=== PATIENT | female | born 1945 | race Caucasian/White ===

== ENCOUNTER 2020-07-23 08:56 | Outpatient (REF) | payer MEDICARE, SELFPAY ==
--- NOTE | 2020-07-23 09:04 | MM_ITS ---
EXAMINATION: MM SCREENING DIGITAL BREAST TOMOSYNTHESIS, BILATERAL CLINICAL INFORMATION: Screening. Asymptomatic. The lifetime risk of breast cancer based on the Tyrer-Cuzick Model is 3%. COMPARISON: Mammography: 07/19/2019, 07/18/2018, 07/14/2017 TECHNIQUE: Digital breast tomosynthesis is performed in both the craniocaudal and mediolateral oblique views along with computer-aided detection (CAD). Synthesized 2D images are generated from the tomosynthesis. Additional exaggerated right CC view is provided. FINDINGS: The breasts are heterogeneously dense, which may obscure small masses (ACR BI-RADS breast composition Category c). The dense breast tissue composition is in the retroareolar regions. The parenchymal pattern is similar to prior studies. Minor bilateral asymmetries are stable. There is no developing density or interval mass or architectural abnormality. No abnormal calcifications. The axilla and skin contours are unremarkable. IMPRESSION: No significant changes from prior studies. ASSESSMENT: BI-RADS 2: Benign RECOMMENDATION: Routine annual mammography screening. This patient's information was entered into a reminder system with a target due date for their next mammogram.
== END 2020-07-23 08:57 | disposition home or self-care (01) ==
LOC: HO.MAMMO 08:56
PROVIDERS: PCP Internal Medicine; Visit Provider Internal Medicine
DX: Z12.31 Encounter for screening mammogram for malignant neoplasm of breast (principal)
CPT/HCPCS: 77063; 77067

== ENCOUNTER 2020-11-06 | Outpatient (REF) | payer MEDICARE, SELFPAY | END 2020-11-06 00:01 | disposition home or self-care (01) | LOC: HO.VC | PROVIDERS: Visit Provider Internal Medicine | DX: Z23 Encounter for immunization (principal) | CPT/HCPCS: 0011A ==

== ENCOUNTER 2020-12-03 | Outpatient (REF) | payer MEDICARE, SELFPAY | END 2020-12-03 00:01 | disposition home or self-care (01) | LOC: HO.VC | PROVIDERS: Visit Provider Internal Medicine | DX: Z13.89 Encounter for screening for other disorder (principal) ==

== ENCOUNTER 2020-12-03 | Outpatient (REF) | payer MEDICARE, SELFPAY | END 2020-12-03 00:01 | disposition home or self-care (01) | LOC: HO.VC | PROVIDERS: Visit Provider Internal Medicine | DX: Z23 Encounter for immunization (principal) | CPT/HCPCS: 0012A ==

== ENCOUNTER → 2020-12-12 10:26 | Outpatient (BNVA) | payer MEDICARE, SELFPAY | PROVIDERS: PCP Internal Medicine; Visit Provider Internal Medicine | DX: J44.9 Chronic obstructive pulmonary disease, unspecified (principal); Z79.51 Long term (current) use of inhaled steroids | CPT/HCPCS: 99212 ==

== ENCOUNTER 2021-05-28 07:59 | Outpatient (REF) | payer MEDICARE, SELFPAY ==
[2021-05-28 09:00] LABS: Hematocrit 43.2 % (37-47); Hemoglobin 13.8 g/dl (12.0-16.0); Mean Corpuscular HGB Conc 31.9 g/dl (31.0-35.0); Mean Corpuscular Hemoglobin 30.7 pg (27.0-33.0); Platelet Count 175 X10*3/uL (160-400); White Blood Count 4.9 X10*3/uL (4.8-10.8)
[2021-05-28 09:29] LABS: Alanine Aminotransferase 19 U/L (0-31); Albumin Level 4.4 g/dL (3.5-5.0); Alkaline Phosphatase 67 U/L (39-117); Anion Gap 11 (12-20); Aspartate Amino Transferase 20 U/L (5-31); Bilirubin Direct 0.5 mg/dL (0.0-0.5); Bilirubin Total 1.7 mg/dL (0.0-1.0); Blood Urea Nitrogen 19 mg/dL (9-16); Calcium 9.6 mg/dL (8.4-10.2); Carbon Dioxide 30 mmol/L (22-29); Chloride 105 mmol/L (96-108); Estimated Glomerular Filt Rate > 60; Glucose Fasting 108 mg/dL (60-99); Potassium 4.4 mmol/L (3.3-5.1); Sodium 142 mmol/L (135-145); Total Protein 6.9 g/dL (6.5-8.0)
[2021-05-28 09:59] LABS: Thyroid Stimulating Hormone 3.69 uIU/mL (0.32-4.0)
== END 2021-05-28 08:00 | disposition home or self-care (01) ==
LOC: HO.LAB 07:59
PROVIDERS: Absent Provider Internal Medicine; PCP Internal Medicine; Visit Provider Nurse Practitioner Family
DX: Z13.1 Encounter for screening for diabetes mellitus (principal); K58.9 Irritable bowel syndrome, unspecified
CPT/HCPCS: 36415; 80053; 80076; 82248; 84443; 85027

== ENCOUNTER 2021-06-11 09:43 | Outpatient (REF) | payer MEDICARE, SELFPAY ==
--- NOTE | ~2021-06-11 | MM_ITS ---
EXAMINATION: BONE DENSITOMETRY CLINICAL INDICATION: Asymptomatic menopausal state. COMPARISON: This is the patient's baseline examination. TECHNIQUE: Using a [employer] DXA System (software version: 13.1) manufactured by [employer], dual-energy x-ray absorptiometry was performed of the lumbar spine and left forearm radius 33%. Patient has had 2 hip replacements, precluding bone density measurement. The images are of good technical quality. Summary results are attached. FINDINGS: AP SPINE L1-L2 (excluding L3 and L4): The data of L1-L4 has been changed to exclude the L3 and L4 vertebral bodies, because degenerative changes at these levels may cause overestimation of lumbar spine density. BMD 1.247 g/cm2, Z-score 2.3, T-score 0.7, normal. LEFT FOREARM RADIUS 33%: BMD 0.739 g/cm2, Z-score 0.7, T-score -1.6, osteopenia. IDENTIFIED RISK FACTORS: Early menopause, secondary osteoporosis, hysterectomy, right oophorectomy. HISTORY OF FRACTURE: None listed. MEDICATIONS: Calcium supplements or multivitamin, vitamin D. MM/XR DEXA axial skeleton IMPRESSION: 1. DIAGNOSIS: Osteopenia based on the lowest T-score value of -1.6 in the forearm radius 33% applying World Health Organization criteria. 2. 10-YEAR FRACTURE RISK PREDICTION, FRAX: Not performed in this patient without a femoral neck BMD measurement. 3. Treatment Recommendations: NOF guidelines recommend consideration for treatment in postmenopausal women and men age 50 and older presenting with the following: -A hip or vertebral (clinical or morphometric) fracture. -T-score less than or equal to -2.5 at the femoral neck or spine after appropriate evaluation to exclude secondary causes. -Low bone mass at the hip or spine and a 10-year fracture probability by FRAX of greater than or equal to 3% for hip fracture or greater than or equal to 20% for major osteoporotic fracture based on the [place] adapted WHO algorithm. 4. Other Recommendations: All treatment decisions require clinical judgment and consideration of individual patient factors, including patient preferences, comorbidities, previous drug use, risk factors not captured in the FRAX model (e.g. frailty, falls, vitamin D deficiency, increased bone turnover, interval significant decline in bone density) and possible under or overestimation of fracture risk by FRAX. Additional medical evaluation for secondary cause of low bone mineral density may be appropriate. FUTURE SCAN RECOMMENDATION: People with diagnosed cases of osteoporosis or at high risk for fracture should have regular bone mineral density tests. For patients eligible for Medicare, routine testing is allowed once every 2 years. The testing frequency can be increased to one year for patients who have rapidly progressing disease, those who are receiving or discontinuing medical therapy to restore bone mass, or have additional risk factors.
== END 2021-06-11 09:44 | disposition home or self-care (01) ==
LOC: HO.MAMMO 09:43
PROVIDERS: PCP Internal Medicine; Visit Provider Nurse Practitioner Family
DX: Z13.820 Encounter for screening for osteoporosis (principal); M85.80 Other specified disorders of bone density and structure, unspecified site; Z90.721 Acquired absence of ovaries, unilateral; Z78.0 Asymptomatic menopausal state; Z79.899 Other long term (current) drug therapy; Z98.890 Other specified postprocedural states
CPT/HCPCS: 77080

== ENCOUNTER → 2021-06-17 10:25 | Outpatient (BNVA) | payer MEDICARE, SELFPAY | PROVIDERS: PCP Internal Medicine; Visit Provider Internal Medicine | DX: J44.9 Chronic obstructive pulmonary disease, unspecified (principal) | CPT/HCPCS: 99212 ==

== ENCOUNTER 2021-07-25 07:59 | Outpatient (REF) | payer MEDICARE, SELFPAY ==
--- NOTE | ~2021-07-25 | MM_ITS ---
EXAMINATION: MM SCREENING DIGITAL BREAST TOMOSYNTHESIS, BILATERAL CLINICAL INFORMATION: Screening. Asymptomatic. The lifetime risk of breast cancer based on the Tyrer-Cuzick Model is 3%. COMPARISON: Mammography: 07/23/2020, 07/19/2019, 07/18/2018, 07/14/2017 TECHNIQUE: Digital breast tomosynthesis is performed in both the craniocaudal and mediolateral oblique views along with computer-aided detection (CAD). Synthesized 2D images are generated from the tomosynthesis. FINDINGS: The breasts are heterogeneously dense, which may obscure small masses (ACR BI-RADS breast composition Category c). There are no significant masses, abnormal calcifications, or other abnormalities. Dense breast composition is predominantly in the anterior breasts. Scattered minor asymmetries are stable. There is no developing density. The axilla and skin contours are unremarkable. No significant changes. MM/MM tomosynthesis screening BI IMPRESSION: No mammographic evidence of malignancy. ASSESSMENT: BI-RADS 2: Benign RECOMMENDATION: Routine annual mammography screening. This patient's information was entered into a reminder system with a target due date for their next mammogram.
== END 2021-07-25 08:00 | disposition home or self-care (01) ==
LOC: HO.MAMMO 07:59
PROVIDERS: Visit Provider Internal Medicine
DX: Z12.31 Encounter for screening mammogram for malignant neoplasm of breast (principal)
CPT/HCPCS: 77063; 77067

== ENCOUNTER → 2021-07-29 12:58 | Outpatient (BNVA) | payer MEDICARE, SELFPAY | PROVIDERS: PCP Internal Medicine; Referring Provider Internal Medicine; Visit Provider Nurse Practitioner Family | DX: K58.2 Mixed irritable bowel syndrome (principal); K59.01 Slow transit constipation; R14.0 Abdominal distension (gaseous) | CPT/HCPCS: 99202 ==

== ENCOUNTER 2021-07-30 09:34 | Outpatient (REF) | payer MEDICARE, SELFPAY ==
[2021-07-30 10:39] LABS: C Reactive Protein 0.37 mg/dL (< or = 0.50); Lipase 17 U/L (8-78)
[2021-07-30 11:22] LABS: Folate 18.8 ng/mL (> or = 4.0); Vitamin B12 380 pg/mL (200-900)
[2021-08-01 18:06] LABS: Transglutaminase Ab IgG <1.0 U/mL; Transglutaminase IgA <1.0 U/mL
[2021-08-04 14:16] LABS: Vitamin D 25-OH, D2 <4 ng/mL; Vitamin D 25-OH, D3 34 ng/mL; Vitamin D 25-OH, Total 34 ng/mL (30-100)
== END 2021-07-30 09:35 | disposition home or self-care (01) ==
LOC: HO.LAB 09:34
PROVIDERS: PCP Internal Medicine; Visit Provider Nurse Practitioner Family
DX: R10.11 Right upper quadrant pain (principal); R19.7 Diarrhea, unspecified; K58.9 Irritable bowel syndrome, unspecified; R14.0 Abdominal distension (gaseous); E55.9 Vitamin D deficiency, unspecified
CPT/HCPCS: 36415; 82306; 82607; 82746; 83516; 83690; 86140

== ENCOUNTER → 2021-09-23 13:24 | Outpatient (BNVA) | payer MEDICARE, SELFPAY | PROVIDERS: PCP Internal Medicine; Referring Provider Internal Medicine; Visit Provider Nurse Practitioner Family | DX: K58.2 Mixed irritable bowel syndrome (principal); R14.0 Abdominal distension (gaseous); K59.01 Slow transit constipation; K57.92 Diverticulitis of intestine, part unspecified, without perforation or abscess without bleeding | CPT/HCPCS: 99212 ==

== ENCOUNTER → 2021-10-28 15:08 | Outpatient (BNVA) | payer MEDICARE, SELFPAY | PROVIDERS: PCP Internal Medicine; Referring Provider Internal Medicine; Visit Provider Nurse Practitioner Family | DX: Z12.11 Encounter for screening for malignant neoplasm of colon (principal); K58.2 Mixed irritable bowel syndrome; K59.01 Slow transit constipation | CPT/HCPCS: 99212 ==

== ENCOUNTER 2021-11-28 09:15 | Day surgery (SDC) | payer MEDICARE, SELFPAY ==
[2021-11-20 15:01] VITALS: BMI 26.4
--- NOTE | 2021-11-27 10:16 | HO.ANESPROP2 ---
Documented by User: Shell Guardado NP 11/27/21 10:17 HPI - Anesthesia Eval Consult details Narrative: 75yo F for Colonoscopy PMFSH Active Problems Active Problems: All Active Problems (Updated 11/20/21 @ 14:57 by Luz Elena Merlos, DAISY) Hypercholesteremia (Acute) Adult general medical exam (Acute) Irritable bowel syndrome (Acute) Osteopenia (Acute) Post-menopausal (Acute) Screening for diabetes mellitus (Acute) COPD (chronic obstructive pulmonary disease) (Acute) Past Medical History Medical History COPD (chronic obstructive pulmonary disease) History of diverticulitis Osteopenia Post-menopausal Screening for diabetes mellitus Family History Family History Father No problems noted. Mother No problems noted. Surgical History Surgical History History of appendectomy History of colonoscopy History of hip replacement History of partial hysterectomy Social History Social History Housing: House Are you a primary career placement services counselor to a significant other at home: No Do you presently have visiting nurse or other home services: No Alcohol intake: current Alcohol intake frequency: 0-2 drinks per day Patient Tobacco Use Status: Former Tobacco user Quit Date: Tobacco use type: Cigarette e-Cigarette/Vaping Use: Never Used Second Hand Smoke Exposure: No Use of substances other than those prescribed or required for medical reasons: No Have you been hit, kicked, punched, or otherwise hurt by someone within the past year? If so, by whom?: No Are you DNR?: No Advance Directives: No Advance Directives Information Provided: Yes Advance Directives on File: No Recently lost weight without trying: No service: No Current occupational status: retired Meds Allergies Allergy/AdvReac Type Severity Reaction Status Date / Time No Known Allergies Allergy Verified 11/20/21 15:01 Home Medications Medication Instructions Recorded Confirmed Last Taken Type albuterol sulfate 90 mcg/actuation 2 puff INHALATION Q6H PRN 12/12/20 11/20/21 Unknown History aerosol inhaler (ProAir HFA) cyclosporine 0.05 % eye drops in a 1 drp OPHTHALMIC (EYE) BID 12/12/20 11/20/21 Unknown History dropperette omeprazole magnesium 20 mg 20 mg PO DAILY 06/17/21 11/20/21 11/28/21 History tablet,delayed release (Prilosec OTC) multivitamin 1 tab PO DAILY 07/29/21 11/20/21 Unknown History ciprofloxacin HCl 500 mg tablet 500 mg PO BID PRN 11/20/21 11/20/21 Unknown History (Cipro) Exam Exam Date and Time: November 27, 2021 1016 Height,Weight and Vital Signs: Height 5 ft 3 in Weight 67.585 kg Pertinent Lab Results Pertinent Lab Results: Laboratory Tests 05/28/21 05/28/21 08:30 08:30 WBC 4.9 Hgb 13.8 Hct 43.2 Plt Count 175 Sodium 142 Potassium 4.4 Chloride 105 Carbon Dioxide 30 H BUN 19 H Creatinine 0.86 Assessment and Plan Assessment Anesthesia Assessment: Chart Reviewed Documented by User: Iva Zimmer MD 11/28/21 10:44 [facility], [facility] Past Medical History Medical History COPD (chronic obstructive pulmonary disease) History of diverticulitis Osteopenia Post-menopausal Screening for diabetes mellitus Family History Family History Father No problems noted. Mother No problems noted. Surgical History Surgical History History of appendectomy History of colonoscopy History of hip replacement History of partial hysterectomy History of Problems with Anesthesia: No Social History Social History Housing: House Are you a primary career placement services counselor to a significant other at home: No Do you presently have visiting nurse or other home services: No Alcohol intake: current Alcohol intake frequency: 0-2 drinks per day Patient Tobacco Use Status: Former Tobacco user Quit Date: 1980's Tobacco use type: Cigarette e-Cigarette/Vaping Use: Never Used Second Hand Smoke Exposure: No Use of substances other than those prescribed or required for medical reasons: No Have you been hit, kicked, punched, or otherwise hurt by someone within the past year? If so, by whom?: No Are you DNR?: No Advance Directives: No Advance Directives Information Provided: Yes Advance Directives on File: No Recently lost weight without trying: No service: No Current occupational status: retired Meds Allergies Allergy/AdvReac Type Severity Reaction Status Date / Time No Known Allergies Allergy Verified 11/20/21 15:01 Home Medications Medication Instructions Recorded Confirmed Last Taken Type albuterol sulfate 90 mcg/actuation 2 puff INHALATION Q6H PRN 12/12/20 11/20/21 Unknown History aerosol inhaler (ProAir HFA) cyclosporine 0.05 % eye drops in a 1 drp OPHTHALMIC (EYE) BID 12/12/20 11/20/21 Unknown History dropperette omeprazole magnesium 20 mg 20 mg PO DAILY 06/17/21 11/20/21 11/28/21 History tablet,delayed release (Prilosec OTC) multivitamin 1 tab PO DAILY 07/29/21 11/20/21 Unknown History ciprofloxacin HCl 500 mg tablet 500 mg PO BID PRN 11/20/21 11/20/21 Unknown History (Cipro) Exam Airway Mallampati Class: II TM Dist: >3cm Neck ROM: Full Loose/Missing/Broken Teeth: No Heart: RRR Lungs: CTA Assessment and Plan Assessment Anesthesia Assessment: Anesthesia Plan Discussed Final Anesthetic Review History of Problems with Anesthesia: No NPO: Yes ASA Class: III Final Preanesthetic Review: Meds/Allgs Chart Reviewed, Consent Obtained/Reviewed and Anes Risks/Benef Reviewed Patient Risk: Intermediate Procedure Risk: Low Anesthetic Plan Anesthetic Plan: MAC: Disposition: Standard PACU
[2021-11-28 09:36] VITALS: BP 160/77; PULSE 69; RESP 17; TEMP 36.1; O2SAT 96
[2021-11-28] MEDS: Lactated Ringers 1,000 ML 100 ML IVCONT (09:57)
--- NOTE | 2021-11-28 10:23 | MHC.SHP ---
Pre-Procedural Eval Section A Date of Service: 11/28/21 Section B Chief Complaint: Screening, IBS without diarrhea Details of Present Illness: Colon cancer screening, constipation Relevant Family History (Specify if Yes): No Relevant Social History: Tobacco Use (former smoker) Present Medications: see Short Stay Collaborative assessment Medical History: Significant History (COPD (chronic obstructive pulmonary disease) Osteopenia Post-menopausal Screening for diabetes mellitus) History of Previous Operations: Relevant previous surgery/procedure and date(s) (History of appendectomy History of colonoscopy History of hip replacement History of partial hysterectomy) Allergies: Allergies Allergy/AdvReac Type Severity Reaction Status Date / Time No Known Allergies Allergy Verified 11/20/21 15:01 Review of Systems Sugical H&P ROS: Negative: Constitution, Cardiovascular and Respiratory and Yes, Specify: Gastrointestinal (Chronic constipation) Exam Surgical H&P Exam: Normal: Heart, Normal: Lungs and Normal: Extremities Plan Diagnosis/Plan: Unchanged I have reviewed the history and physical and performed a pertinent physical examination on my patient. No changes have occurred unless specified.
--- NOTE | 2021-11-28 10:24 | P.OP_ITS ---
Operative Note Operative Note Date of Service: 11/28/21 Narrative: Pre-op diagnosis: Colon cancer screening, constipation, abdominal bloating, hx of diverticulitis Post-op diagnosis:?other (Colon polyps, diverticulosis, hemorrhoids) Procedure: COLONOSCOPY TILL CECUM WITH BIOPSIES Consent: Indications for the procedure and potential complications of bleeding, perforation, reaction to medications and missed diagnosis were discussed with the patient and informed consent was obtained. Instrument: Olympus PCF H 190 L variable stiffness pediatric colonoscope and Olympus GIF H 190 mid size upper endoscope Monitoring: Vital signs and clinical assessment, intermittent blood pressure monitoring, continuous EKG monitoring, Pulse oximetry and Carbon Dioxide monitoring were done throughout the procedure. Colon withdrawl time was 14 minutes. Procedure: The patient was placed in the left lateral decubitis position and pre-procedure medications were administered. After a digital rectal examination of the ano-rectum, the video colonoscope was inserted into the rectum and advanced to 20 cms into the sigmoid colon.? It was not possible to advanced further due to a sharp hairpin turn with narrowing due to severe diverticular disease.? Pediatric colonoscopy was removed.? A mid-size endoscope was inserted into the rectum and advanced through the the area of narrowing with the some difficulty.? The endoscope was advanced to the ileocecal valve.? Cecum was partially visualized across the ileocecal valve and appeared normal. The colonoscope was slowly withdrawn in a retrograde panoramic fashion and the colon mucosa was carefully examined including a retroflexed view of the rectum. Findings and interventions are described below. Procedure Difficulty: Pt was placed in the supine position to navigate a hairpin turn/narrowing in the SC at 18 to 20 cms Findings: Terminal Ileum: Not evaluated Cecum:? Partially evaluated and appeared normal Ascending Colon:? Two 4-5 mm sessile polyps removed with a cold bx Scattered diverticulosis Transverse Colon:? Scattered diverticulosis Descending Colon:? Severe diverticulosis Sigmoid Colon:? Severe diverticulosis with luminal narrowing and a sharp turn/narrowing due to severe diverticulosis at 18 to 20 cms traversed with difficulty Rectum:? Normal Ano-rectum:? Moderate internal hemorrhoids and area of erythema in the distal rectum likely due to rectal prolapse Colon preparation:? Good? Impression and Post Procedure Diagnosis: Colonoscopy Findings: Two small polyps removed Moderate to severe diverticulosis seen in the entire colon Moderate hemorrhoids on retroflexed exam. Plan: Await pathology results Patient to schedule a FU appointment in the GI Clinic with Luisa Lindsey FNP- [facility]. Repeat Colonoscopy interval based on path results - in 3-5 years if polyps are adenomatous and colon cancer screening can be discontinued if polyps are hyperplastic. Above findings were reviewed with the patient and colon polyps and diverticulosis handouts were given in the discharge area Surgeon: Francois Little MD Anesthesia:?MAC (Dr Zimmer) Was an Criminal Investigative Agent used for this Procedure?:?Yes Criminal Investigative Agent:?Sherine Sykes Estimated blood loss (mL):?0 Condition:?stable Disposition:?PACU
[2021-11-28 11:51] VITALS: BP 168/89; PULSE 67; RESP 20; TEMP 36.7; O2SAT 98
[2021-11-28 12:05] VITALS: BP 172/88; PULSE 66; RESP 18; O2SAT 98
[2021-11-28 12:20] VITALS: BP 179/83; PULSE 70; RESP 18; TEMP 36.7; O2SAT 99
== END 2021-11-28 13:10 | disposition home or self-care (01) ==
PROVIDERS: PCP Internal Medicine; Visit Provider Internal Medicine Gastroenterology
PROC: 0DJD8ZZ Inspection of Lower Intestinal Tract, Via Natural or Artificial Opening Endoscopic (ICD-10-PCS; CPT 45378; principal; 2021-11-28 10:20)
DX: Z12.11 Encounter for screening for malignant neoplasm of colon (principal); K58.2 Mixed irritable bowel syndrome; Z87.19 Personal history of other diseases of the digestive system; D12.2 Benign neoplasm of ascending colon; K57.30 Diverticulosis of large intestine without perforation or abscess without bleeding; K64.8 Other hemorrhoids; M85.80 Other specified disorders of bone density and structure, unspecified site; J44.9 Chronic obstructive pulmonary disease, unspecified; Z79.51 Long term (current) use of inhaled steroids; Z87.891 Personal history of nicotine dependence
CPT/HCPCS: 45380; 88305; J3010

== ENCOUNTER → 2021-12-17 10:25 | Outpatient (BNVA) | payer MEDICARE, SELFPAY | PROVIDERS: PCP Internal Medicine; Visit Provider Internal Medicine | DX: J44.9 Chronic obstructive pulmonary disease, unspecified (principal) | CPT/HCPCS: 99212 ==

== ENCOUNTER → 2021-12-23 12:06 | Outpatient (BNVA) | payer MEDICARE, SELFPAY | PROVIDERS: PCP Internal Medicine; Referring Provider Internal Medicine; Visit Provider Nurse Practitioner Family | DX: K58.2 Mixed irritable bowel syndrome (principal); D36.9 Benign neoplasm, unspecified site; K57.90 Diverticulosis of intestine, part unspecified, without perforation or abscess without bleeding; Z98.890 Other specified postprocedural states | CPT/HCPCS: 99212 ==

== ENCOUNTER 2022-03-31 10:35 | Outpatient (REF) | payer MEDICARE, SELFPAY ==
[2022-03-31 11:34] LABS: MANUAL DIFF FLAG NO
[2022-03-31 12:00] LABS: Basophils Absolute Auto 0.1 X10*3/uL (0.0-0.2); Basophils Percent Auto 1.1 % (0-2); Eosinophils Absolute Auto 0.2 X10*3/uL (0.0-0.4); Eosinophils Percent Auto 4.3 % (0-4); Hematocrit 40.5 % (37.0-47.0); Hemoglobin 13.3 g/dl (12.0-16.0); Imm Gran Abs Auto 0.03 X10*3/uL (0.00-0.03); Imm Gran Pct Auto 0.7 % (0.0-0.4); Lymphocytes Absolute Auto 1.5 X10*3/uL (1.2-4.9); Lymphocytes Percent Auto 33.3 % (20-40); Mean Corpuscular HGB Conc 32.8 g/dl (31.0-35.0); Mean Corpuscular Hemoglobin 31.2 pg (27.0-33.0); Mean Corpuscular Volume 95.1 fL (80.0-98.0); Mean Platelet Volume 10.4 fL (9.4-12.3); Monocytes Absolute Auto 0.4 X10*3/uL (0.1-1.2); Monocytes Percent Auto 8.3 % (2-11); Neutrophils Absolute Auto 2.3 x10*3/uL (2.0-8.3); Neutrophils Percent Auto 52.3 % (45-73); Platelet Count 189 X10*3/uL (160-400); Red Blood Count 4.26 X10*6/uL (4.20-5.50); Red Cell Distribution Width 13.1 % (11.0-16.0); White Blood Count 4.5 X10*3/uL (4.8-10.8)
[2022-03-31 12:01] LABS: Alanine Aminotransferase 20 U/L (0-31); Albumin Level 4.4 g/dL (3.5-5.0); Alkaline Phosphatase 73 U/L (39-117); Anion Gap 13 (12-20); Aspartate Amino Transferase 23 U/L (5-31); Bilirubin Direct 0.4 mg/dL (0.0-0.5); Bilirubin Total 1.4 mg/dL (0.0-1.0); Blood Urea Nitrogen 18 mg/dL (9-16); Calcium 9.5 mg/dL (8.4-10.2); Carbon Dioxide 27 mmol/L (22-29); Chloride 106 mmol/L (96-108); Cholesterol 222 mg/dL; Estimated Glomerular Filt Rate > 60; Glucose Random 109 mg/dL (60-115); HDL Cholesterol 61 mg/dL; LDL Cholesterol Calculated 118 mg/dl; Potassium 4.2 mmol/L (3.3-5.1); Sodium 142 mmol/L (135-145); Triglycerides 219 mg/dL
[2022-03-31 12:28] LABS: Thyroid Stimulating Hormone 2.25 uIU/mL (0.32-4.0)
[2022-03-31 12:34] LABS: B Type Natriuretic Peptide 36 pg/mL (<100)
[2022-03-31 13:41] LABS: Appearance Urine CLEAR; Color Urine YELLOW; Glucose Urine UA NEG (NEG); Leukocyte Esterase Urine NEG (NEG); Nitrite Urine NEG (NEG); Urine Blood TRACE (NEG); Urine Ketones NEG (NEG); Urine Protein NEG (NEG-TRACE)
[2022-03-31 13:58] LABS: RBC Urine 0-2 /HPF (0); WBC Urine 0 /HPF (0-4)
== END 2022-03-31 10:36 | disposition home or self-care (01) ==
LOC: HO.HMGCLDS 10:35
PROVIDERS: PCP Internal Medicine; Visit Provider Physician Assistant
DX: I10 Essential (primary) hypertension (principal); R60.0 Localized edema
CPT/HCPCS: 36415; 80048; 80061; 80076; 81001; 83880; 84443; 85025

== ENCOUNTER 2022-04-02 13:42 | Outpatient (REF) | payer MEDICARE, SELFPAY ==
--- NOTE | ~2022-04-02 | US_ITS ---
EXAMINATION: US VENOUS ULTRASOUND WITH DOPPLER LOWER EXTREMITY, BILATERAL CLINICAL INFORMATION: Lower extremity edema COMPARISON: Left lower extremity DVT study 12/20/2012 TECHNIQUE: Ultrasound of the deep veins is performed from the hip to the calf with compression sonography and color and pulse Doppler assessment. Spectral analysis with color-flow imaging is performed. FINDINGS: RIGHT: There is normal venous compression and respiratory variation and augmented flow. The visualized common femoral vein, superficial femoral vein, profunda femoral vein, popliteal vein, and the trifurcation region shows no evidence of deep venous thrombosis. There is no significant popliteal fossa cyst. LEFT: There is normal venous compression and respiratory variation and augmented flow. The visualized common femoral vein, superficial femoral vein, profunda femoral vein, popliteal vein, and the trifurcation region shows no evidence of deep venous thrombosis. There is no significant popliteal fossa cyst. If the patient's symptoms persist, followup ultrasound in 5 days 7 days might be of value to exclude proximal propagation from a non-visualized calf vein. US/US venous duplex LE BI IMPRESSION: No DVT demonstrated in either lower extremity.
== END 2022-04-02 13:43 | disposition home or self-care (01) ==
LOC: HO.US 13:42
PROVIDERS: PCP Internal Medicine; Visit Provider Physician Assistant
DX: R60.0 Localized edema (principal)
CPT/HCPCS: 93970

== ENCOUNTER → 2022-06-15 09:25 | Outpatient (BNVA) | payer MEDICARE, SELFPAY | PROVIDERS: PCP Internal Medicine; Visit Provider Nurse Practitioner Family | DX: K21.9 Gastro-esophageal reflux disease without esophagitis (principal); K58.2 Mixed irritable bowel syndrome; K57.90 Diverticulosis of intestine, part unspecified, without perforation or abscess without bleeding | CPT/HCPCS: 99212 ==

== ENCOUNTER → 2022-06-16 10:25 | Outpatient (BNVA) | payer MEDICARE, SELFPAY | PROVIDERS: PCP Internal Medicine; Visit Provider Internal Medicine | DX: J44.9 Chronic obstructive pulmonary disease, unspecified (principal); R60.0 Localized edema | CPT/HCPCS: 99212 ==

== ENCOUNTER 2022-07-30 08:22 | Outpatient (REF) | payer MEDICARE, SELFPAY ==
--- NOTE | ~2022-07-30 | MM_ITS ---
EXAMINATION: MM SCREENING DIGITAL BREAST TOMOSYNTHESIS, BILATERAL CLINICAL INFORMATION: Screening. Asymptomatic. The lifetime risk of breast cancer based on the Tyrer-Cuzick Model is 1.9%. COMPARISON: Mammography: July 25, 2021 and studies dating back to June 26, 2016 TECHNIQUE: Digital breast tomosynthesis is performed in both the craniocaudal and mediolateral oblique views along with computer-aided detection (CAD). Synthesized 2D images are generated from the tomosynthesis. FINDINGS: There are scattered areas of fibroglandular density (ACR BI-RADS breast composition Category b). There are no significant masses, abnormal calcifications, or other abnormalities. MM/MM tomosynthesis screening BI IMPRESSION: No significant change from ASSESSMENT: BI-RADS 1: Negative RECOMMENDATION: Routine annual mammography screening. This patient's information was entered into a reminder system with a target due date for their next mammogram.
== END 2022-07-30 08:23 | disposition home or self-care (01) ==
LOC: HO.MAMMO 08:22
PROVIDERS: PCP Internal Medicine; Visit Provider Internal Medicine
DX: Z12.31 Encounter for screening mammogram for malignant neoplasm of breast (principal)
CPT/HCPCS: 77063; 77067

== ENCOUNTER → 2022-11-09 09:25 | Outpatient (BNVA) | payer MEDICARE, SELFPAY | PROVIDERS: PCP Internal Medicine; Referring Provider Internal Medicine; Visit Provider Nurse Practitioner Family | DX: K57.30 Diverticulosis of large intestine without perforation or abscess without bleeding (principal); K57.92 Diverticulitis of intestine, part unspecified, without perforation or abscess without bleeding; K58.2 Mixed irritable bowel syndrome | CPT/HCPCS: 99212 ==

== ENCOUNTER → 2022-11-17 15:21 | Outpatient (BNVA) | payer MEDICARE, SELFPAY | PROVIDERS: PCP Internal Medicine; Visit Provider Nurse Practitioner Family | DX: K58.2 Mixed irritable bowel syndrome (principal); K57.92 Diverticulitis of intestine, part unspecified, without perforation or abscess without bleeding | CPT/HCPCS: 99212 ==

== ENCOUNTER 2022-11-18 08:16 | Outpatient (REF) | payer MEDICARE, SELFPAY ==
[2022-11-18 08:50] LABS: Hematocrit 42.1 % (37.0-47.0); Hemoglobin 13.5 g/dl (12.0-16.0); Mean Corpuscular HGB Conc 32.1 g/dl (31.0-35.0); Mean Corpuscular Hemoglobin 30.6 pg (27.0-33.0); Mean Corpuscular Volume 95.5 fL (80.0-98.0); Mean Platelet Volume 10.2 fL (9.4-12.3); Platelet Count 197 X10*3/uL (160-400); Red Blood Count 4.41 X10*6/uL (4.20-5.50); Red Cell Distribution Width 12.9 % (11.0-16.0); White Blood Count 5.6 X10*3/uL (4.8-10.8)
[2022-11-18 09:25] LABS: Alanine Aminotransferase 18 U/L (0-31); Albumin Level 4.4 g/dL (3.5-5.0); Alkaline Phosphatase 67 U/L (39-117); Anion Gap 13 (12-20); Aspartate Amino Transferase 22 U/L (5-31); Bilirubin Direct 0.3 mg/dL (0.0-0.5); Bilirubin Total 1.4 mg/dL (0.0-1.0); Blood Urea Nitrogen 21 mg/dL (9-16); Calcium 9.6 mg/dL (8.4-10.2); Carbon Dioxide 27 mmol/L (22-29); Chloride 106 mmol/L (96-108); Cholesterol 240 mg/dL; Estimated Glomerular Filt Rate > 60; Glucose Random 110 mg/dL (60-115); HDL Cholesterol 59 mg/dL; LDL Cholesterol Calculated 147 mg/dl; Potassium 4.4 mmol/L (3.3-5.1); Sodium 142 mmol/L (135-145); Triglycerides 173 mg/dL
[2022-11-18 09:41] LABS: Thyroid Stimulating Hormone 4.03 uIU/mL (0.32-4.0)
== END 2022-11-18 08:17 | disposition home or self-care (01) ==
LOC: HO.LAB 08:16
PROVIDERS: Absent Provider Nurse Practitioner Family; PCP Internal Medicine; Visit Provider Internal Medicine
DX: E78.00 Pure hypercholesterolemia, unspecified (principal); R10.11 Right upper quadrant pain
CPT/HCPCS: 36415; 80048; 80061; 80076; 84443; 85027

== ENCOUNTER 2022-11-19 09:07 | Outpatient (REF) | payer MEDICARE, SELFPAY ==
--- NOTE | ~2022-11-19 | CT_ITS ---
EXAMINATION: CT ABDOMEN AND PELVIS WITH CONTRAST CLINICAL INFORMATION: Unspecified abdominal pain. COMPARISON: None TECHNIQUE: Multidetector volumetric images were obtained from the superior aspect of the liver through the pubic symphysis following administration 85 mL of Omnipaque 350 intravenous contrast. Sagittal and coronal reformatted images were obtained on the technologist's workstation. There is some limitation secondary to extensive metallic artifact securing the inferior pelvis. Oral contrast: No This CT examination was performed using dose optimization techniques as appropriate, variously including the following: *Automated exposure control *Adjustment of mA and/or kV according to patient size (this includes techniques or standardized protocols for targeted exams where dose is matched to indication/reason for exam; i.e. extremities or head) *Use of iterative reconstruction technique DLP: 391 mGy-cm FINDINGS: LUNG BASES: The visualized lung bases are unremarkable. LIVER, GALLBLADDER, AND BILIARY TREE: Small focal low-attenuation is seen posteroinferiorly in segment IVb towards the gallbladder fossa without other significant abnormality. The gallbladder and biliary tree are unremarkable. PANCREAS: Unremarkable. SPLEEN: Unremarkable. ADRENAL GLANDS: Unremarkable. KIDNEYS AND URETERS: Mild caliectasis bilaterally without obstructing abnormality. No nephrolithiasis or ureterectasis. BLADDER: Unremarkable. GASTROINTESTINAL TRACT: Stomach and bowel are unremarkable. Well-visualized. No evidence for acute appendicitis. The colon shows scattered mild to moderate diverticulosis, most pronounced in the descending and sigmoid colon without surrounding abnormality. The rectum is unremarkable. ABDOMINAL WALL: Mild to moderate fat-containing inguinal hernias bilaterally, right greater than left. LYMPH NODES: No lymphadenopathy. VASCULAR: Unremarkable. PELVIC VISCERA: Status post hysterectomy. No adnexal abnormality. MUSCULOSKELETAL: Mild degenerative disc disease at L3-L4 and L4-L5. Asymmetric atrophy of the right psoas muscle. CT/CT abdomen pelvis w IV con IMPRESSION: 1. No acute intra-abdominal/pelvic abnormality to explain the patient's pain. 2. Mild to moderate colonic diverticulosis without evidence for acute diverticulitis.
[2022-11-19] MEDS: iohexoL 350 MG/ML 100 ML INFUS..BTL 85 ML IV (12:23)
[2022-11-19] MEDS: Barium Sulfate Oral (Berry) 450 ML ORAL.SUSP 900 ML PO (12:24)
== END 2022-11-19 09:08 | disposition home or self-care (01) ==
LOC: HO.CT 09:07
PROVIDERS: PCP Internal Medicine; Visit Provider Nurse Practitioner Family
DX: R10.9 Unspecified abdominal pain (principal); Z87.19 Personal history of other diseases of the digestive system
CPT/HCPCS: 74177; Q9967

== ENCOUNTER → 2022-12-15 10:27 | Outpatient (BNVA) | payer MEDICARE, SELFPAY | PROVIDERS: PCP Internal Medicine; Visit Provider Internal Medicine | DX: J44.9 Chronic obstructive pulmonary disease, unspecified (principal); R60.0 Localized edema | CPT/HCPCS: 99212 ==

== ENCOUNTER → 2023-02-10 10:21 | Outpatient (BNVA) | payer MEDICARE, SELFPAY | PROVIDERS: PCP Internal Medicine; Referring Provider Internal Medicine; Visit Provider Nurse Practitioner Family | DX: K57.92 Diverticulitis of intestine, part unspecified, without perforation or abscess without bleeding (principal) | CPT/HCPCS: 99212 ==

== ENCOUNTER 2023-04-28 09:23 | Outpatient (AMB) | payer MEDICARE, SELFPAY ==
--- NOTE | 2023-04-28 09:39 | MHC.PC.OV ---
Vital Signs 04/28/23 09:40 Height 5 ft 3 in Weight 148 lb 8 oz BMI 26.3 BP 120/72 Blood Pressure Location Lt brachial Position Sitting Pulse 71 Pulse Source Pulse Oximeter Pulse Oximetry (%) 96 Oxygen Delivery Method Room Air Intake Visit Reasons: 3mth f/u (Medications) Intake Note: Patient is here to follow up on medication review. 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 per policy Accompanied by: Self / Same As Patient Allergies magnesium Allergy (Intermediate, Verified 04/28/23 12:14) upset stomach Medication List - Last Reconciled 04/28/23 by Ryan Hagan MD albuterol sulfate 90 mcg/actuation (ProAir HFA) 2 puffs inhalation Q6H PRN 30 days ciprofloxacin HCl 500 mg PO BID cyclosporine 0.05% (Restasis) 1 drp ophthalmic (eye) Q12H docusate sodium 100 mg PO BEDTIME enalapril-hydrochlorothiazide 5-12.5 mg 1 tab PO DAILY multivitamin 1 tab PO DAILY polyethylene glycol 3350 (Miralax) 17 grams PO DAILY rosuvastatin 5 mg PO DAILY Symbicort 160-4.5 mcg/actuation (budesonide-formoterol) 2 puffs PO BID NS Tobacco use date assessed: 04/28/23 Fall risk assessment: No Falls in past year Last assessed Fall Risk: 04/28/23 Dental Screening Dental Screen Date: 04/28/23 Did you have a dental visit in the last 12 months?: Yes Did you have a dental problem in the last 6 months where you did not have access to dental care?: No Was dental information given to patient?: Patient has dentist HPI 3mth f/u (Medications) HPI Details 77-year-old female presents to the office to discuss her chronic medical conditions. Patient is compliant with all medications. In her last blood work TSH was borderline elevated. Compliant with all medications. Patient is reporting pain in the right hip area. Symptoms are worse especially when she gets up from a sitting position. [facility] Medical History COPD (chronic obstructive pulmonary disease) Diverticulosis Essential hypertension History of diverticulitis Osteopenia Screening for diabetes mellitus Tubular adenoma Surgical History History of appendectomy History of colonoscopy History of hip replacement History of partial hysterectomy Family History Father No problems noted. Mother No problems noted. Social History Housing: House Are you a primary long term acute care registered nurse to a significant other at home: No Do you presently have visiting nurse or other home services: No Alcohol intake: current Alcohol intake frequency: 0-2 drinks per day Patient Tobacco Use Status: Former Tobacco user Quit Date: Tobacco use type: Cigarette e-Cigarette/Vaping Use: Never Used Second Hand Smoke Exposure: No service: No Current occupational status: retired Cognitive needs: No Hearing needs: No Vision needs: Yes (contact) Questionnaire Thrive Questionnaire Date Thrive assessed: 11/11/22 ABDIRASHID-7 AMB Questionnaire ABDIRASHID-7 Date ABDIRASHID - 7 assessed: 11/11/22 Source: Developed by Drs. Dm Medina, Sabrina Lora, Junito Iyer and colleagues, with an educational janessa from [employer]. Physical exam (Primary Care) Vital Signs: Last Vital Signs Pulse 71 04/28/23 09:40 BP 120/72 04/28/23 09:40 Pulse Ox 96 04/28/23 09:40 Oxygen Delivery Method Room Air 04/28/23 09:40 Care Plan Goal for BP management: Blood pressure is in range. Continue current medications. BMI result Body Mass Index 26.3 Tobacco/Smoking Status: Tobacco use Status Tobacco use date assessed 04/28/23 04/28/23 09:46 Patient Tobacco Use Status Former Tobacco user 04/28/23 09:46 Tobacco use type Cigarette 04/28/23 09:46 e-Cigarette/Vaping Use Never Used 04/28/23 09:46 Thrive Assessment: Date of Thrive Assessment Date Thrive assessed 11/11/22 04/28/23 09:46 Advance Care Planning discussion: Exists, not on file Date of discussion: 04/28/23 Who was present: Patient Forms completed: Health Care Proxy Time spent: 1-15 minutes, not on file Actual minutes spent: 5 Const General: cooperative, healthy appearing and comfortable HENDC Head: Yes normal to inspection and Yes atraumatic Eyes General: appearance normal, both eyes and all related structures Neck Neck: Yes normal visual inspection and Yes full ROM Chest Chest palpation & inspection: normal inspection of the chest Resp Effort & Inspection: normal respiratory effort Auscultation: clear to auscultation bilaterally Cardio Jugular venous distension: no JVD Palpation: normal PMI Rate: regular rate Heart sounds: S1 normal heart sound present and S2 normal heart sound present GI Palpation (GI): Soft to palpation and No hepatosplenomegaly present Extrem General: Yes normal to inspection and Yes full ROM Assessment and Plan Assessment & Plan (1) Essential hypertension: Code(s): I10 - Essential (primary) hypertension Plan: Blood pressure is in range. Continue current medications. (2) Right hip pain: Code(s): M25.551 - Pain in right hip Plan: Physiotherapy suggested. Extra-strength Tylenol suggested. Orders: Orders Thyroid Stimulating Hormone Today I10 - Essential (primary) hypertension Coding Level of Care Code Est Pt Level 4 (96867) Diagnoses Essential hypertension I10 Right hip pain M25.551 Additional Codes Vital Signs *Quality* - Advance Care Planning discussion: Exists, not on file ([id number]) Vital Signs *Quality* - Time spent: 1-15 minutes, not on file ([id number])
[2023-04-28 09:40] VITALS: BP 120/72; PULSE 71; O2SAT 96; BMI 26.3
== END 2023-04-28 10:08 | disposition home or self-care (01) ==
PROVIDERS: Visit Provider Internal Medicine
DX: I10 Essential (primary) hypertension (principal); M25.551 Pain in right hip; Z00.00 Encounter for general adult medical examination without abnormal findings
CPT/HCPCS: 1123F; 1124F; 99214

== ENCOUNTER 2023-05-13 11:38 | Outpatient (REF) | payer MEDICARE, SELFPAY ==
[2023-05-13 15:00] LABS: Blood Urea Nitrogen 23 mg/dL (9-16); Estimated Glomerular Filt Rate 58
[2023-05-13 15:08] LABS: Thyroid Stimulating Hormone 1.93 uIU/mL (0.32-4.0)
== END 2023-05-13 11:39 | disposition home or self-care (01) ==
LOC: HO.LAB 11:38
PROVIDERS: Nurse Practitioner Family; PCP Internal Medicine; Visit Provider Internal Medicine
DX: R10.11 Right upper quadrant pain (principal); I10 Essential (primary) hypertension
CPT/HCPCS: 36415; 82565; 84443; 84520

== ENCOUNTER 2023-06-15 09:18 | Outpatient (AMB) | payer MEDICARE, SELFPAY ==
--- NOTE | 2023-06-15 09:22 | MHC.OFFVIS ---
Intake Vital Signs 06/15/23 09:24 Height 5 ft 3 in Weight 149 lb 4 oz BMI 26.4 BP 114/52 L Blood Pressure Location Lt brachial Position Sitting Pulse 64 Intake Visit Reasons: 1 year follow up CIC, diverticulosis Intake Note: Laura presents in the office as a 1 year follow up. CC: She states that she just recently had a flare up - it was persistent but not one of her worst. 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 We discussed different choices of medications and came up with changing the timing when she will take them. Patient will take MiraLax in the morning and will try Colace at night time. We will not order any bowel stimulants as that might contribute to patient's pain due to that diverticulosis of the colon that might be painful. Patient is taking probiotic which also helps keeping her intestine healthy. Patient will see me in 6 months, sooner on as needed basis. She is agreeable to plan of care and verbalizes understanding of instructions. She was given the opportunity to ask questions and all questions answered. TODAY'S VISIT Patient is here today for follow-up. Patient reports that last week on Wednesday she started with left lower quadrant pain. Patient reports that prior to left lower quadrant pain patient started with diarrhea then cramping. Then patient was constipated for 2 days. Patient started her Cipro then. Symptoms are resolving now. Patient states that she never had fever or chills. No blood in her stools. Patient denies melena. Patient reports that her stools normalized. However patient does report that she does not move her bowels every day. Does not feel like she empties them completely. Patient is taking Colace every day. Patient denies dyspepsia, dysphagia or odynophagia. Patient denies any other GI concerning symptoms. Patient had colonoscopy in November of 2021 and recommendation was made for colonoscopy to be repeated in 3-5 years. [facility] Medical History Diverticulosis Essential hypertension Tubular adenoma History of diverticulitis Osteopenia Screening for diabetes mellitus COPD (chronic obstructive pulmonary disease) Surgical History History of colonoscopy History of partial hysterectomy History of hip replacement History of appendectomy Family History Father No problems noted. Mother No problems noted. Social History Housing: House Are you a primary acute care registered nurse to a significant other at home: No Do you presently have visiting nurse or other home services: No Alcohol intake: current Alcohol intake frequency: 0-2 drinks per day Patient Tobacco Use Status: Former Tobacco user Quit Date: Tobacco use type: Cigarette e-Cigarette/Vaping Use: Never Used Second Hand Smoke Exposure: No service: No Current occupational status: retired Cognitive needs: No Hearing needs: No Vision needs: Yes (contact) Review of Systems Const Denies weight gain and Denies weight loss ENT Reports no additional complaints, Denies dysphagia and Denies odynophagia Card Reports no additional complaints Resp Reports no additional complaints GI Reports abdominal pain (llq), Denies belching, Denies melena, Denies bloating, Denies change in bowel habits, Denies dysphagia, Denies excessive flatus, Denies dyspepsia, Denies heartburn, Denies diarrhea, Reports loose stools, Denies nausea, Denies odynophagia and Denies vomiting Reports no additional complaints Musc Reports no additional complaints Neuro Reports no additional complaints Psych Reports no additional complaints Endo Reports no additional complaints Physical Exam Vital Signs: Last Vital Signs Pulse 64 06/15/23 09:24 BP 114/52 L 06/15/23 09:24 BMI result Body Mass Index 26.4 Const General: healthy appearing, no acute distress and well developed Nutritional Appearance: well nourished Orientation/consciousness: patient oriented x3 HEENT Head: Yes normal to inspection, Yes normocephalic and Yes atraumatic Face and sinus: Yes normal facial exam Mouth: Normal oral and palatal mucosa present Throat: Yes posterior oropharynx normal, Yes tonsils normal and Yes uvula midline Eyes General: appearance normal, both eyes and all related structures Neck Neck: Yes normal visual inspection, Yes full ROM and Yes trachea midline Thyroid: Thyroid normal Resp Effort & Inspection: normal respiratory effort, able to speak in complete sentences, no tracheal deviation and symmetric chest movement Auscultation: clear to auscultation bilaterally Cardio Rate: regular rate Heart sounds: S1 normal heart sound present and S2 normal heart sound present GI Inspection: Yes normal to inspection and No distended Palpation (GI): Soft to palpation, not firm, nontender and No hepatosplenomegaly present Auscultation: normal bowel sounds General: Yes no CVA tenderness Back/Spine/Pelvis Back: no CVA tenderness Skin General skin exam: elasticity normal, turgor normal and dry skin Neuro General: patient oriented x3 Psych Appearance: grossly normal Mental Status: mental status grossly normal Speech and movement: Normal speech and movement present Assessment & Plan Assessment & Plan (1) Diverticulosis: Code(s): K57.90 - Diverticulosis of intestine, part unspecified, without perforation or abscess without bleeding (2) Irritable bowel syndrome: Code(s): K58.9 - Irritable bowel syndrome without diarrhea Qualifiers: Irritable bowel syndrome type: with both diarrhea and constipation Qualified Code(s): K58.2 - Mixed irritable bowel syndrome Plan Patient had severe diverticulosis of sigmoid colon. Recently patient had a mild flare up and used Cipro. Patient still have her 1 refill left. Patient denies any nausea or vomiting. Patient reports that she is constipated sometimes and does not move her bowels completely every day. Patient can continue taking Colace and I will of Senokot to take every day. Patient was encouraged to increase fluid intake. Patient will follow-up with our office in 6 months, sooner on as needed basis. Patient is agreeable to this plan and verbalizes understanding of instructions. She was given the opportunity to ask questions and all questions answered. Thank you for allowing me to participate in her care Medications: New sennosides (Natural Senna Laxative) 8.6 mg PO BEDTIME 90 tabs 3RF constipation K59.00 - Constipation, unspecified Coding Level of Care Code Est Pt Level 3 (32024) Diagnoses Diverticulosis K57.90 Irritable bowel syndrome with both constipation and diarrhea K58.2 Irritable bowel syndrome type: with both diarrhea and constipation Time Spent (min) 30 Comment 20 minutes spent with patient and additional 10 minutes spent reviewing her records
[2023-06-15 09:24] VITALS: BP 114/52; PULSE 64; BMI 26.4
== END 2023-06-15 09:49 | disposition home or self-care (01) ==
PROVIDERS: PCP Internal Medicine; Visit Provider Nurse Practitioner Family
DX: K57.90 Diverticulosis of intestine, part unspecified, without perforation or abscess without bleeding (principal); K58.2 Mixed irritable bowel syndrome
CPT/HCPCS: 99213

== ENCOUNTER → 2023-06-15 09:18 | Outpatient (BNVA) | payer MEDICARE, SELFPAY | PROVIDERS: PCP Internal Medicine; Visit Provider Nurse Practitioner Family | DX: K57.30 Diverticulosis of large intestine without perforation or abscess without bleeding (principal); K58.2 Mixed irritable bowel syndrome; Z79.899 Other long term (current) drug therapy | CPT/HCPCS: 99212 ==

== ENCOUNTER 2023-06-17 09:04 | Outpatient (AMB) | payer MEDICARE, SELFPAY ==
--- NOTE | 2023-06-17 09:11 | MHC.OFFVIS ---
Intake Vital Signs 06/17/23 09:12 Height 5 ft 3 in Weight 149 lb BMI 26.4 BP 130/64 Blood Pressure Location Lt brachial Position Sitting Pulse 61 Pulse Source Pulse Oximeter Pulse Oximetry (%) 99 Oxygen Delivery Method Room Air Intake Visit Reasons: copd Intake Note: pt is here for follow up and feeling good. 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 Allergies magnesium Allergy (Intermediate, Verified 06/17/23 09:19) upset stomach Medication List - Last Reconciled 06/17/23 by Trang James MD albuterol sulfate 90 mcg/actuation (ProAir HFA) 2 puffs inhalation Q6H PRN 30 days ciprofloxacin HCl 500 mg PO BID cyclosporine 0.05% (Restasis) 1 drp ophthalmic (eye) Q12H docusate sodium 100 mg PO BEDTIME enalapril-hydrochlorothiazide 5-12.5 mg 1 tab PO DAILY multivitamin 1 tab PO DAILY rosuvastatin 5 mg PO DAILY sennosides (Natural Senna Laxative) 8.6 mg PO BEDTIME Symbicort 160-4.5 mcg/actuation (budesonide-formoterol) 2 puffs PO BID NS Do you need a note to return to daycare/school/sports/work: No HPI copd HPI Details This 77 years old very pleasant female a long-time patient of mine, comes after 6 months for follow-up. Breathing rodriguez has remained very stable. She uses Symbicort 2 puffs actually only once a day and has not needed the 2nd time. Has had no . Respiratory infections Remains very active, and denies any excessive shortness of breath on walking around. [facility] Medical History Diverticulosis Essential hypertension Tubular adenoma History of diverticulitis Osteopenia Screening for diabetes mellitus COPD (chronic obstructive pulmonary disease) Surgical History History of colonoscopy History of partial hysterectomy History of hip replacement History of appendectomy Family History Father No problems noted. Mother No problems noted. Social History Housing: House Are you a primary acute care assistant to a significant other at home: No Do you presently have visiting nurse or other home services: No Alcohol intake: current Alcohol intake frequency: 0-2 drinks per day Patient Tobacco Use Status: Former Tobacco user Quit Date: Tobacco use type: Cigarette e-Cigarette/Vaping Use: Never Used Second Hand Smoke Exposure: No service: No Current occupational status: retired Cognitive needs: No Hearing needs: No Vision needs: Yes (contact) Review of Systems Const All systems reviewed & are unremarkable except as noted in HPI and below Eyes Reports no additional complaints ENT Reports no additional complaints and Reports other (Occasional self-limiting bleeding from the left nostril, during winter) Card Denies chest pain, Denies irregular heart rhythm and Denies leg edema Resp Reports as per HPI GI Reports no additional complaints and Reports heartburn (CONTROLLED WITH OMEPRAZOLE) Reports no additional complaints Musc Reports no additional complaints Skin/Breast Reports system reviewed and no additional complaints, except as documented Neuro Reports no additional complaints Psych Reports no additional complaints Physical Exam Vital Signs: Last Vital Signs Pulse 61 06/17/23 09:12 BP 130/64 06/17/23 09:12 Pulse Ox 99 06/17/23 09:12 Oxygen Delivery Method Room Air 06/17/23 09:12 BMI result Body Mass Index 26.4 Const General: healthy appearing, comfortable, no acute distress, alert and awake Orientation/consciousness: patient oriented x3 HEENT Head: Yes normal to inspection General nose exam: No nasal polyps present, No nasal discharge present and Other nasal findings present (No active bleeding spot noted at this time) Face and sinus: Yes sinuses nontender Mouth: oropharynx normal Throat: Yes posterior oropharynx normal Eyes General: appearance normal, both eyes and all related structures Neck Neck: Yes normal visual inspection, Yes no lymphadenopathy, Yes trachea midline and Yes no JVD Thyroid: Thyroid normal Chest Chest palpation & inspection: normal inspection of the chest, normal palpation of entire chest wall and no tenderness Resp Other: Percussion note resonant, breath sounds are normal, slightly prolonged expiratory phase. No wheezes or rhonchi are heard. Cardio Palpation: normal PMI Rate: regular rate Rhythm: regular rhythm Heart sounds: no gallops and no murmurs Peripheral pulses: Peripheral pulses 2+ throughout GI Palpation (GI): Soft to palpation, nontender, No hepatosplenomegaly present and no masses Auscultation: normal bowel sounds Back/Spine/Pelvis Thoracic/Lumbar Spine: thoracic and lumbar spine normal to inspection Skin General skin exam: no rashes or lesions noted Neuro General: patient oriented x3 and no focal motor deficits Cranial nerves: Yes CN's II-XII intact bilaterally Extrem General: Yes normal to inspection, Yes no calf tenderness and Yes edema (Only trace of pitting edema around the ankles) Psych Appearance: grossly normal and well kempt Speech and movement: Normal speech and movement present Office Procedures Spirometry Testing Spirometry Comments: Spirometry done in the office, Dr. James has the results results scanned to her chart. 80802- Spirometry Results Reviewed Results Reviewed: SPIROMETRY FVC FEV1 FEF 25-75 06/17/21 76 % 69 % 51 % 06/17/23 76 % 72 % 60 % Assessment & Plan Assessment & Plan (1) COPD (chronic obstructive pulmonary disease): Comment: HAS CHRONIC OBSTRUCTIVE PULMONARY DISEASE, MODERATELY SEVERE, AND IT HAS REMAINED VERY STABLE OVER THE PAST FEW YEARS. SHE WILL CONTINUE SYMBICORT 160-4.52 PUFFS B.I.D., AND WHEN SHE IS STABLE SHE MAY USE IT ONLY ONCE A DAY. PROAIR 2 PUFFS Q 4-6 HOURS ONLY P.R.N.. OK TO BE SEEN ONCE A YEAR AND NEEDED Code(s): J44.9 - Chronic obstructive pulmonary disease, unspecified Orders: Orders AMB Spirometry Testing Today J44.9 - Chronic obstructive pulmonary disease, unspecified Coding Level of Care Code Est Pt Level 3 (38930) Diagnoses COPD (chronic obstructive pulmonary disease) J44.9 CPT Codes Spirometry - CPT: 03841- Spirometry ([id number])
[2023-06-17 09:12] VITALS: BP 130/64; PULSE 61; O2SAT 99; BMI 26.4
== END 2023-06-17 09:43 | disposition home or self-care (01) ==
PROVIDERS: PCP Internal Medicine; Visit Provider Internal Medicine
DX: J44.9 Chronic obstructive pulmonary disease, unspecified (principal)
CPT/HCPCS: 94010; 99213

== ENCOUNTER → 2023-06-17 09:04 | Outpatient (BNVA) | payer MEDICARE, SELFPAY | PROVIDERS: PCP Internal Medicine; Visit Provider Internal Medicine | DX: J44.9 Chronic obstructive pulmonary disease, unspecified (principal) | CPT/HCPCS: 94010; 99212 ==

== ENCOUNTER 2023-06-30 09:00 | Outpatient (RCR) | payer MEDICARE, SELFPAY ==
--- NOTE | 2023-06-01 17:15 | MHC.PT.EP ---
[facility] [place] Office [place] Office [place] Office [address] Chrissy Mahmood [address] [phone] F: [phone] F: [phone] F: [phone] F: [phone] Physical Therapy Plan of Care Date of Evaluation: Date of Surgery: N/A Diagnosis: Pain in right hip Right hip pain Assessment: Pt is a pleasant and motivated 77yo F who presents to PT with RLE pain since mid March. She presents to PT with current impairments in pain, decreased ROM, soft tissue restrictions, decreased hip/glute strength, decreased quad strength, and impaired gait. 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 She is an excellent candidate for skilled PT in order to address current impairments to facilitate return to PLOF. She is recommended to be seen 2x/week for 4 weeks and will be reassessed at that time. Frequency and Duration: The patient will be seen 2x/week for 4 weeks Short Term Goals: Pt will be I with HEP to promote self management of symptoms Pt will improve R glute med strength to at least 4-/5 Long-Term Goals: Pt will tolerate standing and walking > 1 hour with minimal to no discomfort Pt will ascend/descend 1 flight of stairs with reciprocal pattern with minimal to no discomfort Pt will demonstrate improvements in function as evidenced by statistically significant improvement in LEFI outcome measure Treatment Plan: Modalities to reduce pain, spasms and effusion. Manual therapy to restore motion and function. Therapeutic exercise to improve strength and flexibility. Neuromuscular re-education for posture and balance. Therapeutic activities to return to functional activities of daily living. Electronically signed by: Enedelia Stevens, PT, DPT Please sign and return to therapist. Thank you for your referral.
--- NOTE | 2023-07-16 15:50 | MHC.PT.DC ---
[facility] [place] Office [place] Office [place] Office [address] Chrissy Mahmood [address] [phone] F: [phone] F: [phone] F: [phone] F: [phone] Physical Therapy Discharge Report Diagnosis: Pain in right hip Right hip pain Date of Surgery: N/A Date of Evaluation: 06/01/23 Date of Discharge: 07/16/23 Treatments to Date: 9 Cancellations to Date: No Shows to Date: Discharge Status: Achieved Goals Improved Function Independent with HEP Discharge Summary: Pt was seen for PT from 06/01/23-06/30/23. Her last attended and scheduled appointment was 06/30/23. She made excellent progress since SOC. She consistently had minimal to no discomfort. She improved strength and mobility. She demonstrated independence with HEP. She was D/C to HEP at last attended session Electronically signed by: Enedelia Stevens, PT, DPT Please sign and return to therapist. Thank you for your referral.
== END 2023-07-16 15:50 | disposition home or self-care (01) ==
LOC: HO.PT 09:00
PROVIDERS: PCP Internal Medicine; Visit Provider Internal Medicine
DX: M25.551 Pain in right hip (principal)
CPT/HCPCS: 97110; 97112; 97161; 97530

== ENCOUNTER 2023-08-05 07:57 | Outpatient (REF) | payer MEDICARE, SELFPAY | END 2023-08-05 07:58 | disposition home or self-care (01) | LOC: HO.MAMMO 07:57 | PROVIDERS: PCP Internal Medicine; Visit Provider Internal Medicine | DX: Z12.31 Encounter for screening mammogram for malignant neoplasm of breast (principal) | CPT/HCPCS: 77063; 77067 ==

== ENCOUNTER → 2023-08-05 08:15 | Outpatient (BNV) | payer MEDICARE, SELFPAY | PROVIDERS: PCP Internal Medicine; Visit Provider Radiology Diagnostic Radiology | DX: Z12.31 Encounter for screening mammogram for malignant neoplasm of breast (principal) | CPT/HCPCS: 77063; 77067 ==

== ENCOUNTER 2023-08-27 15:05 | Emergency (ER) | payer MEDICARE, SELFPAY ==
--- NOTE | ~2023-08-27 | CT_ITS ---
EXAMINATION: CT ABDOMEN AND PELVIS WITH CONTRAST CLINICAL INFORMATION: Left-sided tenderness COMPARISON: CT abdomen pelvis 11/19/2022 TECHNIQUE: Multidetector volumetric images were obtained from the superior aspect of the liver through the pubic symphysis following administration 85 mL of Omnipaque 350 intravenous contrast. Sagittal and coronal reformatted images were obtained on the technologist's workstation. Oral contrast: No This CT examination was performed using dose optimization techniques as appropriate, variously including the following: *Automated exposure control *Adjustment of mA and/or kV according to patient size (this includes techniques or standardized protocols for targeted exams where dose is matched to indication/reason for exam; i.e. extremities or head) *Use of iterative reconstruction technique DLP: 589 mGy-cm FINDINGS: LUNG BASES: The lung bases are clear. The heart size is normal. LIVER, GALLBLADDER, AND BILIARY TREE: The liver is normal in size, shape, and attenuation. No focal hepatic lesion or biliary ductal dilatation is present. The gallbladder is unremarkable with no evidence of radiopaque gallstones, gallbladder wall thickening, or obvious pericholecystic inflammatory changes. PANCREAS: Unremarkable. SPLEEN: Unremarkable. ADRENAL GLANDS: Unremarkable. KIDNEYS AND URETERS: The kidneys are normal in size, shape, and attenuation. No hydronephrosis, hydroureter, or calculi seen. No perinephric stranding. BLADDER: Unremarkable. GASTROINTESTINAL TRACT: There is diffuse mural thickening involving transverse, descending colon suggestive of colitis. There are few scattered articular protocol most prominent in the sigmoid region but no suspicion for diverticulitis. There is scattered stool in the right colon there is mild mural thickening involving distal duodenum and proximal jejunal loops question enteritis.. Appendix is not visualized with certainty ABDOMINAL WALL: There are prominent bilateral inguinal canals containing fat. LYMPH NODES: Normal. VASCULAR: Unremarkable. PELVIC VISCERA: Unremarkable. OSSEOUS STRUCTURES: There is mild degenerative disc changes L3-L4 12 foot-5 disc levels with vacuum disc phenomena L4-L5 disc. There is mild ventral and posterior spondylosis at these disc levels. Moderate ventral spondylosis is seen in the lower dorsal spine. CT/CT abdomen pelvis w IV con IMPRESSION: 1. Diffuse mural thickening transverse and descending colon suggestive of colitis. Focal mural thickening involving distal duodenum and proximal jejunum question enteritis. 2. Scattered sigmoid diverticulosis without diverticulitis. 3. Prominent bilateral inguinal canals containing fat. Fleischner guidelines were followed.
[2023-08-27 15:53] VITALS: BP 146/76; PULSE 82; RESP 20; TEMP 36.8; O2SAT 89; BMI 26.2
--- NOTE | 2023-08-27 15:55 | ED.GENADULT ---
HPI - General Adult General Chief complaint: Abdominal Pain Stated complaint: seeking abdominal scan, sent from Time Seen by Provider: 08/27/23 16:57 Source: patient and RN notes reviewed Mode of arrival: ambulatory Limitations: no limitations History of Present Illness HPI narrative: 77-year-old female past medical history significant for hypertension, asthma, IBS, diverticulitis presents for evaluation of abdominal pain and diarrhea Patient reports that she developed left lower abdominal pain last night. She had 4 or 5 episodes of diarrhea earlier this afternoon with some bright red blood mixed in She states that her left-sided abdominal pain is intermittent and usually when she has to help bowel movement Currently she does not have any abdominal pain She is not on any anticoagulation She follows with GI locally with Luisa Lindsey Patient denies any fevers, chills Related Data Home Medications Medication Instructions Recorded Confirmed multivitamin 1 tab PO DAILY 07/29/21 04/28/23 cyclosporine 0.05 % eye drops in a 1 drp ophthalmic (eye) Q12H 12/15/22 04/28/23 dropperette (Restasis) Previous Rx's Medication Instructions Recorded docusate sodium 100 mg capsule 100 mg PO BEDTIME #90 caps 11/09/22 albuterol sulfate 90 mcg/actuation 2 puff inhalation Q6H PRN 12/15/22 aerosol inhaler (ProAir HFA) Shortness Of Breath 30 days #8.5 grams ciprofloxacin HCl 500 mg tablet 500 mg PO BID #14 tabs 03/18/23 Symbicort 160 mcg-4.5 2 puff PO BID #10.2 ea 05/04/23 mcg/actuation HFA aerosol inhaler (budesonide-formoterol) rosuvastatin 5 mg tablet 5 mg PO DAILY #90 tabs 05/21/23 sennosides 8.6 mg tablet (Natural 8.6 mg PO BEDTIME constipation #90 06/15/23 Senna Laxative) tabs enalapril 5 mg-hydrochlorothiazide 1 tab PO DAILY #90 tabs 07/28/23 12.5 mg tablet levofloxacin 750 mg tablet 750 mg PO DAILY #10 tabs 08/27/23 metronidazole 500 mg tablet 500 mg PO TID #30 tabs 08/27/23 ondansetron 4 mg disintegrating 4 mg PO Q8H PRN nausea and 08/27/23 tablet vomiting #20 tabs Allergies Allergy/AdvReac Type Severity Reaction Status Date / Time magnesium Allergy Intermediate upset Verified 08/27/23 15:57 stomach Review of Systems Constitutional: Constitutional: Denies chills, Denies fever(s) and Denies headache(s) ENT: Denies headache(s) and Denies sore throat Cardiovascular: Cardiovascular: Denies chest pain and Denies dyspnea Respiratory: Respiratory: Denies chest congestion, Denies cough and Denies dyspnea Gastrointestinal: Gastrointestinal: Reports abdominal pain, Reports hematochezia, Reports diarrhea, Denies nausea and Denies vomiting Genitourinary: Genitourinary: Denies difficulty voiding Musculoskeletal: Musculoskeletal: Denies back pain Integumentary/Breasts: Skin/Breast: Denies rash Neurologic: Denies headache(s) [facility]LY [facility] Past Medical History Medical History Diverticulosis Essential hypertension Tubular adenoma History of diverticulitis Osteopenia Screening for diabetes mellitus COPD (chronic obstructive pulmonary disease) Surgical History History of colonoscopy History of partial hysterectomy History of hip replacement History of appendectomy Family History Family History Father No problems noted. Mother No problems noted. Social History Housing: House Are you a primary school childcare attendant to a significant other at home: No Do you presently have visiting nurse or other home services: No Alcohol intake: current Alcohol intake frequency: 0-2 drinks per day Patient Tobacco Use Status: Former Tobacco user Quit Date: Tobacco use type: Cigarette Smoked in Last 30 Days: No e-Cigarette/Vaping Use: Never Used Second Hand Smoke Exposure: No Use of substances other than those prescribed or required for medical reasons: No Advance Directives: No Advance Directives Information Provided: No service: No Current occupational status: retired Cognitive needs: No Hearing needs: No Vision needs: Yes (contact) Physical Exam ED Vital Signs: Vital Signs - 24 hr 08/27/23 15:53 08/27/23 16:55 08/27/23 18:52 Temperature 98.2 F 98.1 F Pulse Rate 82 82 70 Respiratory Rate 20 20 18 Blood Pressure 146/76 H 139/69 145/58 H Pulse Oximetry 89 L 97 97 Oxygen Delivery Method Room Air Room Air Room Air 08/27/23 19:53 Temperature 98.3 F Pulse Rate Respiratory Rate 16 Blood Pressure 153/79 H Pulse Oximetry Oxygen Delivery Method Room Air BMI result Body Mass Index 26.2 Const General: healthy appearing, comfortable, no acute distress, alert and awake Nutritional Appearance: well nourished Orientation/consciousness: patient oriented x3 HENMT Head: Yes normocephalic and Yes atraumatic Eyes Eyelids: Yes eyelids normal Conjunctivae: conjunctivae normal Sclerae: sclerae normal Corneas: corneas normal Pupils: Equal, round and reactive pupils present EOM: EOMs intact bilaterally Neck Neck: Yes full ROM Resp Effort & Inspection: normal respiratory effort, able to speak in complete sentences, no audible wheezes and not labored Auscultation: clear to auscultation bilaterally Cardio Rate: regular rate Rhythm: regular rhythm GI Inspection: No distended Palpation (GI): Soft to palpation, not firm, Tenderness to palpation present (GI) in the LLQ; with no rebound tenderness, no guarding and not rigid Auscultation: normoactive bowel sounds Skin General skin exam: elasticity normal Neuro General: patient oriented x3 Cranial nerves: Yes Equal, round and reactive pupils present and Yes Bilaterally intact EOM present Cognition (Neuro): normal cognition Extrem Other: Moving all extremities well without any obvious deformities Course Course Course Narrative: This is a rapid medical exam: Additional HPI, ROS, PE not included below will be deferred to primary provider. Patient is a 77-year-old female with history of diverticulosis/itis, HTN, COPD, osteopenia presenting to the emergency department with complaint of nausea, vomiting, and diarrhea which began in the middle of the night. This morning she noted bright red blood in her diarrhea and also developed intermittent LLQ abdominal pain. Denies any dysuria, frequency or other urinary symptoms. Denies back or flank pain. Denies fevers. LUQ and LLQ tenderness on exam. Plan: labs, UA, CT abd/pelvis Reevaluation(s) Reevaluation #1: Patient's CT scan shows uncomplicated colitis. Discussed this with the patient. All questions were answered, she is stable for discharge Time: 20:20 Medications Administered Discontinued Medications Generic Name Dose Route Start Last Admin Trade Name Kristopher PRN Reason Stop Dose Admin Iohexol 100 ml 08/27/23 18:36 08/27/23 18:36 Iohexol 350 Mg/Ml 100 Ml Infus..Btl IV 08/27/23 18:37 85 ml ONCE ONE Administration Medical Decision Making Medical Decision Making [facility] Narrative: 77-year-old female presents for evaluation of left-sided abdominal pain with some intermittent bloody diarrhea. She is tender on exam without rebound or guarding, abdomen is nondistended. History exam is most consistent with acute diverticulitis the patient has a history of this. Patient's labs are significant for a leukocytosis of 13.8. Her hemoglobin hematocrit are within normal limits and actually slightly above her most recent labs. Chemistries without any acute significant findings. Plan for CT scan of the abdomen pelvis. Differential Diagnosis Differential Diagnoses: The differential diagnosis associated with the presentation includes Acute diverticulitis Colitis IBS Diverticular abscess less likely Hemorrhoid IBD Admission/Observation Consideration of admission/observation: Escalation of care including admission/observation considered Patient has infectious process of the abdomen, however her pain is well controlled, she is able tolerate p.o. and will therefore be discharged Lab Data [facility] Lab Attestation statement: I reviewed the patient's lab results. Slight leukocytosis to 13 point AK. No anemia. BUN is just above normal at 21 with a normal creatinine of 1.01. 08/27/23 16:51 08/27/23 16:51 Labs: Lab Results 08/27/23 08/27/23 Range/Units 16:51 17:28 WBC 13.8 H (4.8-10.8) X10*3/uL RBC 4.73 (4.20-5.50) X10*6/uL Hgb 14.6 (12.0-16.0) g/dl Hct 44.3 (37.0-47.0) % MCV 93.7 (80.0-98.0) fL MCH 30.9 (27.0-33.0) pg MCHC 33.0 (31.0-35.0) g/dl RDW 12.5 (11.0-16.0) % Plt Count 212 (160-400) X10*3/uL MPV 9.8 (9.4-12.3) fL Immature Gran % (Auto) 0.4 (0.0-0.4) % Neut % (Auto) 72.6 (45-73) % Lymph % (Auto) 17.8 L (20-40) % [place] % (Auto) 8.3 (2-11) % Eos % (Auto) 0.6 (0-4) % Baso % (Auto) 0.3 (0-2) % Lymph # (Auto) 2.5 (1.2-4.9) X10*3/uL [place] # (Auto) 1.1 (0.1-1.2) X10*3/uL Eos # (Auto) 0.1 (0.0-0.4) X10*3/uL Baso # (Auto) 0.0 (0.0-0.2) X10*3/uL Abs Immat Gran (auto) 0.05 H (0.00-0.03) X10*3/uL Absolute Neuts (auto) 10.0 H (2.0-8.3) x10*3/uL Absolute Nucleated RBC 0.000 (0.0-0.012) X10*3/uL Nucleated RBC % (auto) 0.0 (0.0-0.2) /100WBC Sodium 140 (135-145) mmol/L Potassium 3.9 (3.3-5.1) mmol/L Chloride 102 (96-108) mmol/L Carbon Dioxide 26 (22-29) mmol/L Anion Gap 16 (12-20) BUN 21 H (9-16) mg/dL Creatinine 1.01 (0.5-1.4) mg/dL Estim Creat Clear Calc 42.9 Estimated GFR 53 Random Glucose 105 (60-115) mg/dL Calcium 9.7 (8.4-10.2) mg/dL Total Bilirubin 1.5 H (0.0-1.0) mg/dL AST 22 (5-31) U/L ALT 20 (0-31) U/L Alkaline Phosphatase 72 (39-117) U/L Total Protein 7.8 (6.5-8.0) g/dL Albumin 4.6 (3.5-5.0) g/dL Urine Color Dark Yellow Urine Appearance Clear Urine pH 5.5 (5.0-9.0) Ur Specific [place] >= 1.030 H (1.005-1.025) Urine Protein Negative (Neg-Trace) mg/dL Urine Glucose (UA) Negative (Negative) mg/dL Urine Ketones Negative (Negative) mg/dL Urine Blood Negative (Negative) Urine Nitrite Negative (Negative) Ur Leukocyte Esterase Trace H (Negative) Urine RBC 6-10 H (0-2) /HPF Urine WBC 6-10 H (0-5) /HPF Ur Squamous Epith Cells 0-2 (0-2) /HPF Urine Bacteria None Seen (None Seen) Hyaline Casts 3-5 (0-2) /LPF Independent Interpretation I performed an independent interpretation of an: CT Scan (Colitis without evidence of abscess) Radiology Impression Discussion of test interpretation with radiology: I have reviewed the radiologist's reading. Radiologist Impression: Diffuse mural thickening the transverse and descending colon suggestive of colitis. Focal mural thickening involving distal duodenum and proximal jejunum question enteritis. Discharge Plan Discharge Clinical Impression: Colitis Patient Disposition: Home, Self-Care Instructions: Colitis (ED) Additional Instructions: Your CT scan shows that you have acute colitis. Take both antibiotics as prescribed You may use Zofran for nausea and or vomiting Follow-up with your primary doctor Return for new or worsening symptoms, especially to evaluate fever or severe, intractable pain Prescriptions: New levofloxacin 750 mg tablet 750 mg PO DAILY Qty: 10 0RF metronidazole 500 mg tablet 500 mg PO TID Qty: 30 0RF ondansetron 4 mg tablet,disintegrating 4 mg PO Q8H PRN (Reason: nausea and vomiting) Qty: 20 0RF No Action ciprofloxacin HCl 500 mg tablet 500 mg PO BID Qty: 14 1RF budesonide-formoterol [Symbicort] 160-4.5 mcg/actuation HFA aerosol inhaler 2 puff PO BID Qty: 10.2 3RF rosuvastatin 5 mg tablet 5 mg PO DAILY Qty: 90 0RF enalapril-hydrochlorothiazide 5-12.5 mg tablet 1 tab PO DAILY Qty: 90 1RF multivitamin Tablet 1 tab PO DAILY sennosides [Natural Senna Laxative] 8.6 mg tablet 8.6 mg PO BEDTIME Qty: 90 3RF cyclosporine [Restasis] 0.05 % dropperette 1 drp ophthalmic (eye) Q12H albuterol sulfate [ProAir HFA] 90 mcg/actuation HFA aerosol inhaler 2 puff inhalation Q6H PRN (Reason: Shortness Of Breath) 30 Days Qty: 8.5 3RF docusate sodium 100 mg capsule 100 mg PO BEDTIME Qty: 90 4RF
[2023-08-27 16:54] LABS: MANUAL DIFF FLAG NO
[2023-08-27 16:55] VITALS: BP 139/69; PULSE 82; RESP 20; TEMP 36.7; O2SAT 97
[2023-08-27 16:56] LABS: Basophils Percent Auto 0.3 % (0-2); Eosinophils Absolute Auto 0.1 X10*3/uL (0.0-0.4); Eosinophils Percent Auto 0.6 % (0-4); Hematocrit 44.3 % (37.0-47.0); Hemoglobin 14.6 g/dl (12.0-16.0); Imm Gran Abs Auto 0.05 X10*3/uL (0.00-0.03); Imm Gran Pct Auto 0.4 % (0.0-0.4); Lymphocytes Absolute Auto 2.5 X10*3/uL (1.2-4.9); Lymphocytes Percent Auto 17.8 % (20-40); Mean Corpuscular Hemoglobin 30.9 pg (27.0-33.0); Mean Corpuscular Volume 93.7 fL (80.0-98.0); Mean Platelet Volume 9.8 fL (9.4-12.3); Monocytes Absolute Auto 1.1 X10*3/uL (0.1-1.2); Monocytes Percent Auto 8.3 % (2-11); Neutrophils Percent Auto 72.6 % (45-73); Platelet Count 212 X10*3/uL (160-400); Red Blood Count 4.73 X10*6/uL (4.20-5.50); Red Cell Distribution Width 12.5 % (11.0-16.0); White Blood Count 13.8 X10*3/uL (4.8-10.8)
[2023-08-27 17:09] LABS: Alanine Aminotransferase 20 U/L (0-31); Albumin Level 4.6 g/dL (3.5-5.0); Alkaline Phosphatase 72 U/L (39-117); Anion Gap 16 (12-20); Aspartate Amino Transferase 22 U/L (5-31); Bilirubin Total 1.5 mg/dL (0.0-1.0); Blood Urea Nitrogen 21 mg/dL (9-16); Calcium 9.7 mg/dL (8.4-10.2); Carbon Dioxide 26 mmol/L (22-29); Chloride 102 mmol/L (96-108); Creatinine Clr Calc Pharmacy 42.9; Estimated Glomerular Filt Rate 53; Glucose Random 105 mg/dL (60-115); Potassium 3.9 mmol/L (3.3-5.1); Sodium 140 mmol/L (135-145); Total Protein 7.8 g/dL (6.5-8.0)
--- NOTE | 2023-08-27 17:14 | PC.NURSE ---
pt A/O X3, reports having lower abd pain since last night, multiple episodes of diarrhea through the night. pain with BM. pain with palpation to lower abd. denies vomiting. no urinary sx. hx of diverticulitis.
[2023-08-27 17:40] LABS: Appearance Urine Clear; Color Urine Dark Yellow; Glucose Urine UA Negative (Negative); Leukocyte Esterase Urine Trace (Negative); Nitrite Urine Negative (Negative); PH 5.5 (5.0-9.0); Specific Gravity - Urine >= 1.030 (1.005-1.025); UMIC TRIGGER UACC YES; Urine Blood Negative (Negative); Urine Ketones Negative (Negative); Urine Protein Negative (Neg-Trace)
[2023-08-27 18:14] LABS: Bacteria Urine None Seen (None Seen); Squamous Epithelial Cell Urine 0-2 /HPF (0-2); UACC Culture Trigger YES
[2023-08-27] MEDS: iohexoL 350 MG/ML 100 ML INFUS..BTL IV (18:36)
[2023-08-27 18:52] VITALS: BP 145/58; PULSE 70; RESP 18; O2SAT 97
[2023-08-27 19:53] VITALS: BP 153/79; RESP 16; TEMP 36.8
[2023-08-27] MEDS: metroNIDAZOLE 500 MG TABLET PO (20:35)
[2023-08-27] MEDS: levoFLOXacin 750 MG TABLET PO (20:35)
[2023-08-27] MEDS: oxyCODONE HCl Immed Release 5 MG TABLET PO (20:35)
[2023-08-27] MEDS: Ondansetron ODT 4 MG TAB.RAPDIS TRANSLINGU (20:35)
== END 2023-08-27 20:41 | disposition home or self-care (01) ==
PROVIDERS: Registered Nurse Emergency; Emergency Provider Emergency Medicine Emergency Medical Services; PCP Internal Medicine
DX: K52.9 Noninfective gastroenteritis and colitis, unspecified (principal); I10 Essential (primary) hypertension; R11.2 Nausea with vomiting, unspecified; Z79.899 Other long term (current) drug therapy
CPT/HCPCS: 36415; 74177; 80053; 81001; 85025; 87086; 99284; Q9967

== ENCOUNTER 2023-09-02 11:48 | Outpatient (REF) | payer MEDICARE, SELFPAY ==
[2023-09-02 13:07] LABS: C Reactive Protein 1.22 mg/dL (< or = 0.50)
== END 2023-09-02 11:49 | disposition home or self-care (01) ==
LOC: HO.LAB 11:48
PROVIDERS: PCP Internal Medicine; Visit Provider Nurse Practitioner Family
DX: K58.9 Irritable bowel syndrome, unspecified (principal)
CPT/HCPCS: 36415; 86140

== ENCOUNTER 2023-09-03 12:22 | Outpatient (REF) | payer MEDICARE, SELFPAY ==
[2023-09-08 23:24] LABS: Calprotectin, Fecal 729 mcg/g
== END 2023-09-03 12:23 | disposition home or self-care (01) ==
LOC: HO.LNP 12:22
PROVIDERS: Visit Provider Nurse Practitioner Family
DX: R15.9 Full incontinence of feces (principal)
CPT/HCPCS: 83993

== ENCOUNTER 2023-09-06 09:16 | Outpatient (AMB) | payer MEDICARE, SELFPAY ==
[2023-09-06 09:17] VITALS: BP 112/64; PULSE 67; O2SAT 98; BMI 26.2
--- NOTE | 2023-09-06 09:17 | AM.OFFVISMDC ---
Intake Vital Signs 09/06/23 09:17 Height 5 ft 3 in Weight 148 lb BMI 26.2 BP 112/64 Blood Pressure Location Lt brachial Position Sitting Pulse 67 Pulse Source Pulse Oximeter Pulse Oximetry (%) 98 Oxygen Delivery Method Room Air Intake Visit Reasons: [employer] Manager Required: No Allergies magnesium Allergy (Intermediate, Verified 09/06/23 09:18) upset stomach HPI HPI Comments History of Present Illness Details Patient is a 77-year-old female who presents today for initial wellness visit. Patient of Dr. Hagan. Patient was in ER on 08/27/23 for Diverticulitis Flare, which has progressed to colitis, on levaquin and metronidazole.Patient reports symptoms have improved Following with GI. Today we discussed patient's need for tetanus vaccine, patient would like to hold off. Patient due from Bone denisty, order entered Patient is up-to-date with all other health preventative screenings. [place] of care was reviewed with the patient and she was provided with a written screening schedule. Patient has a MOLST form on file and reports has HCP at home will bring in copy to be scanned into chart. [facility] Medical History Diverticulosis Essential hypertension Tubular adenoma History of diverticulitis Osteopenia Screening for diabetes mellitus COPD (chronic obstructive pulmonary disease) Surgical History History of colonoscopy History of partial hysterectomy History of hip replacement History of appendectomy Family History Father No problems noted. Mother No problems noted. Social History Housing: House Are you a primary progressive care unit registered nurse to a significant other at home: No Do you presently have visiting nurse or other home services: No Alcohol intake: current Alcohol intake frequency: 0-2 drinks per day Patient Tobacco Use Status: Former Tobacco user Quit Date: Tobacco use type: Cigarette e-Cigarette/Vaping Use: Never Used Second Hand Smoke Exposure: No service: No Current occupational status: retired Cognitive needs: No Hearing needs: No Vision needs: Yes (contact) Questionnaire Medicare Wellness Checkup [age] What gender do you identify with?: female During the past 4 weeks, how much have you been bothered by emotional problems such as feeling anxious, depressed, irritable, sad or downhearted, and blue?: slightly During the past 4 weeks, has your physical & emotional health limited your social activities with family, friends, neighbors, or groups?: not at all During the past 4 weeks, how much bodily pain have you generally had?: mild pain During the past 4 weeks, was someone available to help you if you needed & wanted help?: yes, as much as I wanted During the past 4 weeks, what was the hardest physical activity you could do for at least 2 minutes?: heavy Can you get to places out of walking distance without help? (For eg., can you travel alone on buses, taxis or drive your car?): Yes Can you go shopping for groceries or clothes without someone's help?: Yes Can you prepare your own meals?: Yes Can you do your housework without help?: Yes Because of any health problems, do you need the help of another person with your personal care needs such as eating, bathing, dressing or getting around the house?: No Can you handle your own money without help?: Yes During the past 4 weeks, how would you rate your health in general?: very good During the past 4 weeks how have things been going for you?: very well; could hardly better Are you having difficulties driving your car?: no Do you always fasten your seat belt when you are in a car?: yes, usually During past 4 weeks, have you been bothered by the following: never: Falling or dizzy when standing up, Sexual problems?, Trouble eating well?, Teeth or denture problems? and Problems using the telephone? and seldom: Tiredness or fatigue? Have you fallen 2 or more times in the past year?: No Are you afraid of falling?: No Are you a smoker?: no During the past 4 weeks, how many drinks of wine, beer, or other alcoholic beverages did you have?: 6-9 drinks per week Do you exercise for about 20 minutes 3 or more times a week?: yes, most of the time Have you been given information to help with the following?: no: Hazards in your house that might hurt you? and no: Keeping track of your medications? How often do you have trouble taking medicines the way you have been told to take them?: I always take medicine as prescribed How confident are you that you can control & manage most of your health problems?: very confident What is your race?: White Mini Mental State Exam (MMSE) Orientation What is the (year) (season) (date) (day) (month)?: year, season, date, day and month Score Score: 5 Activity of Daily Living Bathing - sponge bath, tub bath or shower: receives no assistance (gets in/out by self, if usual bathing means Dressing - getting clothes from closets & drawers, including inner/outer garments & fasteners.: gets clothes & gets completely dressed without help Toileting - going to the 'toilet room' for urine/bowel elimination & cleaning self/arranging clothes: goes to toilet room, cleans self, arranges clothes without help Transfer: moves in & out of bed and chair without help (may use support object) Continence: controls urination/bowel movements completely by self Feeding: feeds self without help Total Score: 0 Information obtained from: patient Using telephone: independent Traveling: independent Shopping: independent Preparing meals: independent Housework: independent Taking medicine: independent Managing money: independent PHQ-9 Over the last 2 weeks, how often have you been bothered by any of the following problems? 1. Little interest or pleasure in doing things: not at all 2. Feeling down, depressed, or hopeless: not at all 3. Trouble falling or staying asleep, or sleeping too much: not at all 4. Feeling tired or having little energy: not at all 5. Poor appetite or overeating: not at all 6. Feeling bad about yourself - or that you are a failure or have let yourself or your family down: not at all 7. Trouble concentrating on things, such as reading the newspaper or watching television: not at all 8. Moving or speaking so slowly that other people could have noticed. Or the opposite - being so fidgety or restless that you have been moving around a lot more than usual: not at all 9. Thoughts that you would be better off or of hurting yourself in some way: not at all Total score: 0 Depression Screening Interpretation: Negative Depression Screening Done: Yes 63269 - PHQ-9 Billing: Yes Source: Developed by Drs. Dm Medina, Sabrina Lora, Junito Iyer and colleagues, with an educational janessa from [employer]. ABDIRASHID-7 AMB Questionnaire ABDIRASHID-7 Date ABDIRASHID - 7 assessed: 09/06/23 Feeling nervous, anxious, or on edge: 0 = Not at all Not being able to stop or control worryin = Several days Worrying too much about different things: 0 = Not at all Trouble relaxin = Not at all Being so restless that it is hard to sit still: 0 = Not at all Becoming easily annoyed or irritable: 0 = Not at all Feeling afraid as if something awful might happen: 0 = Not at all Total ABDIRASHID-7 score (0-4 normal; 5-9 mild; 10-14 moderate; 15-21 severe): 1 Source: Developed by Drs. Dm Medina, Sabrina Lora, Junito Iyer and colleagues, with an educational janessa from [employer]. ABDIRASHID-7 Assessment Billing ABDIRASHID-7 Assessment Tool: ABDIRASHID-7 Assessment 36328 Physical Exam Vital Signs: Last Vital Signs Pulse 67 09/06/23 09:17 BP 112/64 09/06/23 09:17 Pulse Ox 98 09/06/23 09:17 Oxygen Delivery Method Room Air 09/06/23 09:17 BMI result Body Mass Index 26.2 Const General: cooperative and no acute distress Orientation/consciousness: patient oriented x3 HEENT Ears: other (whisper test: pass) Neuro General: patient oriented x3 Gait exam (Neuro): Normal gait present Coordination: tandem gait normal and Romberg test negative Assessment & Plan Assessment & Plan (1) Osteopenia: Code(s): M85.80 - Other specified disorders of bone density and structure, unspecified site Plan: Bone Density ordered. (2) Medicare annual wellness visit, subsequent: Code(s): Z00.00 - Encounter for general adult medical examination without abnormal findings Plan: Follow up in 1 year Plan Keep scheduled follow up in October or follow up sooner if needed. Orders: Orders XR DEXA axial skeleton Today M85.80 - Other specified disorders of bone density and structure, unspecified site Quality Reporting (2019) Depression/Bipolar (159/160/161/177) PHQ-9: Total score: 0 Coding Level of Care Code Medicare Subsequent (G0439) Diagnoses Osteopenia M85.80 Medicare annual wellness visit, subsequent Z00.00 CPT Codes Advance Care Planning - Time spent: 1-15 minutes, not on file ([id number]) Additional Codes ABDIRASHID-7 Assessment Billing - ABDIRASHID-7 Assessment Tool: ABDIRASHID-7 Assessment 07645 ([id number]) Advance Care Planning Advance Care Planning discussion: Exists, not on file Date of discussion: 09/06/23 Who was present: Patient Forms completed: Health Care Proxy and MOLST Time spent: 1-15 minutes, not on file Actual minutes spent: 1 Did not discuss due to Cultural/Spiritual beliefs: No
== END 2023-09-06 09:51 | disposition home or self-care (01) ==
PROVIDERS: PCP Internal Medicine; Visit Provider Nurse Practitioner Family
DX: Z00.00 Encounter for general adult medical examination without abnormal findings (principal); M85.80 Other specified disorders of bone density and structure, unspecified site
CPT/HCPCS: 1124F; G0439

== ENCOUNTER 2023-10-08 08:40 | Outpatient (REF) | payer MEDICARE, SELFPAY | END 2023-10-08 08:41 | disposition home or self-care (01) | LOC: HO.MAMMO 08:40 | PROVIDERS: PCP Internal Medicine; Visit Provider Nurse Practitioner Family | DX: Z13.820 Encounter for screening for osteoporosis (principal); M85.80 Other specified disorders of bone density and structure, unspecified site; Z78.0 Asymptomatic menopausal state | CPT/HCPCS: 77080 ==

== ENCOUNTER 2023-10-22 08:45 | Outpatient (REF) | payer MEDICARE, SELFPAY ==
[2023-10-22 09:38] LABS: Blood Urea Nitrogen 23 mg/dL (9-16); Estimated Glomerular Filt Rate > 60
== END 2023-10-22 08:46 | disposition home or self-care (01) ==
LOC: HO.LAB 08:45
PROVIDERS: PCP Internal Medicine; Visit Provider Nurse Practitioner Family
DX: R10.11 Right upper quadrant pain (principal)
CPT/HCPCS: 36415; 82565; 84520

== ENCOUNTER 2023-10-25 10:34 | Outpatient (REF) | payer MEDICARE, SELFPAY ==
[2023-10-25 12:05] LABS: CDiff Gene PCR NEGATIVE (Negative)
== END 2023-10-25 10:35 | disposition home or self-care (01) ==
LOC: HO.LNP 10:34
PROVIDERS: Visit Provider Nurse Practitioner Family
DX: R19.7 Diarrhea, unspecified (principal)
CPT/HCPCS: 87493

== ENCOUNTER 2023-10-28 13:52 | Outpatient (AMB) | payer MEDICARE, SELFPAY ==
--- NOTE | 2023-10-28 13:55 | MHC.PC.OV ---
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 Required: No Auto Clocks Repairer: Not Required per policy Accompanied by: Self / Same As Patient Allergies magnesium Allergy (Intermediate, Verified 10/28/23 14:27) upset stomach Medication List - Last Reconciled 10/28/23 by Ryan Hagan MD albuterol sulfate 90 mcg/actuation (ProAir HFA) 2 puffs inhalation Q6H PRN 30 days cyclosporine 0.05% (Restasis) 1 drp ophthalmic (eye) Q12H docusate sodium 100 mg PO BEDTIME enalapril-hydrochlorothiazide 5-12.5 mg 1 tab PO DAILY levofloxacin 750 mg PO DAILY multivitamin 1 tab PO DAILY rosuvastatin 5 mg PO DAILY sennosides (Natural Senna Laxative) 8.6 mg PO BEDTIME Symbicort 160-4.5 mcg/actuation (budesonide-formoterol) 2 puffs inhalation BID NS Tobacco use date assessed: 10/28/23 Fall risk assessment: No Falls in past year Last assessed Fall Risk: 10/28/23 Dental Screening Dental Screen Date: 10/28/23 Did you have a dental visit in the last 12 months?: Yes Did you have a dental problem in the last 6 months where you did not have access to dental care?: No Was dental information given to patient?: Patient has dentist HPI 6mth f/u HPI Details 77-year-old female presents to the office to discuss her chronic medical conditions. Since last office visit, patient was diagnosed with colitis/diverticulitis. With antibiotics she is recovered. A CT scan has been ordered by semiconductor testing group leader and that is still pending. She is able to tolerate regular diet and is having normal bowel movements. No symptoms of cramping or pain. Recently had a bone mineral density test done. She would like to know the results. Patient gives no history of fractures. Is also complaining of numbness in the thumb, index and middle finger of the right hand. At times the symptoms include pain. Loss of function as dropping paper has been noted at times. Patient continues to do all activities of daily living. COUNTS INCLUDE 234 BEDS AT THE [facility] Medical History (Updated 10/28/23 @ 14:33 by Ryan Hagan MD) Peripheral neuropathy Diverticulosis Essential hypertension Tubular adenoma History of diverticulitis Osteopenia Screening for diabetes mellitus COPD (chronic obstructive pulmonary disease) Surgical History History of colonoscopy History of partial hysterectomy History of hip replacement History of appendectomy Family History Father No problems noted. Mother No problems noted. Social History Housing: House Are you a primary healthcare educator to a significant other at home: No Do you presently have visiting nurse or other home services: No Alcohol intake: current Alcohol intake frequency: 0-2 drinks per day Patient Tobacco Use Status: Former Tobacco user Quit Date: Tobacco use type: Cigarette e-Cigarette/Vaping Use: Never Used Second Hand Smoke Exposure: No service: No Current occupational status: retired Cognitive needs: No Hearing needs: No Vision needs: Yes (contact) Questionnaire PHQ-9 Over the last 2 weeks, how often have you been bothered by any of the following problems? 1. Little interest or pleasure in doing things: not at all 2. Feeling down, depressed, or hopeless: not at all 3. Trouble falling or staying asleep, or sleeping too much: not at all 4. Feeling tired or having little energy: not at all 5. Poor appetite or overeating: not at all 6. Feeling bad about yourself - or that you are a failure or have let yourself or your family down: not at all 7. Trouble concentrating on things, such as reading the newspaper or watching television: not at all 8. Moving or speaking so slowly that other people could have noticed. Or the opposite - being so fidgety or restless that you have been moving around a lot more than usual: not at all 9. Thoughts that you would be better off or of hurting yourself in some way: not at all Total score: 0 Depression Screening Interpretation: Negative Depression Screening Done: Yes Source: Developed by Drs. Dm Medina, Junito Adkins and colleagues, with an educational janessa from [employer]. Thrive Questionnaire Date Thrive assessed: 10/28/23 I am a: Patient What is your living situation today?: I have a steady place to live Within the past 12 months, did the food you bought not last and you didn't have the money to get more?: Never true Within the past 12 months, did you worry whether your food would run out before you got money to buy more?: Never true Do you have trouble paying for medicines?: No Do you have trouble getting transportation to medical appointments?: No Do you have trouble paying your heating and electricity bill?: No Do you have trouble taking care of your child, family member or friend?: No Do you have trouble with day-to-day activities such as bathing, preparing meals, shopping, managing finances, etc.?: No Are you currently unemployed and looking for a job?: No Are you interested in more education?: No Currently or been in a relationship where the following occur: no concerns reported THRIVE Score: 0 AUDIT C Alcohol Use Questionnaire (AUDIT-C) 1. How often do you have a drink containing alcohol?: 4 or more times a week 2. How many drinks containing alcohol do you have on a typical day when you are drinking?: 1 or 2 Total Score: 4 ABDIRASHID-7 AMB Questionnaire ABDIRASHID-7 Date ABDIRASHID - 7 assessed: 10/28/23 Feeling nervous, anxious, or on edge: 0 = Not at all Not being able to stop or control worryin = Not at all Worrying too much about different things: 0 = Not at all Trouble relaxin = Not at all Being so restless that it is hard to sit still: 0 = Not at all Becoming easily annoyed or irritable: 0 = Not at all Feeling afraid as if something awful might happen: 0 = Not at all Total ABDIRASHID-7 score (0-4 normal; 5-9 mild; 10-14 moderate; 15-21 severe): 0 Source: Developed by Drs. Dm Medina, Junito Adkins and colleagues, with an educational janessa from [employer]. Physical exam (Primary Care) Vital Signs: Last Vital Signs Pulse 80 10/28/23 13:57 BP 100/60 10/28/23 13:57 Pulse Ox 96 10/28/23 13:57 Oxygen Delivery Method Room Air 10/28/23 13:57 Care Plan Goal for BP management: Blood pressure is in range. Continue medications at same dosage. BMI result Body Mass Index 26.9 Tobacco/Smoking Status: Tobacco use Status Tobacco use date assessed 10/28/23 10/28/23 14:03 Patient Tobacco Use Status Former Tobacco user 10/28/23 14:03 Tobacco use type Cigarette 10/28/23 14:03 e-Cigarette/Vaping Use Never Used 10/28/23 14:03 PHQ-9: PHQ-9 Score PHQ-9: Total score 0 10/28/23 14:03 Depression Screening Interpretation: Negative Thrive Assessment: Date of Thrive Assessment Date Thrive assessed 10/28/23 10/28/23 14:03 Currently or been in a relationship where the following occur: no concerns reported Advance Care Planning discussion: Exists, not on file Date of discussion: 10/28/23 Who was present: Patient Forms completed: Health Care Proxy Time spent: 1-15 minutes, not on file Actual minutes spent: 5 Const General: cooperative and healthy appearing Nutritional Appearance: well nourished Orientation/consciousness: patient oriented x3 Limitations: no limitations HENMT Head: Yes normal to inspection Eyes General: appearance normal, both eyes and all related structures Neck Neck: Yes normal visual inspection Chest Chest palpation & inspection: normal palpation of entire chest wall Resp Effort & Inspection: normal respiratory effort Neuro General: patient oriented x3 Assessment and Plan Assessment & Plan (1) Osteopenia: Code(s): M85.80 - Other specified disorders of bone density and structure, unspecified site Plan: BMD discussed with patient. She has osteopenia. No medication needed. Encouraged exercise and calcium in the diet. (2) COPD (chronic obstructive pulmonary disease): Comment: HAS CHRONIC OBSTRUCTIVE PULMONARY DISEASE, MODERATELY SEVERE, AND IT HAS REMAINED VERY STABLE OVER THE PAST FEW YEARS. SHE WILL CONTINUE SYMBICORT 160-4.52 PUFFS B.I.D., AND WHEN SHE IS STABLE SHE MAY USE IT ONLY ONCE A DAY. PROAIR 2 PUFFS Q 4-6 HOURS ONLY P.R.N.. Code(s): J44.9 - Chronic obstructive pulmonary disease, unspecified (3) Diverticulosis: Code(s): K57.90 - Diverticulosis of intestine, part unspecified, without perforation or abscess without bleeding Plan: Condition is stable. Get CT of the abdomen as ordered. (4) Essential hypertension: Code(s): I10 - Essential (primary) hypertension (5) Peripheral neuropathy: Code(s): G62.9 - Polyneuropathy, unspecified Plan: Symptoms are more prominent in the right hand. Currently no medication is needed. Patient was advised to increase her vitamin B12 intake. Coding Level of Care Code Est Pt Level 4 (35638) Diagnoses Osteopenia M85.80 COPD (chronic obstructive pulmonary disease) J44.9 Diverticulosis K57.90 Essential hypertension I10 Peripheral neuropathy G62.9 Additional Codes Vital Signs *Quality* - Advance Care Planning discussion: Exists, not on file ([id number]) Vital Signs *Quality* - Time spent: 1-15 minutes, not on file ([id number])
[2023-10-28 13:57] VITALS: BP 100/60; PULSE 80; O2SAT 96; BMI 26.9
== END 2023-10-28 14:23 | disposition home or self-care (01) ==
PROVIDERS: PCP Internal Medicine; Visit Provider Internal Medicine
DX: M85.80 Other specified disorders of bone density and structure, unspecified site (principal); J44.9 Chronic obstructive pulmonary disease, unspecified; K57.90 Diverticulosis of intestine, part unspecified, without perforation or abscess without bleeding; I10 Essential (primary) hypertension; G62.9 Polyneuropathy, unspecified; Z00.00 Encounter for general adult medical examination without abnormal findings
CPT/HCPCS: 1123F; 1124F; 99214

== ENCOUNTER 2023-11-30 08:10 | Outpatient (REF) | payer MEDICARE, SELFPAY ==
--- NOTE | ~2023-11-30 | CT_ITS ---
EXAMINATION: CT ENTEROGRAPHY ABDOMEN AND PELVIS WITH CONTRAST CLINICAL INFORMATION: Colitis and questionable enteritis on prior CT. Diverticulosis. COMPARISON: CT abdomen/pelvis 08/27/2023. TECHNIQUE: Study performed with oral VoLumen (1350 mL) and 480 mL of water to distend the abdomen. The patient was injected with 85 mL Omnipaque 350 intravenous contrast which was administered without adverse effect. Coronal and sagittal reformatted images were obtained at the technologist's workstation. This CT examination was performed using dose optimization techniques as appropriate, variously including the following: *Automated exposure control *Adjustment of mA and/or kV according to patient size (this includes techniques or standardized protocols for targeted exams where dose is matched to indication/reason for exam; i.e. extremities or head) *Use of iterative reconstruction technique DLP: 579 mGy-cm FINDINGS: GASTROINTESTINAL FINDINGS: Stomach: Significant gastric distention. No associated hyperemia or wall thickening. Small intestine: Mild hyperemia of the terminal ileum (4:44). Otherwise, no significant wall thickening or inflammatory changes. No findings to suspect penetrating disease or fistula. Large intestine: Severe colonic diverticulosis. No significant pericolonic inflammatory changes. No evidence of bowel obstruction. ABDOMINAL AND PELVIC CT FINDINGS: Liver, gallbladder, biliary tract: Liver is normal in size, morphology and attenuation. No liver lesions. Normal gallbladder. No biliary ductal dilatation. Pancreas: Unremarkable. Spleen: Unremarkable. Adrenal glands and kidneys: Unremarkable. Bladder: Not well seen, decompressed and partially obscured by streak artifacts from bilateral hip arthroplasties. Pelvis: Not well seen, partially obscured by streak artifacts from bilateral hip arthroplasties. Lymphovascular structures: No lymphadenopathy. Bones: Partially seen total bilateral hip arthroplasties. No acute or aggressive-appearing osseous findings. Degenerative changes of the spine. Lung bases: A few pulmonary nodules measuring up to 0.6 cm are not significantly changed, for instance 0.6 cm nodule in the right lower lobe (8:50) which is reassuring and for which no imaging follow-up is recommended. Additional findings: Small fat-containing right inguinal hernia. CT/CT enterography IMPRESSION: 1. Minimal hyperemia of the terminal ileum, otherwise no significant abnormality in the small bowel. 2. Severe colonic diverticulosis without significant pericolonic inflammatory changes to suspect acute diverticulitis. No bowel obstruction. 3. Nonspecific significant gastric distention out of proportion for the degree of distention of the small bowel, differentials considerations include inadequate timing of oral contrast, gastroparesis or gastric outlet obstruction, correlate clinically.
[2023-11-30] MEDS: Sorbitol/Mannit/Xanth Imaging 500 ML LIQUID 1500 ML PO (09:45)
[2023-11-30] MEDS: iohexoL 350 MG/ML 100 ML INFUS..BTL 85 ML IV (09:45)
[2023-12-01 08:23] LABS: Creatinine POC 0.8 mg/dL (0.5-1.4); GFR POC > 60
== END 2023-11-30 08:11 | disposition home or self-care (01) ==
LOC: HO.CT 08:10
PROVIDERS: PCP Internal Medicine; Visit Provider Nurse Practitioner Family
DX: K57.90 Diverticulosis of intestine, part unspecified, without perforation or abscess without bleeding (principal)
CPT/HCPCS: 74177; 82565; Q9967

== ENCOUNTER 2023-12-06 11:47 | Outpatient (REF) | payer MEDICARE, SELFPAY ==
[2023-12-07 07:55] LABS: HBc Num1 0.14 S/CO (0.00-0.79); HBsAGNum1 0.29 S/CO (0.00-0.99); Hepatitis B Core Antibody Nonreactive (Nonreactive); Hepatitis B Surface Antigen Negative (Negative); ~HepC Num1 0.26 S/CO (0.00-0.79); ~Hepatitis A Antibody IgM Nonreactive (Nonreactive); ~Hepatitis B Surface Antibody NONREACTIVE (Nonreactive); ~Hepatitis C Antibody Nonreactive (Nonreactive)
[2023-12-09 00:33] LABS: TS Negative Control Passed; TS Panel A 0; TS Panel B 0; TS Positive Control Passed; TSpotTB Negative (Negative)
== END 2023-12-06 11:48 | disposition home or self-care (01) ==
LOC: HO.LAB 11:47
PROVIDERS: Visit Provider Nurse Practitioner Family
DX: Z11.1 Encounter for screening for respiratory tuberculosis (principal); R79.89 Other specified abnormal findings of blood chemistry; K52.9 Noninfective gastroenteritis and colitis, unspecified
CPT/HCPCS: 36415; 86481; 86704; 86706; 86709; 86803; 87340

== ENCOUNTER 2023-12-14 09:28 | Outpatient (AMB) | payer MEDICARE, SELFPAY ==
[2023-12-14 09:46] VITALS: BP 136/63; PULSE 77; BMI 26.7
--- NOTE | 2023-12-14 09:46 | MHC.OFFVIS ---
Intake Vital Signs 12/14/23 09:46 Height 5 ft 3 in Weight 151 lb BMI 26.7 BP 136/63 Blood Pressure Location Rt brachial Position Sitting Pulse 77 Pulse Source Pulse Oximeter Intake Visit Reasons: 6 month follow up Intake Note: Pt presents to the office today for a 6 month follow up. She states she had an issue with vomiting and bleeding from her rectum the day after 2022 and ended up in the hospital and the ER stated that it could be colitis. She states she has not had an issues since that day. She denies any N/V/D. She does state she gets constipated every so often. Allergies magnesium Allergy (Intermediate, Verified 12/14/23 09:47) upset stomach HPI 6 month follow up HPI Details LAST VISIT Diverticulosis Irritable bowel syndrome Plan Patient had severe diverticulosis of sigmoid colon. Recently patient had a mild flare up and used Cipro. Patient still have her 1 refill left. Patient denies any nausea or vomiting. Patient reports that she is constipated sometimes and does not move her bowels completely every day. Patient can continue taking Colace and I will of Senokot to take every day. Patient was encouraged to increase fluid intake. Patient will follow-up with our office in 6 months, sooner on as needed basis. Patient is agreeable to this plan and verbalizes understanding of instructions. She was given the opportunity to ask questions and all questions answered. ? Thank you for allowing me to participate in her care Medications New sennosides (Natural Senna Laxative) 8.6 mg PO BEDTIME 90 tabs 3RF constipation K59.00 TODAY'S VISIT: Patient is here today for follow-up. Since the last time I have seen her patient had 1 episode of colitis when she went to ER and was sent home with antibiotics. CT scan showed: Diffuse mural thickening the transverse and descending colon suggestive of colitis. Focal mural thickening involving distal duodenum and proximal jejunum question enteritis . Upon reviewing CT scan with involvement in small-bowel has prompted me to order some more blood work to investigate possible Crohn's. Patient does have a frequent recurrent diverticulitis/colitis, takes Cipro when she has symptoms. Patient had colonoscopy in 2021, no suspicion for colitis. Severe diverticulosis in sigmoid and descending colon, with narrowing in the sigmoid colon. Patient was instructed to take a stool softener daily as well as MiraLax. Back in September I have order fecal calprotectin and CRP which they both were elevated. Laboratory Tests 09/02/23 09/03/23 12:13 09:02 C-Reactive Protein 1.22 H Stool Calprotectin 729 H Patient was sent for enterography and now is going in couple weeks for CT colonography. ENTEROGRAPHY TO 04/22/2024 IMPRESSION: 1. Minimal hyperemia of the terminal ileum, otherwise no significant abnormality in the small bowel. 2. Severe colonic diverticulosis without significant pericolonic inflammatory changes to suspect acute diverticulitis. No bowel obstruction. 3. Nonspecific significant gastric distention out of proportion for the degree of distention of the small bowel, differentials considerations include inadequate timing of oral contrast, gastroparesis or gastric outlet obstruction, correlate clinically. Patient reports that since last time she was in the ER she has been feeling well. Patient states that she moves her bowels without any issues for the most part. Patient is trying to stay hydrated. Avoiding certain food. Patient is making sure that she is emptying her bowels daily. Patient denies melena, hematochezia, unintentional weight loss or ribbon like stools. Patient denies any dyspepsia, dysphagia or odynophagia. FORMERLY [facility], [facility] Medical History (Updated 12/14/23 @ 19:49 by Luisa Lindsey [facility]) Abnormal inflammatory bowel disease panel Peripheral neuropathy Diverticulosis Essential hypertension Tubular adenoma History of diverticulitis Osteopenia Screening for diabetes mellitus COPD (chronic obstructive pulmonary disease) Surgical History History of colonoscopy History of partial hysterectomy History of hip replacement History of appendectomy Family History Father No problems noted. Mother No problems noted. Social History Housing: House Are you a primary chronic care nurse to a significant other at home: No Do you presently have visiting nurse or other home services: No Alcohol intake: current Alcohol intake frequency: 0-2 drinks per day Patient Tobacco Use Status: Former Tobacco user Quit Date: Tobacco use type: Cigarette e-Cigarette/Vaping Use: Never Used Second Hand Smoke Exposure: No service: No Current occupational status: retired Cognitive needs: No Hearing needs: No Vision needs: Yes (contact) Review of Systems Const Denies weight gain and Denies weight loss ENT Reports no additional complaints, Denies dysphagia and Denies odynophagia Card Reports no additional complaints Resp Reports no additional complaints GI Denies abdominal pain, Denies belching, Denies melena, Denies bloating, Denies change in bowel habits, Reports constipation (Occasional), Denies dysphagia, Denies excessive flatus, Denies dyspepsia, Denies heartburn, Denies diarrhea, Denies loose stools, Denies nausea, Denies odynophagia and Denies vomiting Reports no additional complaints Musc Reports no additional complaints Neuro Reports no additional complaints Psych Reports no additional complaints Endo Reports no additional complaints Physical Exam Vital Signs: Last Vital Signs Pulse 77 12/14/23 09:46 BP 136/63 12/14/23 09:46 BMI result Body Mass Index 26.7 Const General: healthy appearing, no acute distress and well developed Nutritional Appearance: well nourished Orientation/consciousness: patient oriented x3 Resp Effort & Inspection: normal respiratory effort, able to speak in complete sentences, no tracheal deviation and symmetric chest movement Auscultation: clear to auscultation bilaterally Cardio Rate: regular rate GI Inspection: Yes normal to inspection and No distended Palpation (GI): Soft to palpation, not firm, nontender and No hepatosplenomegaly present Auscultation: normal bowel sounds General: Yes no CVA tenderness Back/Spine/Pelvis Back: no CVA tenderness Skin General skin exam: elasticity normal, turgor normal and dry skin Neuro General: patient oriented x3 Psych Appearance: grossly normal Mental Status: mental status grossly normal Assessment & Plan Assessment & Plan (1) Diverticulosis: Code(s): K57.90 - Diverticulosis of intestine, part unspecified, without perforation or abscess without bleeding (2) Irritable bowel syndrome: Code(s): K58.9 - Irritable bowel syndrome without diarrhea Qualifiers: Irritable bowel syndrome type: with both diarrhea and constipation Qualified Code(s): K58.2 - Mixed irritable bowel syndrome (3) Abnormal inflammatory bowel disease panel: Code(s): R85.7 - Abnormal histological findings in specimens from digestive organs and abdominal cavity (4) Constipation: Code(s): K59.00 - Constipation, unspecified Qualifiers: Constipation type: outlet dysfunction constipation Qualified Code(s): K59.02 - Outlet dysfunction constipation (5) Stricture of sigmoid colon: Code(s): K56.699 - Other intestinal obstruction unspecified as to partial versus complete obstruction (6) Sigmoid thickening: Code(s): K63.9 - Disease of intestine, unspecified Plan Awaiting colonography reports. Continue Colace once or twice a day. Patient has severe narrowing of the sigmoid colon which could cause outlet obstruction and most likely is contributing to her constipation. Patient was encouraged to increase fluid intake and activity to promote better bowel motility. Patient can take probiotic. Hyperemia of the terminal ileum found on enterography, most likely Crohn's, will do prometheus study however patient had positive CRP and fairly high fecal calprotectin. Test was done about 1 week or so after she was seen in the ER, unlikely false-positive as the results were too high. TB and hepatitis panel done. We will take medication depending on what the results are. Depending on results from colonography patient might need to go for bowel resection for severe diverticulosis and if the narrowing is significant which we will discussed with patient next visit (we have not discussed this part yet as patient has not done for colonography yet). Patient will return in 6 weeks, sooner on as needed basis. Patient is agreeable to this plan and verbalizes understanding of instructions. She was given the opportunity to ask questions and all questions answered. Thank you for allowing me to participate in her care Orders: Orders Prometheus IBD SGI Today R10.9 - Unspecified abdominal pain Medications: Discontinued sennosides (Natural Senna Laxative) Discontinued Reason: Patient no longer taking 8.6 mg PO BEDTIME 90 tabs 3RF constipation K59.00 - Constipation, unspecified polyethylene glycol 3350 (Miralax) As directed by gastroenterology department at [facility] Discontinued Reason: Patient no longer taking 238 grams PO ONCE 238 grams 0RF Z12.11 - Encounter for screening for malignant neoplasm of colon bisacodyl (Dulcolax (bisacodyl)) take 2 tabs at noon the day before your colonoscopy Discontinued Reason: Patient no longer taking 10 mg (2 x 5 mg) PO ONCE 1 day 2 tabs 0RF Z12.11 - Encounter for screening for malignant neoplasm of colon Coding Level of Care Code Est Pt Level 5 (31881) Diagnoses Diverticulosis K57.90 Irritable bowel syndrome with both constipation and diarrhea K58.2 Irritable bowel syndrome type: with both diarrhea and constipation Abnormal inflammatory bowel disease panel R85.7 Constipation due to outlet dysfunction K59.02 Constipation type: outlet dysfunction constipation Stricture of sigmoid colon K56.699 Sigmoid thickening K63.9 Time Spent (min) 40 Comment 25 minutes spent with patient and additional 15 minutes spent reviewing her records
== END 2023-12-14 10:41 | disposition home or self-care (01) ==
PROVIDERS: PCP Internal Medicine; Visit Provider Nurse Practitioner Family
DX: K57.90 Diverticulosis of intestine, part unspecified, without perforation or abscess without bleeding (principal); K58.2 Mixed irritable bowel syndrome; R85.7 Abnormal histological findings in specimens from digestive organs and abdominal cavity; K56.699 Other intestinal obstruction unspecified as to partial versus complete obstruction
CPT/HCPCS: 99215

== ENCOUNTER 2023-12-14 09:28 | Outpatient (REF) | payer MEDICARE, SELFPAY | END 2023-12-14 09:29 | disposition home or self-care (01) | LOC: HO.LAB 09:28 | PROVIDERS: PCP Internal Medicine; Visit Provider Nurse Practitioner Family | DX: R10.9 Unspecified abdominal pain (principal); K57.90 Diverticulosis of intestine, part unspecified, without perforation or abscess without bleeding; K58.2 Mixed irritable bowel syndrome; R85.7 Abnormal histological findings in specimens from digestive organs and abdominal cavity; K59.02 Outlet dysfunction constipation; K56.699 Other intestinal obstruction unspecified as to partial versus complete obstruction; K63.9 Disease of intestine, unspecified | CPT/HCPCS: 36415; 81479; 82397; 83520; 86140; 88346; 88350; 99212 ==

== ENCOUNTER 2024-01-05 08:47 | Outpatient (REF) | payer MEDICARE, SELFPAY ==
--- NOTE | ~2024-01-05 | CT_ITS ---
EXAMINATION: CT COLONOGRAPHY CLINICAL INFORMATION: Diverticulosis COMPARISON: 11/30/2023 CT enterography TECHNIQUE: Bowel preparation: Excellent. Colonic distention: CO2 mechanical insufflator used via enema tube with excellent distention. Acquisition: Low dose imaging targeted to colonic was performed in the supine and prone positions. Procedure: The procedure was well tolerated. Review: The acquired images were reviewed in axial, coronal and sagittal planes. Additional 3-D fly through images were reviewed at an independent workstation. This CT examination was performed using dose optimization techniques as appropriate, variously including the following: *Automated exposure control *Adjustment of mA and/or kV according to patient size (this includes techniques or standardized protocols for targeted exams where dose is matched to indication/reason for exam; i.e. extremities or head) *Use of iterative reconstruction technique DLP: 354 mGy-cm FINDINGS: Colonic findings: Colon is redundant with extensive colonic diverticulosis more so in the sigmoid colon which remains relatively underdistended during the study. I do not appreciate any fixed colonic mass lesion or significant colonic polyp on the examination. No obvious colonic wall thickening or pericolonic inflammatory change Non-colonic findings: Extensive beam hardening artifact from the bilateral hip prostheses is again noted. Vascular calcification in the aorta iliac system. Incidental retroaortic left renal vein. Uterus is not visualized and presumably surgically absent although the areas obscured by beam hardening artifact from hip prostheses. Mild degenerative changes in the spine. CT/CT colonography IMPRESSION: Redundant colon with extensive colonic diverticulosis but no obvious fixed colonic mass lesion or significant colonic polyp on the examination.
== END 2024-01-05 08:48 | disposition home or self-care (01) ==
LOC: HO.CT 08:47
PROVIDERS: PCP Internal Medicine; Visit Provider Nurse Practitioner Family
DX: K57.90 Diverticulosis of intestine, part unspecified, without perforation or abscess without bleeding (principal); Z87.19 Personal history of other diseases of the digestive system
CPT/HCPCS: 74261

== ENCOUNTER 2024-01-31 08:53 | Outpatient (AMB) | payer MEDICARE, SELFPAY ==
--- NOTE | 2024-01-31 08:56 | A.OFFVIS_ITS ---
Vital Signs 01/31/24 09:04 Height 5 ft 3 in Weight 150 lb BMI 26.6 BP 125/59 L Blood Pressure Location Lt brachial Position Sitting Pulse 77 Intake Visit Reasons: 6 week follow up Diverticulosis Intake Note: Patient is seen in office for 6 weeks follow up visit, following diverticulitis. Pt c/o: had imaging done recently and denies any GI issues, no longer has constipation, nausea or bleeding Oncology Account Specialist Required: No Accompanied by: Self / Same As Patient Allergies magnesium Allergy (Intermediate, Verified 01/31/24 09:00) upset stomach HPI HPI 6 week follow up Diverticulosis: Details: LAST VISIT Diverticulosis Irritable bowel syndrome Abnormal inflammatory bowel disease panel Constipation Stricture of sigmoid colon Sigmoid thickening Plan Awaiting colonography reports. Continue Colace once or twice a day. Patient has severe narrowing of the sigmoid colon which could cause outlet obstruction and most likely is contributing to her constipation. Patient was encouraged to increase fluid intake and activity to promote better bowel motility. Patient can take probiotic. Hyperemia of the terminal ileum found on enterography, most likely Crohn's, will do prometheus study however patient had positive CRP and fairly high fecal calprotectin. Test was done about 1 week or so after she was seen in the ER, unlikely false-positive as the results were too high. TB and hepatitis panel done. We will take medication depending on what the results are. Depending on results from colonography patient might need to go for bowel resection for severe diverticulosis and if the narrowing is significant which we will discussed with patient next visit (we have not discussed this part yet as patient has not done for colonography yet). Patient will return in 6 weeks, sooner on as needed basis. Patient is agreeable to this plan and verbalizes understanding of instructions. She was given the opportunity to ask questions and all questions answered. ? Thank you for allowing me to participate in her care Orders Orders Prometheus IBD SGI Today R10.9 Medications Discontinued sennosides (Natural Senna Laxative) Discontinued Reason: Patient no longer taking 8.6 mg PO BEDTIME 90 tabs 3RF constipation K59.00 polyethylene glycol 3350 (Miralax) As directed by gastroenterology department at [facility] Discontinued Reason: Patient no longer taking 238 grams PO ONCE 238 grams 0RF Z12.11 bisacodyl (Dulcolax (bisacodyl)) take 2 tabs at noon the day before your colonoscopy Discontinued Reason: Patient no longer taking 10 mg (2 x 5 mg) PO ONCE 1 day 2 tabs 0RF Z12.11 TODAY'S VISIT Patient is here today for follow-up and to discuss lab results as well CT enterography and CT colonography results. No acute processes found on CT scan, however there is a question of Crohn's due to hyperemia of the terminal ileum. Colonography did not show any inflammation, thickening. Discussed her case with Dr. Franklin. Patient has had elevated stool calprotectin and CRP and even though Prometheus study concluded that is not IBD patient will be started on m esalamine. She had frequent episodes last 1 in August that did not involve sigmoid colon and it was most likely colitis in transverse colon. Currently patient reports that she has been feeling well. Moving her bowels without any issues. Denies dyspepsia, dysphagia or odynophagia [facility] Medical History Abnormal inflammatory bowel disease panel Peripheral neuropathy Diverticulosis Essential hypertension Tubular adenoma History of diverticulitis Osteopenia Screening for diabetes mellitus COPD (chronic obstructive pulmonary disease) Surgical History History of colonoscopy History of partial hysterectomy History of hip replacement History of appendectomy Family History Father No problems noted. Mother No problems noted. Social History Housing: House Are you a primary healthcare administration internship to a significant other at home: No Do you presently have visiting nurse or other home services: No Alcohol intake: current Alcohol intake frequency: 0-2 drinks per day Patient Tobacco Use Status: Former Tobacco user Quit Date: Tobacco use type: Cigarette e-Cigarette/Vaping Use: Never Used Second Hand Smoke Exposure: No service: No Current occupational status: retired Cognitive needs: No Hearing needs: No Vision needs: Yes (contact) Review of Systems Const Denies weight gain and Denies weight loss ENT Reports no additional complaints, Denies dysphagia and Denies odynophagia Card Reports no additional complaints Resp Reports no additional complaints GI Denies abdominal pain, Denies belching, Denies melena, Denies bloating, Denies change in bowel habits, Denies dysphagia, Denies excessive flatus, Denies dyspepsia, Denies heartburn, Denies diarrhea, Denies loose stools, Denies nause a, Denies odynophagia and Denies vomiting Musc Reports no additional complaints Neuro Reports no additional complaints Psych Reports no additional complaints Endo Reports no additional complaints Physical Exam Vital Signs: Last Vital Signs Pulse 77 01/31/24 09:04 BP 125/59 L 01/31/24 09:04 BMI result Body Mass Index 26.6 Const General: healthy appearing, no acute distress and well developed Nutritional Appearance: well nourished Orientation/consciousness: patient oriented x3 Resp Effort & Inspection: normal respiratory effort, able to speak in complete sentences, no tracheal deviation and symmetric chest movement Auscultation: clear to auscultation bilaterally Cardio Rate: regular rate GI Inspection: Yes normal to inspection and No distended Palpation (GI): Soft to palpation, not firm, nontender and No hepatosplenomegaly present Auscultation: normal bowel sounds General: Yes no CVA tenderness Back/Spine/Pelvis Back: no CVA tenderness Skin General skin exam: elasticity normal, turgor normal and dry skin Neuro General: patient oriented x3 Psych Appearance: grossly normal Mental Status: mental status grossly normal Results Reviewed Results Reviewed: CT ENTEROGRAPHY IMPRESSION: 1. Minimal hyperemia of the terminal ileum, otherwise no significant abnormality in the small bowel. 2. Severe colonic diverticulosis without significant pericolonic inflammatory changes to suspect acute diverticulitis. No bowel obstruction. 3. Nonspecific significant gastric distention out of proportion for the degree of distention of the small bowel, differentials considerations include inadequate timing of oral contrast, gastroparesis or gastric outlet obstruction, correlate clinically. COLONOGRAPHY FINDINGS: Colonic findings: Colon is redundant with extensive colonic diverticulosis more so in the sigmoid colon which remains relatively underdistended during the study. I do not appreciate any fixed colonic mass lesion or significant colonic polyp on the examination. No obvious colonic wall thickening or pericolonic inflammatory change Non-colonic findings: Extensive beam hardening artifact from the bilateral hip prostheses is again noted. Vascular calcification in the aorta iliac system. Incidental retroaortic left renal vein. Uterus is not visualized and presumably surgically absent although the areas obscured by beam hardening artifact from hip prostheses. Mild degenerative changes in the spine. Laboratory Tests 09/02/23 09/03/23 12/06/23 12:13 09:02 12:03 C-Reactive Protein 1.22 H Stool Calprotectin 729 H Hepatitis A IgM Ab Nonreactive Hep Bs Antigen Negative Hep Bs Antibody NONREACTIVE Hep B Core Total Ab Nonreactive Hepatitis C Ab (EIA) Nonreactive TB Test (T-Spot) Com Negative Assessment & Plan Assessment & Plan (1) Abnormal inflammatory bowel disease panel: Code(s): R85.7 - Abnormal histological findings in specimens from digestive organs and abdominal cavity Category: Medical (2) Diverticulosis: Code(s): K57.90 - Diverticulosis of intestine, part unspecified, without perforation or abscess without bleeding Category: Medical (3) Irritable bowel syndrome: Code(s): K58.9 - Irritable bowel syndrome without diarrhea Category: Medical Qualifiers: Irritable bowel syndrome type: with both diarrhea and constipation Qualified Code(s): K58.2 - Mixed irritable bowel syndrome (4) Constipation: Code(s): K59.00 - Constipation, unspecified Qualifiers: Constipation type: slow transit constipation Qualified Code(s): K59.01 - Slow transit constipation (5) Stricture of sigmoid colon: Code(s): K56.699 - Other intestinal obstruction unspecified as to partial versus complete obstruction (6) Sigmoid thickening: Code(s): K63.9 - Disease of intestine, unspecified Plan Continue current regimen for her bowels. Increase fluid intake and activity to promote better bowel motility. Patient will be started on Apriso daily. Patient will return in 5 weeks to re-evaluate. She will call our office if she will have any GI concerning symptoms. Medications: New mesalamine ER (Apriso) 1.5 grams (4 x 0.375 gram) PO QAM 120 caps 1RF R85.7 - Abnormal histological findings in specimens from digestive organs and abdominal cavity Coding Level of Care Code Est Pt Level 4 (83663) Diagnoses Abnormal inflammatory bowel disease panel R85.7 Diverticulosis K57.90 Irritable bowel syndrome with both constipation and diarrhea K58.2 Irritable bowel syndrome type: with both diarrhea and constipation Slow transit constipation K59.01 Constipation type: slow transit constipation Stricture of sigmoid colon K56.699 Sigmoid thickening K63.9 Time Spent (min) 40 Comment 25 minutes spent with patient and additional 15 minutes spent reviewing her records
[2024-01-31 09:04] VITALS: BP 125/59; PULSE 77; BMI 26.6
== END 2024-01-31 09:27 | disposition home or self-care (01) ==
PROVIDERS: PCP Internal Medicine; Visit Provider Nurse Practitioner Family
DX: R85.7 Abnormal histological findings in specimens from digestive organs and abdominal cavity (principal); K57.90 Diverticulosis of intestine, part unspecified, without perforation or abscess without bleeding; K58.2 Mixed irritable bowel syndrome; K59.01 Slow transit constipation; K56.699 Other intestinal obstruction unspecified as to partial versus complete obstruction; K63.9 Disease of intestine, unspecified
CPT/HCPCS: 99214

== ENCOUNTER → 2024-01-31 08:53 | Outpatient (BNVA) | payer MEDICARE, SELFPAY | PROVIDERS: PCP Internal Medicine; Visit Provider Nurse Practitioner Family | DX: K57.90 Diverticulosis of intestine, part unspecified, without perforation or abscess without bleeding (principal); R85.7 Abnormal histological findings in specimens from digestive organs and abdominal cavity; K58.2 Mixed irritable bowel syndrome; K59.01 Slow transit constipation; K56.699 Other intestinal obstruction unspecified as to partial versus complete obstruction | CPT/HCPCS: 99212 ==

== ENCOUNTER 2024-03-10 14:31 | Outpatient (AMB) | payer MEDICARE, SELFPAY ==
--- NOTE | 2024-03-10 14:34 | A.OFFVIS_ITS ---
Vital Signs 03/10/24 14:38 Height 5 ft 3 in Weight 148 lb BMI 26.2 BP 98/53 L Blood Pressure Location Lt brachial Position Sitting Pulse 69 Intake Visit Reasons: 5 week follow up Intake Note: Laura presents in the office as a 5 week follow up. CC: f/u to discuss her medication that she started last visit. Allergies magnesium Allergy (Intermediate, Verified 03/10/24 14:39) upset stomach HPI HPI 5 week follow up: Details: LAST VISIT: Abnormal inflammatory bowel disease panel Diverticulosis Irritable bowel syndrome Constipation Stricture of sigmoid colon Sigmoid thickening Plan Continue current regimen for her bowels. Increase fluid intake and activity to promote better bowel motility. Patient will be started on Apriso daily. Patient will return in 5 weeks to re-evaluate. She will call our office if she will have any GI concerning symptoms. Medications New mesalamine ER (Apriso) 1.5 grams (4 x 0.375 gram) PO QAM 120 caps 1RF R85.7 TODAY'S VISIT: Patient is here today for follow-up. Patient started mesalamine last visit and reports that she has been doing well. Patient denies any abdominal pain or discomfort. One episode of abdominal cramping that lasted for very short time without any diarrhea or severe cramping. Patient reports that she has been feeling well and would like to stay on this medication. Patient reports that she will be going for right knee surgery in the next month or so. Patient denies any melena, hematochezia. Denies any dyspepsia, dysphagia or odynophagia. Reports that she has been moving her bowels without any issues. [facility] Medical History Abnormal inflammatory bowel disease panel Peripheral neuropathy Diverticulosis Essential hypertension Tubular adenoma History of diverticulitis Osteopenia Screening for diabetes mellitus COPD (chronic obstructive pulmonary disease) Surgical History History of colonoscopy History of partial hysterectomy History of hip replacement History of appendectomy Family History Father No problems noted. Mother No problems noted. Social History Housing: House Are you a primary pet care worker to a significant other at home: No Do you presently have visiting nurse or other home services: No Alcohol intake: current Alcohol intake frequency: 0-2 drinks per day Patient Tobacco Use Status: Former Tobacco user Tobacco use type: Cigarette e-Cigarette/Vaping Use: Never Used Second Hand Smoke Exposure: No service: No Current occupational status: retired Cognitive needs: No Hearing needs: No Vision needs: Yes (contact) Review of Systems Const Denies weight gain and Denies weight loss ENT Reports no additional complaints, Denies dysphagia and Denies odynophagia Card Reports no additional complaints Resp Reports no additional complaints GI Denies abdominal pain, Denies belching, Denies melena, Denies bloating, Denies change in bowel habits, Denies dysphagia, Denies excessive flatus, Denies d yspepsia, Denies heartburn, Denies diarrhea, Denies loose stools, Denies nausea, Denies odynophagia and Denies vomiting Musc Reports no additional complaints Neuro Reports no additional complaints Psych Reports no additional complaints Endo Reports no additional complaints Physical Exam Vital Signs: Last Vital Signs Pulse 69 03/10/24 14:38 BP 98/53 L 03/10/24 14:38 BMI result Body Mass Index 26.2 Const General: healthy appearing, no acute distress and well developed Nutritional Appearance: well nourished Orientation/consciousness: patient oriented x3 Resp Effort & Inspection: normal respiratory effort, able to speak in complete sentences, no tracheal deviation and symmetric chest movement Auscultation: clear to auscultation bilaterally Cardio Rate: regular rate GI Inspection: Yes normal to inspection and No distended Palpation (GI): Soft to palpation, not firm, nontender and No hepatosplenomegaly present Auscultation: normal bowel sounds General: Yes no CVA tenderness Back/Spine/Pelvis Back: no CVA tenderness Skin General skin exam: elasticity normal, turgor normal and dry skin Neuro General: patient oriented x3 Psych Appearance: grossly normal Mental Status: mental status grossly normal Assessment & Plan Assessment & Plan (1) Abnormal inflammatory bowel disease panel: Code(s): R85.7 - Abnormal histological findings in specimens from digestive organs and abdominal cavity Category: Medical (2) Diverticulosis: Code(s): K57.90 - Diverticulosis of intestine, part unspecified, without perforation or abscess without bleeding Category: Medical (3) Irritable bowel syndrome: Code(s): K58.9 - Irritable bowel syndrome without diarrhea Category: Medical Qualifiers: Irritable bowel syndrome type: with both diarrhea and constipation Qualified Code(s): K58.2 - Mixed irritable bowel syndrome (4) Constipation: Code(s): K59.00 - Constipation, unspecified Qualifiers: Constipation type: slow transit constipation Qualified Code(s): K59.01 - Slow transit constipation (5) Stricture of sigmoid colon: Code(s): K56.699 - Other intestinal obstruction unspecified as to partial versus complete obstruction (6) Sigmoid thickening: Code(s): K63.9 - Disease of intestine, unspecified Plan Continue mesalamine. Increase fluid intake and activity to promote better bowel motility. May use [id number] MiraLax or stool softeners to help her with bowel movements. Avoid dietary triggers. Eat smaller meals and more often. Next visit we will check stool calprotectin to evaluate for effectiveness her treatment. Patient will return to the office in 6 months, sooner on as needed basis. She is agreeable to this plan and verbalizes understanding of instructions. She was given the opportunity to ask questions and all questions answered. Thank you for allowing me to participate in her care Medications: Refilled mesalamine ER (Apriso) 1.5 grams (4 x 0.375 gram) PO QAM 120 caps 5RF R85.7 - Abnormal histological findings in specimens from digestive organs and abdominal cavity Discontinued Symbicort 160-4.5 mcg/actuation (budesonide-formoterol) Discontinued Reason: Patient no longer taking 2 puffs inhalation BID 10.2 ea 3RF NS J44.9 - Chronic obstructive pulmonary disease, unspecified Coding Level of Care Code Est Pt Level 3 (62767) Diagnoses Abnormal inflammatory bowel disease panel R85.7 Diverticulosis K57.90 Irritable bowel syndrome with both constipation and diarrhea K58.2 Irritable bowel syndrome type: with both diarrhea and constipation Slow transit constipation K59.01 Constipation type: slow transit constipation Stricture of sigmoid colon K56.699 Sigmoid thickening K63.9 Time Spent (min) 25 Comment 15 minutes spent with patient and additional 10 minutes spent reviewing her records
[2024-03-10 14:38] VITALS: BP 98/53; PULSE 69; BMI 26.2
== END 2024-03-10 14:58 | disposition home or self-care (01) ==
PROVIDERS: PCP Internal Medicine; Visit Provider Nurse Practitioner Family
DX: R85.7 Abnormal histological findings in specimens from digestive organs and abdominal cavity (principal); K57.90 Diverticulosis of intestine, part unspecified, without perforation or abscess without bleeding; K58.2 Mixed irritable bowel syndrome; K59.01 Slow transit constipation; K56.699 Other intestinal obstruction unspecified as to partial versus complete obstruction; K63.9 Disease of intestine, unspecified
CPT/HCPCS: 99213

== ENCOUNTER → 2024-03-10 14:31 | Outpatient (BNVA) | payer MEDICARE, SELFPAY | PROVIDERS: PCP Internal Medicine; Visit Provider Nurse Practitioner Family | DX: K57.90 Diverticulosis of intestine, part unspecified, without perforation or abscess without bleeding (principal); K58.2 Mixed irritable bowel syndrome; K59.01 Slow transit constipation; K56.699 Other intestinal obstruction unspecified as to partial versus complete obstruction; K63.9 Disease of intestine, unspecified; R85.7 Abnormal histological findings in specimens from digestive organs and abdominal cavity | CPT/HCPCS: 99212 ==

== ENCOUNTER 2024-05-11 09:34 | Outpatient (AMB) | payer MEDICARE, SELFPAY ==
[2024-05-11 09:40] VITALS: BP 94/62; PULSE 78; O2SAT 99; BMI 25.3
--- NOTE | 2024-05-11 09:40 | A.OFFPC_ITS ---
Vital Signs 05/11/24 09:40 Height 5 ft 3 in Weight 143 lb 0.4 oz BMI 25.3 BP 94/62 Blood Pressure Location Lt brachial Position Sitting Pulse 78 Pulse Source Pulse Oximeter Pulse Oximetry (%) 99 Oxygen Delivery Method Room Air Intake Visit Reasons: 6m f/u [employer] Door Greeter Required: No Allergies magnesium Allergy (Intermediate, Verified 05/11/24 10:08) upset stomach Medication List - Last Reconciled 05/11/24 by Ryan Hagan MD albuterol sulfate 90 mcg/actuation (ProAir HFA) 2 puffs inhalation Q6H PRN 30 days amoxicillin-pot clavulanate 875-125 mg tabs PO BID effpmmclku-gktuooma-mcvmcvxsld 160-9-4.8 mcg/actuation (Breztri Aerosphere) 2 inhalations inhalation BID 30 days cyclosporine 0.05% (Restasis) 1 drp ophthalmic (eye) Q12H docusate sodium 100 mg PO BEDTIME enalapril-hydrochlorothiazide 5-12.5 mg 1 tab PO DAILY mesalamine ER (Apriso) 1.5 grams (4 x 0.375 gram) PO QAM multivitamin 1 tab PO DAILY rosuvastatin 5 mg PO DAILY Tobacco use date assessed: 10/28/23 Fall risk assessment: No Falls in past year Last assessed Fall Risk: 05/11/24 Dental Screening Dental Screen Date: 10/28/23 HPI 6m f/u HPI Details 78-year-old female presents to the offic e to discuss her chronic medical conditions. Patient is at baseline state of health. Able to function and do all activities of daily living. Since last office visit, patient had a CT colonography which showed diverticulosis. She also has history of inflammatory bowel disease for which she is taking mesalamine. This has brought significant relief to her. She is no longer taking the ciprofloxacin. Last week patient had a dental infection that needed antibiotic use. She is also scheduled for a right knee replacement later this month. [facility] Medical History Abnormal inflammatory bowel disease panel Peripheral neuropathy Diverticulosis Essential hypertension Tubular adenoma History of diverticulitis Osteopenia Screening for diabetes mellitus COPD (chronic obstructive pulmonary disease) Surgical History History of colonoscopy History of partial hysterectomy History of hip replacement History of appendectomy Family History Father No problems noted. Mother No problems noted. Social History Housing: House Are you a primary resident care manager rn to a significant other at home: No Do you presently have visiting nurse or other home services: No Alcohol intake: current Alcohol intake frequency: 0-2 drinks per day Patient Tobacco Use Status: Former Tobacco user Tobacco use type: Cigarette e-Cigarette/Vaping Use: Never Used Second Hand Smoke Exposure: No service: No Current occupational status: retired Cognitive needs: No Hearing needs: No Vision needs: Yes (contact) Questionnaire Thrive Questionnaire Date Thrive assessed: 10/28/23 AUDIT C Alcohol Use Questionnaire (AUDIT-C) 1. How often do you have a drink containing alcohol?: 4 or more times a week 2. How many drinks containing alcohol do you have on a typical day when you are drinking?: 1 or 2 Total Score: 4 ABDIRASHID-7 AMB Questionnaire ABDIRASHID-7 Date ABDIRASHID - 7 assessed: 10/28/23 Source: Developed by Drs. Dm Medina, Sabrina Lora, Junito Iyer and colleagues, with an educational janessa from [employer]. Physical exam (Primary Care) Vital Signs: Last Vital Signs Pulse 78 05/11/24 09:40 BP 94/62 05/11/24 09:40 Pulse Ox 99 05/11/24 09:40 Oxygen Delivery Method Room Air 05/11/24 09:40 Care Plan Goal for BP management: Blood pressure is normal. BMI result Body Mass Index 25.3 Tobacco/Smoking Status: Tobacco use Status Tobacco use date assessed 10/28/23 05/11/24 09:42 Patient Tobacco Use Status Former Tobacco user 05/11/24 09:42 Tobacco use type Cigarette 05/11/24 09:42 e-Cigarette/Vaping Use Never Used 05/11/24 09:42 Thrive Assessment: Date of Thrive Assessment Date Thrive assessed 10/28/23 05/11/24 09:42 Date of discussion: 05/11/24 Who was present: Patient Forms completed: Health Care Proxy and MOLST Time spent: 1-15 minutes, not on file Actual minutes spent: 5 Const General: cooperative and healthy appearing Nutritional Appearance: well nourished Orientation/consciousness: patient oriented x3 Limitations: no limitations HENMT Head: Yes normal to inspection Eyes General: appearance normal, both eyes and all related structures Neck Neck: Yes normal visual inspection Chest Chest palpation & inspection: normal palpation of entire chest wall Resp Effort & Inspection: normal respiratory effort Neuro General: patient oriented x3 Assessment and Plan Assessment & Plan (1) Essential hypertension: Code(s): I10 - Essential (primary) hypertension Plan: Blood pressure is in range. Continue medications at same dosage. (2) Right hip pain: Code(s): M25.551 - Pain in right hip Plan: Patient is scheduled for knee surgery. (3) Irritable bowel syndrome: Code(s): K58.9 - Irritable bowel syndrome without diarrhea Qualifiers: Irritable bowel syndrome type: with both diarrhea and constipation Qualified Code(s): K58.2 - Mixed irritable bowel syndrome Plan: Significant improvement on mesalamine. Continue current medications. (4) COPD (chronic obstructive pulmonary disease): Comment: HAS CHRONIC OBSTRUCTIVE PULMONARY DISEASE, MODERATELY SEVERE, AND IT HAS REMAINED VERY STABLE OVER THE PAST FEW YEARS. SHE WILL CONTINUE SYMBICORT 160-4.52 PUFFS B.I.D., AND WHEN SHE IS STABLE SHE MAY USE IT ONLY ONCE A DAY. PROAIR 2 PUFFS Q 4-6 HOURS ONLY P.R.N.. Code(s): J44.9 - Chronic obstructive pulmonary disease, unspecified Orders: Orders Lipid Panel Today I10 - Essential (primary) hypertension Thyroid Stimulating Hormone Today I10 - Essential (primary) hypertension Basic Metabolic Panel Today I10 - Essential (primary) hypertension Complete Blood Count no Diff Today I10 - Essential (primary) hypertension Liver Panel Today I10 - Essential (primary) hypertension UA and rflx microscopic Today I10 - Essential (primary) hypertension Coding Level of Care Code Est Pt Level 4 (47325) Complex EM visit Add On G2211 Diagnoses Essential hypertension I10 Right hip pain M25.551 Irritable bowel syndrome with both constipation and diarrhea K58.2 Irritable bowel syndrome type: with both diarrhea and constipation COPD (chronic obstructive pulmonary disease) J44.9 Additional Codes Vital Signs *Quality* - Time spent: 1-15 minutes, not on file ([id number])
== END 2024-05-11 10:01 | disposition home or self-care (01) ==
PROVIDERS: PCP Internal Medicine; Visit Provider Internal Medicine
DX: I10 Essential (primary) hypertension (principal); M25.551 Pain in right hip; K58.2 Mixed irritable bowel syndrome; J44.9 Chronic obstructive pulmonary disease, unspecified; Z00.00 Encounter for general adult medical examination without abnormal findings
CPT/HCPCS: 1124F; 99214; G2211

== ENCOUNTER 2024-05-23 08:50 | Outpatient (REF) | payer MEDICARE, SELFPAY ==
[2024-05-23 10:11] LABS: Hematocrit 38.9 % (37.0-47.0); Hemoglobin 12.6 g/dl (12.0-16.0); Mean Corpuscular HGB Conc 32.4 g/dl (31.0-35.0); Mean Corpuscular Hemoglobin 31.6 pg (27.0-33.0); Mean Corpuscular Volume 97.5 fL (80.0-98.0); Mean Platelet Volume 10.1 fL (9.4-12.3); Platelet Count 206 X10*3/uL (160-400); Red Blood Count 3.99 X10*6/uL (4.20-5.50); Red Cell Distribution Width 12.6 % (11.0-16.0); White Blood Count 4.5 X10*3/uL (4.8-10.8)
[2024-05-23 10:17] LABS: Appearance Urine Clear; Color Urine Yellow; Glucose Urine UA Negative (Negative); Leukocyte Esterase Urine Negative (Negative); Nitrite Urine Negative (Negative); PH 5.5 (5.0-9.0); Specific Gravity - Urine 1.015 (1.005-1.025); Urine Blood Negative (Negative); Urine Ketones Negative (Negative); Urine Protein Negative (Neg-Trace)
[2024-05-23 11:16] LABS: Alanine Aminotransferase 20 U/L (0-31); Albumin Level 4.2 g/dL (3.5-5.0); Alkaline Phosphatase 62 U/L (39-117); Anion Gap 12 (12-20); Aspartate Amino Transferase 21 U/L (5-31); Bilirubin Direct 0.3 mg/dL (0.0-0.5); Blood Urea Nitrogen 21 mg/dL (9-16); Calcium 9.8 mg/dL (8.4-10.2); Carbon Dioxide 28 mmol/L (22-29); Chloride 106 mmol/L (96-108); Cholesterol 182 mg/dL (<200); Estimated Glomerular Filt Rate > 60; Glucose Random 103 mg/dL (60-115); HDL Cholesterol 57 mg/dL (>40); LDL Cholesterol Calculated 99 mg/dL (<100); Potassium 4.4 mmol/L (3.3-5.1); Sodium 142 mmol/L (135-145); Triglycerides 131 mg/dL (<150)
[2024-05-23 11:32] LABS: Thyroid Stimulating Hormone 2.53 uIU/mL (0.32-4.0)
== END 2024-05-23 08:51 | disposition home or self-care (01) ==
LOC: HO.LAB 08:50
PROVIDERS: PCP Internal Medicine; Visit Provider Internal Medicine
DX: I10 Essential (primary) hypertension (principal)
CPT/HCPCS: 36415; 80048; 80061; 80076; 81003; 84443; 85027

== ENCOUNTER 2024-06-07 14:06 | Outpatient (AMB) | payer MEDICARE, SELFPAY ==
--- NOTE | 2024-06-07 14:10 | A.OFFPC_ITS ---
Vital Signs 06/07/24 14:12 Height 5 ft 3 in Weight 150 lb BMI 26.6 BP 130/60 Blood Pressure Location Lt brachial Position Sitting Pulse 76 Pulse Source Pulse Oximeter Pulse Oximetry (%) 98 Oxygen Delivery Method Room Air Intake Visit Reasons: [facility] 06/06 due to a neurogenic shock Intake Note: Patient is here for hospital discharge follow up. Patient was discharged from [facility] on 06/04/24. 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 Pretzel Cooker: Present Accompanied by: Spouse Allergies magnesium Allergy (Intermediate, Verified 06/13/24 15:51) upset stomach Medication List - Last Reconciled 06/13/24 by Ryan Hagan MD albuterol sulfate 90 mcg/actuation (ProAir HFA) 2 puffs inhalation Q6H PRN 30 days amoxicillin-pot clavulanate 875-125 mg tabs PO BID [id number]-ruzsgzrx-cjrjodllhz 160-9-4.8 mcg/actuation (Breztri Aerosphere) 2 inhalations inhalation BID 30 days cyclosporine 0.05% (Restasis) 1 drp ophthalmic (eye) Q12H docusate sodium 100 mg PO BEDTIME enalapril-hydrochlorothiazide 5-12.5 mg 1 tab PO DAILY multivitamin 1 tab PO DAILY rosuvastatin 5 mg PO DAILY Tobacco use date assessed: 06/07/24 Fall risk assessment: No Falls in past year Last assessed Fall Risk: 06/07/24 Dental Screening Dental Screen Date: 10/28/23 HPI [facility] 06/06 due to a neurogenic shock HPI Details 78-year-old female presents to the offic e for a follow-up visit. Tracy gilbert was in [facility] for an elective knee replacement procedure. During the time of induction of anesthesia, patient had a cardiac arrest and had to be resuscitated back. In this process, she received significant bruising over the chest. Patient is now back at baseline but continues to feel sore in the chest. Symptoms are worse when she bends forward. [facility] Medical History Abnormal inflammatory bowel disease panel Peripheral neuropathy Diverticulosis Essential hypertension Tubular adenoma History of diverticulitis Osteopenia Screening for diabetes mellitus COPD (chronic obstructive pulmonary disease) Surgical History History of colonoscopy History of partial hysterectomy History of hip replacement History of appendectomy Family History Father No problems noted. Mother No problems noted. Social History Housing: House Are you a primary lawn care worker to a significant other at home: No Do you presently have visiting nurse or other home services: No Alcohol intake: current Alcohol intake frequency: 0-2 drinks per day Patient Tobacco Use Status: Former Tobacco user Tobacco use type: Cigarette e-Cigarette/Vaping Use: Never Used Second Hand Smoke Exposure: No service: No Current occupational status: retired Cognitive needs: No Hearing needs: No Vision needs: Yes (contact) Questionnaire Thrive Questionnaire Date Thrive assessed: 10/28/23 ABDIRASHID-7 AMB Questionnaire ABDIRASHID-7 Date ABDIRASHID - 7 assessed: 10/28/23 Source: Developed by Drs. Dm Medina, Sabrina Lora, Junito Iyer and colleagues, with an educational janessa from [employer]. Physical exam (Primary Care) Vital Signs: Last Vital Signs Pulse 76 06/07/24 14:12 BP 130/60 06/07/24 14:12 Pulse Ox 98 06/07/24 14:12 Oxygen Delivery Method Room Air 06/07/24 14:12 Care Plan Goal for BP management: BP is in range. BMI result Body Mass Index 26.6 Tobacco/Smoking Status: Tobacco use Status Tobacco use date assessed 06/07/24 06/07/24 14:18 Patient Tobacco Use Status Former Tobacco user 06/07/24 14:11 Tobacco use type Cigarette 06/07/24 14:11 e-Cigarette/Vaping Use Never Used 06/07/24 14:11 Thrive Assessment: Date of Thrive Assessment Date Thrive assessed 10/28/23 06/07/24 14:11 Const General: cooperative and healthy appearing Nutritional Appearance: well nourished Orientation/consciousness: patient oriented x3 Limitations: no limitations HENMT Head: Yes normal to inspection Eyes General: appearance normal, both eyes and all related structures Neck Neck: Yes normal visual inspection Chest Other: Bruising over the anterior chest wall. Bruising over the right arm. Resp Effort & Inspection: normal respiratory effort Neuro General: patient oriented x3 Assessment and Plan Assessment & Plan (1) Chest wall contusion: Code(s): S20.219A - Contusion of unspecified front wall of thorax, initial encounter Plan: Events at [facility] reviewed. Chest bruising will subside with time. Patient was reassured. Patient has an upcoming cardiology appointment. Coding Level of Care Code Est Pt Level 3 (70347) Complex EM visit Add On G2211 Diagnoses Chest wall contusion S20.219A
[2024-06-07 14:12] VITALS: BP 130/60; PULSE 76; O2SAT 98; BMI 26.6
== END 2024-06-07 14:35 | disposition home or self-care (01) ==
PROVIDERS: PCP Internal Medicine; Visit Provider Internal Medicine
DX: S20.219A Contusion of unspecified front wall of thorax, initial encounter (principal)
CPT/HCPCS: 99213; G2211

== ENCOUNTER 2024-07-05 10:52 | Outpatient (AMB) | payer MEDICARE, SELFPAY ==
--- NOTE | 2024-07-05 10:56 | MHC.OFFVIS ---
Vital Signs 07/05/24 10:57 Height 5 ft 3 in Weight 147 lb BMI 26.0 BP 118/58 L Blood Pressure Location Lt brachial Position Sitting Pulse 75 Pulse Source Pulse Oximeter Pulse Oximetry (%) 99 Oxygen Delivery Method Room Air Intake Visit Reasons: COPD Intake Note: pt is here for follow up and states her breathing is okay tight in am in chest , but had a incident before knee replacement which had to be stopped and is now on a heart monitor. Allergies magnesium Allergy (Intermediate, Verified 07/05/24 11:22) upset stomach spinal anesthesia Adverse Reaction (Severe, Uncoded 07/05/24 11:22) neuromonic shock Medication List - Last Reconciled 07/05/24 by Trang James MD albuterol sulfate 90 mcg/actuation (ProAir HFA) 2 puffs inhalation Q6H PRN 30 days amoxicillin-pot clavulanate 875-125 mg tabs PO BID rnmenqbeud-ctjwocxs-ubjzjmuzvn 160-9-4.8 mcg/actuation (Breztri Aerosphere) 2 inhalations inhalation BID 30 days cyclosporine 0.05% (Restasis) 1 drp ophthalmic (eye) Q12H docusate sodium 100 mg PO BEDTIME enalapril-hydrochlorothiazide 5-12.5 mg 1 tab PO DAILY mesalamine ER 1.5 grams PO DAILY multivitamin 1 tab PO DAILY rosuvastatin 5 mg PO DAILY Do you need a note to return to daycare/school/sports/work: No HPI HPI COPD: Details: 78 years old very pleasant female with longstanding diagnosis of chronic obstructive pulmonary disease, comes for follow-up after 1 year. Breathing status has remained very stable without any acute exacerbations. Currently she is on Breztri ( budesonide-glycopyrmoterol ) 160-4.8 2 puffs b.i.d.. But he is most of the times using only 2 puffs in the morning , and uses the 2 puffs in the evening only if she has increased shortness of breath. She hardly needs to use albuterol as rescue inhaler. She was good have knee surgery but on the table when she was receiving spinal anesthesia she had acute vasovagal syndrome, with transitory bradycardia. So the surgery was canceled. Knee surgery is still in the plans but she would have it under general anesthesia. She is being evaluated by Cardiology. PFSH Medical History Abnormal inflammatory bowel disease panel Peripheral neuropathy Diverticulosis Essential hypertension Tubular adenoma History of diverticulitis Osteopenia Screening for diabetes mellitus COPD (chronic obstructive pulmonary disease) Surgical History History of colonoscopy History of partial hysterectomy History of hip replacement History of appendectomy Family History Father No problems noted. Mother No problems noted. Social History Housing: House Are you a primary emergency care tech to a significant other at home: No Do you presently have visiting nurse or other home services: No Alcohol intake: current Alcohol intake frequency: 0-2 drinks per day Patient Tobacco Use Status: Former Tobacco user Tobacco use type: Cigarette e-Cigarette/Vaping Use: Never Used Second Hand Smoke Exposure: No service: No Current occupational status: retired Cognitive needs: No Hearing needs: No Vision needs: Yes (contact) Review of Systems Const All systems reviewed & are unremarkable except as noted in HPI and below Eyes Reports no additional complaints ENT Reports no additional complaints and Reports other (Occasional self-limiting bleeding from the left nostril, during winter) Card Denies chest pain, Denies irregular heart rhythm and Denies leg edema Resp Reports as per HPI GI Reports no additional complaints and Reports heartburn (CONTROLLED WITH OMEPRAZOLE) Reports no additional complaints Musc Reports no additional complaints Skin/Breast Reports system reviewed and no additional complaints, except as documented Neuro Reports no additional complaints Psych Reports no additional complaints Physical Exam Vital Signs: Last Vital Signs Pulse 75 07/05/24 10:57 BP 118/58 L 07/05/24 10:57 Pulse Ox 99 07/05/24 10:57 Oxygen Delivery Method Room Air 07/05/24 10:57 BMI result Body Mass Index 26.0 Const General: healthy appearing, comfortable, no acute distress, alert and awake Orientation/consciousness: patient oriented x3 HEENT Head: Yes normal to inspection General nose exam: No nasal polyps present, No nasal discharge present and Other nasal findings present (No active bleeding spot noted at this time) Face and sinus: Yes sinuses nontender Mouth: oropharynx normal Throat: Yes posterior oropharynx normal Eyes General: appearance normal, both eyes and all related structures Neck Neck: Yes normal visual inspection, Yes no lymphadenopathy, Yes trachea midline and Yes no JVD Thyroid: Thyroid normal Chest Chest palpation & inspection: normal inspection of the chest, normal palpation of entire chest wall and no tenderness Resp Other: Percussion note resonant, breath sounds are normal, slightly prolonged expiratory phase. No wheezes or rhonchi are heard. Cardio Palpation: normal PMI Rate: regular rate Rhythm: regular rhythm Heart sounds: no gallops and no murmurs Peripheral pulses: Peripheral pulses 2+ throughout GI Palpation (GI): Soft to palpation, nontender, No hepatosplenomegaly present and no masses Auscultation: normal bowel sounds Back/Spine/Pelvis Thoracic/Lumbar Spine: thoracic and lumbar spine normal to inspection Skin General skin exam: no rashes or lesions noted Neuro General: patient oriented x3 and no focal motor deficits Cranial nerves: Yes CN's II-XII intact bilaterally Extrem General: Yes normal to inspection, Yes no calf tenderness and Yes edema (Only trace of pitting edema around the ankles) Psych Appearance: grossly normal and well kempt Speech and movement: Normal speech and movement present Assessment & Plan Assessment & Plan (1) COPD (chronic obstructive pulmonary disease): Comment: HAS CHRONIC OBSTRUCTIVE PULMONARY DISEASE, MODERATELY SEVERE, AND IT HAS REMAINED VERY STABLE OVER THE PAST FEW YEARS. CURRENTLY SHE IS ON BREZTRI 160-4.8 2 PUFFS B.I.D. BUT TAKING MOSTLY IN THE MORNING AND SKIPPING THE EVENING DOSE. SHE IS USING ALBUTEROL ONLY SPARINGLY. Code(s): J44.9 - Chronic obstructive pulmonary disease, unspecified Category: Medical Plan: BREZTRI 160-4.8 2 PUFFS B.I.D. PROAIR 2 PUFFS Q 4-6 HOURS ONLY P.R.N.. OK TO COME ONCE A YEAR FOR FOLLOW-UP BUT IF SYMPTOMS GET ANY WORSE THEN SHE SHOULD COME TO SEE ME RIGHT AWAY. Coding Level of Care Code Est Pt Level 3 (30244) Diagnoses COPD (chronic obstructive pulmonary disease) J44.9
[2024-07-05 10:57] VITALS: BP 118/58; PULSE 75; O2SAT 99; BMI 26.0
== END 2024-07-05 11:22 | disposition home or self-care (01) ==
PROVIDERS: PCP Internal Medicine; Visit Provider Internal Medicine
DX: J44.9 Chronic obstructive pulmonary disease, unspecified (principal)
CPT/HCPCS: 99213

== ENCOUNTER → 2024-07-05 10:52 | Outpatient (BNVA) | payer MEDICARE, SELFPAY | PROVIDERS: PCP Internal Medicine; Visit Provider Internal Medicine | DX: J44.9 Chronic obstructive pulmonary disease, unspecified (principal) | CPT/HCPCS: 99212 ==

== ENCOUNTER 2024-08-22 10:14 | Outpatient (REF) | payer MEDICARE, SELFPAY ==
--- NOTE | ~2024-08-22 | MM_ITS ---
EXAMINATION: MM SCREENING DIGITAL BREAST TOMOSYNTHESIS, BILATERAL CLINICAL INFORMATION: Screening. Asymptomatic. COMPARISON: Mammography: Comparison is made with available priors TECHNIQUE: Digital breast mammography with tomosynthesis is performed in both the craniocaudal and mediolateral oblique views along with computer-aided detection (CAD). FINDINGS: The breasts are heterogeneously dense, which may obscure small masses (ACR BI-RADS breast composition Category c). There are no significant masses, abnormal calcifications, or other abnormalities. MM/MM tomosynthesis screening BI IMPRESSION: No mammographic evidence of malignancy. ASSESSMENT: BI-RADS BI-RADS 1 - Negative RECOMMENDATION: Routine annual mammography screening. 1 year F/U This examination should not preclude the clinical evaluation of a suspicious palpable abnormality. This patient's information was entered into a reminder system with a target due date for their next mammogram. Electronically signed by: Flor Bradley DO 08/30/2024 08:17 AM FRANCISCO
== END 2024-08-22 10:15 | disposition home or self-care (01) ==
LOC: HO.MAMMO 10:14
PROVIDERS: PCP Internal Medicine; Visit Provider Internal Medicine
DX: Z12.31 Encounter for screening mammogram for malignant neoplasm of breast (principal)
CPT/HCPCS: 77063; 77067

== ENCOUNTER → 2024-08-22 10:30 | Outpatient (BNV) | payer MEDICARE, SELFPAY | PROVIDERS: PCP Internal Medicine; Visit Provider Internal Medicine | DX: Z12.31 Encounter for screening mammogram for malignant neoplasm of breast (principal) | CPT/HCPCS: 77063; 77067 ==

== ENCOUNTER 2024-09-08 10:51 | Outpatient (AMB) | payer MEDICARE, SELFPAY ==
[2024-09-08 10:54] VITALS: BP 102/58; PULSE 66; O2SAT 96; BMI 26.0
--- NOTE | 2024-09-08 10:54 | A.OFFVIS_ITS ---
Vital Signs 09/08/24 10:54 Height 5 ft 3 in Weight 147 lb BMI 26.0 BP 102/58 L Blood Pressure Location Lt brachial Position Sitting Pulse 66 Pulse Source Pulse Oximeter Pulse Oximetry (%) 96 Oxygen Delivery Method Room Air Comment Pt reported weight. Intake Visit Reasons: 6 month follow up Intake Note: Pharmacy - [facility] [employer] Laura presents in office today for a scheduled 6 mos FUV. CC; Any changes or new sx since last visit? None per pt. Everything has remained stable. Any labs or diagnostics since last visit? ?Labs done May 2024. No imaging. Trim Operator Required: No Allergies magnesium Allergy (Intermediate, Verified 09/08/24 10:55) upset stomach spinal anesthesia Adverse Reaction (Severe, Uncoded 07/05/24 11:22) neuromonic shock HPI HPI 6 month follow up: Details: LAST VISIT: Abnormal inflammatory bowel disease panel Diverticulosis Irritable bowel syndrome Constipation Stricture of sigmoid colon Sigmoid thickening Plan Continue mesalamine. Increase fluid intake and activity to promote better bowel motility. May use [id number] MiraLax or stool softeners to help her with bowel movements. Avoid dietary triggers. Eat smaller meals and more often. Next visit we will check stool calprotectin to evaluate for effectiveness her treatment. Patient will return to the office in 6 months, sooner on as needed basis. She is agreeable to this plan and verbalizes understanding of instructions. She was given the opportunity to ask questions and all questions answered. ? Thank you for allowing me to participate in her care Medications Refilled mesalamine ER (Apriso) 1.5 grams (4 x 0.375 gram) PO QAM 120 caps 5RF R85.7 Discontinued Symbicort 160-4.5 mcg/actuation (budesonide-formoterol) Discontinued Reason: Patient no longer taking 2 puffs inhalation BID 10.2 ea 3RF NS J44.9 TODAY'S VISIT Patient is here today for follow-up. Patient reports that she has been doing well. Takes mesalamine daily and her symptoms have been suppressed. Patient has not had any abdominal pain since last visit. Patient denies having any flare ups of diverticulitis/colitis. Patient admits that when she has regular ice cream the next day she will have several loose stools. Patient reports that when she eats beef she will be constipated. Patient is trying to avoid dietary triggers. Patient reports that in the beginning of the year her is going to [place] for bone marrow transplant. Patient states that she would have to be careful. She will not be able to make any appointments for minimum 3 months as patient has to be home. [facility] Medical History Abnormal inflammatory bowel disease panel Peripheral neuropathy Diverticulosis Essential hypertension Tubular adenoma History of diverticulitis Osteopenia Screening for diabetes mellitus COPD (chronic obstructive pulmonary disease) Surgical History History of colonoscopy History of partial hysterectomy History of hip replacement History of appendectomy Family History Father No problems noted. Mother No problems noted. Social History Housing: House Are you a primary assistant child care teacher to a significant other at home: No Do you presently have visiting nurse or other home services: No Alcohol intake: current Alcohol intake frequency: 0-2 drinks per day Patient Tobacco Use Status: Former Tobacco user Tobacco use type: Cigarette e-Cigarette/Vaping Use: Never Used Second Hand Smoke Exposure: No service: No Current occupational status: retired Cognitive needs: No Hearing needs: No Vision needs: Yes (contact) Review of Systems Const Denies weight gain and Denies weight loss ENT Reports no additional complaints, Denies dysphagia and Denies odynophagia Card Reports no additional complaints Resp Reports no additional complaints GI Denies abdominal pain, Denies belching, Denies melena, Denies bloating, Denies change in bowel habits, Denies dysphagia, Denies excessive flatus, Denies dyspepsia, Denies heartburn, Denies diarrhea, Denies loose stools, Denies nausea, Denies odynophagia and Denies vomiting Reports no additional complaints Musc Reports no additional complaints Neuro Reports no additional complaints Psych Reports no additional complaints Endo Reports no additional complaints Physical Exam Vital Signs: Last Vital Signs Pulse 66 09/08/24 10:54 BP 102/58 L 09/08/24 10:54 Pulse Ox 96 09/08/24 10:54 Oxygen Delivery Method Room Air 09/08/24 10:54 BMI result Body Mass Index 26.0 Const General: healthy appearing, no acute distress and well developed Nutritional Appearance: well nourished Orientation/consciousness: patient oriented x3 Resp Effort & Inspection: normal respiratory effort, able to speak in complete sentences, no tracheal deviation and symmetric chest movement Auscultation: clear to auscultation bilaterally Cardio Rate: regular rate GI Inspection: Yes normal to inspection and No distended Palpation (GI): Soft to palpation, not firm, nontender and No hepatosplenomegaly present Auscultation: normal bowel sounds General: Yes no CVA tenderness Back/Spine/Pelvis Back: no CVA tenderness Skin General skin exam: elasticity normal, turgor normal and dry skin Neuro General: patient oriented x3 Psych Appearance: grossly normal Mental Status: mental status grossly normal Assessment & Plan Assessment & Plan (1) Abnormal inflammatory bowel disease panel: Code(s): R85.7 - Abnormal histological findings in specimens from digestive organs and abdominal cavity Category: Medical (2) Diverticulosis: Code(s): K57.90 - Diverticulosis of intestine, part unspecified, without perforation or abscess without bleeding Category: Medical (3) Irritable bowel syndrome: Code(s): K58.9 - Irritable bowel syndrome, unspecified Category: Medical Qualifiers: Irritable bowel syndrome type: with both diarrhea and constipation Qualified Code(s): K58.2 - Mixed irritable bowel syndrome (4) Constipation: Code(s): K59.00 - Constipation, unspecified Qualifiers: Constipation type: slow transit constipation Qualified Code(s): K59.01 - Slow transit constipation (5) Stricture of sigmoid colon: Code(s): K56.699 - Other intestinal obstruction unspecified as to partial versus complete obstruction (6) Sigmoid thickening: Code(s): K63.9 - Disease of intestine, unspecified Plan Continue mesalamine. Patient is reporting that she is doing well. Avoid dietary triggers. Continue low FODMAP diet as much as possible. Patient will stay away from lactose as it is making her have multiple diarrhea after. Patient will be going to [place] with her for treatment. She is worried that she might have symptoms would like to have Cipro on hand as she will not be able to leave the treatment area where her will be staying. Script for 7 day supply given to patient. Patient was encouraged to move her bowels daily and take MiraLax as needed as well as increase fluid intake. I will see patient in 6 months, sooner on as needed basis. She is agreeable to this plan and verbalizes understanding of instructions. She was given the opportunity to ask questions and all questions answered. Thank you for allowing me to participate in her care Medications: New ciprofloxacin HCl 500 mg PO BID 14 tabs 0RF Coding Level of Care Code Est Pt Level 4 (14308) Complex EM visit Add On G2211 Diagnoses Abnormal inflammatory bowel disease panel R85.7 Diverticulosis K57.90 Irritable bowel syndrome with both constipation and diarrhea K58.2 Irritable bowel syndrome type: with both diarrhea and constipation Slow transit constipation K59.01 Constipation type: slow transit constipation Stricture of sigmoid colon K56.699 Sigmoid thickening K63.9 Time Spent (min) 40 Comment 25 minutes spent with patient and additional 15 minutes spent reviewing her records
== END 2024-09-08 12:12 | disposition home or self-care (01) ==
PROVIDERS: PCP Internal Medicine; Visit Provider Nurse Practitioner Family
DX: R85.7 Abnormal histological findings in specimens from digestive organs and abdominal cavity (principal); K57.90 Diverticulosis of intestine, part unspecified, without perforation or abscess without bleeding; K58.2 Mixed irritable bowel syndrome; K59.01 Slow transit constipation; K56.699 Other intestinal obstruction unspecified as to partial versus complete obstruction; K63.9 Disease of intestine, unspecified
CPT/HCPCS: 99214; G2211

== ENCOUNTER → 2024-09-08 10:51 | Outpatient (BNVA) | payer MEDICARE, SELFPAY | PROVIDERS: PCP Internal Medicine; Visit Provider Nurse Practitioner Family | DX: K57.90 Diverticulosis of intestine, part unspecified, without perforation or abscess without bleeding (principal); K58.2 Mixed irritable bowel syndrome; K59.01 Slow transit constipation; K56.699 Other intestinal obstruction unspecified as to partial versus complete obstruction; R85.7 Abnormal histological findings in specimens from digestive organs and abdominal cavity | CPT/HCPCS: 99212 ==

== ENCOUNTER 2024-09-18 08:51 | Outpatient (AMB) | payer MEDICARE, SELFPAY ==
--- NOTE | 2024-09-18 08:59 | A.OFFVIS_ITS ---
Intake Vital Signs 09/18/24 09:00 Height 5 ft 3 in Weight 147 lb BMI 26.0 BP 110/60 Blood Pressure Location Lt brachial Position Sitting Pulse 77 Pulse Source Pulse Oximeter Pulse Oximetry (%) 93 Oxygen Delivery Method Room Air Intake Visit Reasons: Medicare Annual Intake Note: Patient is here for an Annual Wellness Visit. Track Grinder Operator Required: No Hr Payroll Coordinator: Hr Payroll Coordinator offered & declined Accompanied by: Self / Same As Patient Allergies magnesium Allergy (Intermediate, Verified 09/18/24 09:32) upset stomach spinal anesthesia Adverse Reaction (Severe, Uncoded 09/18/24 09:32) neuromonic shock Medication List - Last Reconciled 09/18/24 by Jennifer Collins PA-C albuterol sulfate 90 mcg/actuation (ProAir HFA) 2 puffs inhalation Q6H PRN 30 days apixaban (Eliquis) 5 mg PO BID ckjimlrkzg-awpixgoq-aojpvqkwoz 160-9-4.8 mcg/actuation (Breztri Aerosphere) 2 inhalations inhalation BID 30 days ciprofloxacin HCl 500 mg PO BID cyclosporine 0.05% (Restasis) 1 drp ophthalmic (eye) Q12H docusate sodium 100 mg PO BEDTIME enalapril-hydrochlorothiazide 5-12.5 mg 1 tab PO DAILY mesalamine ER 1.5 grams PO DAILY multivitamin 1 tab PO DAILY rosuvastatin 5 mg PO DAILY Do you need a note to return to daycare/school/sports/work: No HPI Medicare Annual HPI Details History of Present Illness The patient is a 78-year-old female presenting for a routine wellness physical examination. She has a history of essential hypertension, which she has been managing with medication. Recently, she has been diagnosed with atrial fibrillation requiring Eliquis 500 mg twice daily, prescribed by her cheesemaker helper, Dr. Coronel, after an episode related to anesthesia during an attempted knee replacement. The atrial fibrillation was confirmed through a cardiac technologist. She is also on enalapril/hydrochlorothiazide for hypertension, as well as rosuvastatin and Restasis for other conditions. In her past medical history, she has COPD, for which she uses inhalers. Her respiratory condition involves a chronic cough with morning mucus, currently managed with Mucinex. She denies fever and significant dyspnea. She has a long-standing diagnosis of diverticulosis found during colon cancer screening. Her preventative care includes recent bone density testing and mammogram, and she is up to date with her pneumococcal and flu vaccinations. 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 - Non-smoker, with a historical exposure to secondhand smoke. - Consumes alcohol, approximately 6 to 9 beverages per week. - No regular exercise routine, but remai ns physically active through daily caregiving and household activities. - Has a strong social support system and maintains independence in daily activities including shopping and meal preparation. HPI Comments History of Present Illness Details Patient is here for an Annual Wellness Visit today. Reviewed past medical history- yes Reviewed surgical / hospitalization history- yes Reviewed current medications- yes Reviewed family history- yes Home safety Throw rugs? No Grab bars? No Raised toilet seat? No Working smoke detectors? Yes Activities of daily living Difficulty bathing or showering? No Difficulty dressing? No Difficulty using the toilet? No Difficulty getting in and out of bed? No Difficulty walking? No Receives help from other person's with any of the above tasks? No Instrumental activities of daily living Uses telephone - Yes Gets to place out of walking distance- Yes Go shopping for groceries- Yes Repairs own meals- Yes Does own minor home maintenance- Yes Does own laundry- Yes Does own housework- Yes Manages own money- Yes Currently takes medication- Yes End of life planning Discussed advanced directives- yes Advanced directives on file? Yes Discussed wishes expressed in advanced directives. Fall risk? No Have you had any falls with injuries in the past year? No Have you had 2 or more falls in the past year? No Fall risk assessment: low fall risk patient [facility] Medical History Colon cancer screening (~01/15/24) History of bone density study (~10/08/23) Breast cancer screening by mammogram (~08/22/24) Abnormal inflammatory bowel disease panel Peripheral neuropathy Diverticulosis Essential hypertension Tubular adenoma History of diverticulitis Osteopenia Screening for diabetes mellitus COPD (chronic obstructive pulmonary disease) Surgical History History of colonoscopy History of partial hysterectomy History of hip replacement History of appendectomy Family History Father No problems noted. Mother No problems noted. Social History Housing: House Are you a primary assisted living care manager to a significant other at home: No Do you presently have visiting nurse or other home services: No Alcohol intake: current Alcohol intake frequency: 0-2 drinks per day Patient Tobacco Use Status: Former Tobacco user Tobacco use type: Cigarette e-Cigarette/Vaping Use: Never Used Second Hand Smoke Exposure: No service: No Current occupational status: retired Cognitive needs: No Hearing needs: No Vision needs: Yes (contact) Questionnaire Medicare Wellness Checkup [age] What gender do you identify with?: female During the past 4 weeks, how much have you been bothered by emotional problems such as feeling anxious, depressed, irritable, sad or downhearted, and blue?: not at all During the past 4 weeks, has your physical & emotional health limited your social activities with family, friends, neighbors, or groups?: not at all During the past 4 weeks, how much bodily pain have you generally had?: no pain During the past 4 weeks, was someone available to help you if you needed & wanted help?: yes, as much as I wanted During the past 4 weeks, what was the hardest physical activity you could do for at least 2 minutes?: moderate Can you get to places out of walking distance without help? (For eg., can you travel alone on buses, taxis or drive your car?): Yes Can you go shopping for groceries or clothes without someone's help?: Yes Can you prepare your own meals?: Yes Can you do your housework without help?: Yes Because of any health problems, do you need the help of another person with your personal care needs such as eating, bathing, dressing or getting around the house?: No Can you handle your own money without help?: Yes During the past 4 weeks, how would you rate your health in general?: very good During the past 4 weeks how have things been going for you?: pretty well Are you having difficulties driving your car?: no Do you always fasten your seat belt when you are in a car?: yes, usually During past 4 weeks, have you been bothered by the following: never: Falling or dizzy when standing up, Sexual problems?, Trouble eating well?, Teeth or denture problems?, Problems using the telephone? and Tiredness or fatigue? Have you fallen 2 or more times in the past year?: No Are you afraid of falling?: No Are you a smoker?: no During the past 4 weeks, how many drinks of wine, beer, or other alcoholic beverages did you have?: 2-5 drinks per week Do you exercise for about 20 minutes 3 or more times a week?: yes, some of the time Have you been given information to help with the following?: yes: Keeping track of your medications? and no: Hazards in your house that might hurt you? How often do you have trouble taking medicines the way you have been told to take them?: I always take medicine as prescribed How confident are you that you can control & manage most of your health problems?: very confident What is your race?: White Activity of Daily Living Bathing - sponge bath, tub bath or shower: receives no assistance (gets in/out by self, if usual bathing means Dressing - getting clothes from closets & drawers, including inner/outer garments & fasteners.: gets clothes & gets completely dressed without help Toileting - going to the 'toilet room' for urine/bowel elimination & cleaning self/arranging clothes: goes to toilet room, cleans self, arranges clothes without help Transfer: moves in & out of bed and chair without help (may use support object) Continence: controls urination/bowel movements completely by self Feeding: feeds self without help Total Score: 0 Information obtained from: patient Using telephone: independent Traveling: independent Shopping: independent Preparing meals: independent Housework: independent Taking medicine: independent Managing money: independent PHQ-9 Over the last 2 weeks, how often have you been bothered by any of the following problems? 1. Little interest or pleasure in doing things: not at all 2. Feeling down, depressed, or hopeless: not at all 3. Trouble falling or staying asleep, or sleeping too much: not at all 4. Feeling tired or having little energy: not at all 5. Poor appetite or overeating: not at all 6. Feeling bad about yourself - or that you are a failure or have let yourself or your family down: not at all 7. Trouble concentrating on things, such as reading the newspaper or watching television: not at all 8. Moving or speaking so slowly that other people could have noticed. Or the opposite - being so fidgety or restless that you have been moving around a lot more than usual: not at all 9. Thoughts that you would be better off or of hurting yourself in some way: not at all Total score: 0 Depression Screening Interpretation: Negative Depression Screening Done: Yes Source: Developed by Drs. Dm Medina, Sabrina Lora, Junito Iyer and colleagues, with an educational janessa from [employer]. Thrive Questionnaire Date Thrive assessed: 10/28/23 I am a: Patient What is your living situation today?: I have a steady place to live Within the past 12 months, did the food you bought not last and you didn't have the money to get more?: Never true Within the past 12 months, did you worry whether your food would run out before you got money to buy more?: Never true Do you have trouble paying for medicines?: No Do you have trouble getting transportation to medical appointments?: No Do you have trouble paying your heating and electricity bill?: No Do you have trouble taking care of your child, family member or friend?: No Do you have trouble with day-to-day activities such as bathing, preparing meals, shopping, managing finances, etc.?: No Are you currently unemployed and looking for a job?: No (retired) Are you interested in more education?: No Please select the resources that you would like help with: None THRIVE Score: 0 ABDIRASHID-7 AMB Questionnaire ABDIRASHID-7 Date ABDIRASHID - 7 assessed: 10/28/23 Feeling nervous, anxious, or on edge: 1 = Several days Not being able to stop or control worryin = Several days Worrying too much about different things: 1 = Several days Trouble relaxin = Not at all Being so restless that it is hard to sit still: 0 = Not at all Becoming easily annoyed or irritable: 0 = Not at all Feeling afraid as if something awful might happen: 0 = Not at all Total ABDIRASHID-7 score (0-4 normal; 5-9 mild; 10-14 moderate; 15-21 severe): 3 Source: Developed by Drs. Dm Medina, Sabrina Lora, Junito Iyer and colleagues, with an educational janessa from [employer]. ABDIRASHID-7 Assessment Billing ABDIRASHID-7 Assessment Tool: ABDIRASHID-7 Assessment 08363 AUDIT C Alcohol Use Questionnaire (AUDIT-C) 1. How often do you have a drink containing alcohol?: 4 or more times a week 2. How many drinks containing alcohol do you have on a typical day when you are drinking?: 1 or 2 3. How often do you have six or more drinks on one occasion?: Never Total Score: 4 Score Reviewed/Action Taken: No Review of Systems Const Details: Review of Systems - Respiratory: Reports chronic cough with morning mucus production, denies fever. - Neurological: Denies dizziness or falling, mentions slight tiredness. - Musculoskeletal: Denies recent falls but cautious due to hip replacements. - Emotional: Denies depression or anxiety impacting social interactions. All systems reviewed & are unremarkable except as noted in HPI and below Physical Exam Vital Signs: Last Vital Signs Pulse 77 09/18/24 09:00 BP 110/60 09/18/24 09:00 Pulse Ox 93 09/18/24 09:00 Oxygen Delivery Method Room Air 09/18/24 09:00 BMI result Body Mass Index 26.0 Const Other: Physical Exam Appearance: Alert. Oriented X3. No acute distress. Head: Normal external exam. Normocephalic. Atraumatic. No Vasquez signs noted. No raccoon eyes noted. Eyes: Pupils are equal, round, and reactive to light. Extraocular movements intact. Conjunctiva and sclera normal. Eyelids normal. Ears: External auditory canal normal. Tympanic membranes normal. Throat: Pharynx normal. Uvula midline. Moist mucous membranes. No trismus noted. No drooling noted. No muffled voice noted. Neck: Normal inspection. Neck supple. Full range of motion. No adenopathy. Thyroid Normal. No meningeal signs. No neck mass noted. Cardiovascular: Normal heart rate and rhythm. Heart sound normal. No murmurs noted. Pulses normal throughout. Respiratory: No respiratory distress. Painless inspiration. Breath sounds normal. No wheezes/rales/rhonchi noted. Chest nontender. No accessory muscle usage noted or decreased air movement noted. Abdomen: Soft and nontender. Bowel sounds normal in all 4 quadrants. No distention noted. No organomegaly noted. No visible injury noted. Back: No costovertebral angle tenderness. Full range of motion noted. Skin: Skin warm and dry. Normal skin color. Normal skin turgor. No rashes/lesions/lacerations noted. Extremities: No lower extremity edema. Extremities exhibit normal range of motion. Extremities nontender. Neuro: Oriented X 3. No motor deficit. No sensory deficit. Reflexes normal. HEENT Other: Hearing screening Whisper test- Passed Eyes Other: vision screening- Normal Other: urinary incontinence? No Neuro Other: balance- Normal Exam patient able to perform Romberg- Negative Normal Exam tandem walk test- Normal Exam patient able to perform walk-in turned test- Normal Exam patient able to perform rise from sit to stand- Normal Exam patient able to perform Results Reviewed Results Reviewed: Results - Labs and diagnostic tests deferred as blood work was completed six months ago. Assessment & Plan Assessment & Plan (1) Encounter for annual wellness visit (AWV) in Medicare patient: Code(s): Z00.00 - Encounter for general adult medical examination without abnormal findings Plan: Plan - Continue current medications for hypertension and atrial fibrillation. - Advise follow-up with cheesemaker helper Dr. Coronel in March for atrial fibrillation management. - Monitor respiratory symptoms, continue Mucinex, and reassess if symptoms worsen. - Maintain current treatment regimen for COPD with inhalers. - Stay up to date with vaccinations and preventative screenings as scheduled. - Review living will and health proxy status by checking records to ensure on file. Discussion Notes During the visit, we reviewed the patient's management plan for atrial fibrillation which includes continuing Eliquis. We discussed the importance of regular follow-up with the cheesemaker helper in six months. For her COPD, I advised continuing with Ursinex for morning cough management, ensuring the absence of concerning symptoms such as fever or bloody sputum. I emphasized the importance of maintaining vaccination schedules, particularly for respiratory conditions. 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 I encouraged staying proactive about her own health, including maintaining her current levels of activity and independence. Lastly, we discussed the need to verify that her living will and health proxy were on record with our facility. Patient Instructions: Patient Instructions - Continue taking prescribed medications as directed, including Eliquis, enalapril/hydrochlorothiazide. - Make sure to follow up with the cheesemaker helper on March 09 as previously scheduled. - Keep using inhalers and Mucinex for COPD management. - Stay current with vaccinations; no new vaccinations needed at this time. - Stay physically active through daily activities and caregiving duties. - Monitor respiratory symptoms; report any increase in cough or sputum changes. - Ensure living will and health proxy are updated and on file. Quality Reporting (2019) Adult ([facility] 138//) Smoking risk assessment performed?: Yes Patient Tobacco Use Status: Former Tobacco user Depression screening performed: Yes Recommended changes: alcohol moderation Systolic BP not done?: Yes Diastolic BP not done?: Yes BMI screening not done: Yes BMI Low - Follow Up: Yes Below normal medication not ordered Immunizations (CMS 147, 117) Annual Influenza Vaccine: Yes Fall Risk Screening ([facility] 139) Fall risk assessment: No Falls in past year Depression/Bipolar (159/160/161/177) PHQ-9: Total score: 0 Coding Level of Care Code Medicare Subsequent (G0439) Est Pt Level 4 (15151) Diagnoses Encounter for annual wellness visit (AWV) in Medicare patient Z00.00 CPT Codes Advance Care Planning - Advance Care Planning discussion: On file, no changes ([id number]) Additional Codes ABDIRASHID-7 Assessment Billing - ABDIRASHID-7 Assessment Tool: ABDIRASHID-7 Assessment 45376 ([id number]) Advance Care Planning Advance Care Planning discussion: On file, no changes
[2024-09-18 09:00] VITALS: BP 110/60; PULSE 77; O2SAT 93; BMI 26.0
== END 2024-09-18 09:41 | disposition home or self-care (01) ==
PROVIDERS: PCP Internal Medicine; Visit Provider Physician Assistant Medical
DX: Z00.00 Encounter for general adult medical examination without abnormal findings (principal); I48.91 Unspecified atrial fibrillation; J44.9 Chronic obstructive pulmonary disease, unspecified

== ENCOUNTER → 2024-09-18 08:51 | Outpatient (BNVA) | payer MEDICARE, SELFPAY | PROVIDERS: PCP Internal Medicine; Visit Provider Physician Assistant Medical | DX: Z00.00 Encounter for general adult medical examination without abnormal findings (principal); I10 Essential (primary) hypertension; I48.91 Unspecified atrial fibrillation; Z87.891 Personal history of nicotine dependence; Z79.01 Long term (current) use of anticoagulants | CPT/HCPCS: 96127; 99212 ==

== ENCOUNTER 2025-01-04 10:27 | Outpatient (AMB) | payer MEDICARE, SELFPAY ==
[2025-01-04 10:38] VITALS: BP 114/72; PULSE 67; RESP 16; TEMP 36.1; O2SAT 96; BMI 26.8
--- NOTE | 2025-01-04 10:38 | A.OFFPC_ITS ---
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 Accompanied by: Self / Same As Patient Allergies magnesium Allergy (Intermediate, Verified 01/04/25 11:28) upset stomach spinal anesthesia Adverse Reaction (Severe, Uncoded 01/04/25 11:28) neuromonic shock Medication List - Last Reconciled 01/04/25 by Jennifer Collins PA-C albuterol sulfate 90 mcg/actuation (ProAir HFA) 2 puffs inhalation Q6H PRN 30 days apixaban (Eliquis) 5 mg PO BID kjjzbrdhqn-gspkwyqa-qyuyjeevcx 160-9-4.8 mcg/actuation (Breztri Aerosphere) 2 inhalations inhalation ONCE cyclosporine 0.05% (Restasis) 1 drp ophthalmic (eye) Q12H docusate sodium 100 mg PO BEDTIME enalapril-hydrochlorothiazide 5-12.5 mg 1 tab PO DAILY mesalamine ER 1.5 grams (4 x 0.375 gram) PO QAM multivitamin 1 tab PO DAILY rosuvastatin 5 mg PO DAILY Tobacco use date assessed: 01/04/25 Fall risk assessment: No Falls in past year Last assessed Fall Risk: 01/04/25 Dental Screening Dental Screen Date: 01/04/25 Did you have a dental visit in the last 12 months?: Yes Did you have a dental problem in the last 6 months where you did not have access to dental care?: No Was dental information given to patient?: Patient has dentist [facility] Medical History (Updated 01/04/25 @ 13:17 by Jennifer Collins PA-C) Atrial fibrillation Follow-up exam, 3-6 months since previous exam Overweight with body mass index (BMI) of 26 to 26.9 in adult History of mammogram (~08/2024) Carpal tunnel syndrome of right wrist Colon cancer screening (~01/15/24) History of bone density study (~10/08/23) Breast cancer screening by mammogram (~11/19/24) Abnormal inflammatory bowel disease panel Peripheral neuropathy Diverticulosis Essential hypertension Tubular adenoma History of diverticulitis Osteopenia Screening for diabetes mellitus COPD (chronic obstructive pulmonary disease) Surgical History History of colonoscopy (~11/28/21) History of partial hysterectomy History of hip replacement History of appendectomy Family History Father No problems noted. Mother No problems noted. Social History Housing: House Are you a primary direct care counselor to a significant other at home: No Do you presently have visiting nurse or other home services: No Alcohol intake: current Alcohol intake frequency: 0-2 drinks per day Patient Tobacco Use Status: Former Tobacco user Tobacco use type: Cigarette e-Cigarette/Vaping Use: Never Used Second Hand Smoke Exposure: No service: No Current occupational status: retired Cognitive needs: No Hearing needs: No Vision needs: Yes (Contact lenses) Questionnaire PHQ-9 Over the last 2 weeks, how often have you been bothered by any of the following problems? 1. Little interest or pleasure in doing things: not at all 2. Feeling down, depressed, or hopeless: not at all 3. Trouble falling or staying asleep, or sleeping too much: not at all 4. Feeling tired or having little energy: not at all 5. Poor appetite or overeating: not at all 6. Feeling bad about yourself - or that you are a failure or have let yourself or your family down: not at all 7. Trouble concentrating on things, such as reading the newspaper or watching television: not at all 8. Moving or speaking so slowly that other people could have noticed. Or the opposite - being so fidgety or restless that you have been moving around a lot more than usual: not at all 9. Thoughts that you would be better off or of hurting yourself in some way: not at all Total score: 0 Depression Screening Interpretation: Negative Depression Screening Done: Yes 85060 - PHQ-9 Billing: Yes Source: Developed by Drs. Dm Medina, Sabrina Lora, Junito Iyer and colleagues, with an educational janessa from [employer]. Thrive Questionnaire Date Thrive assessed: 01/04/25 I am a: Patient What is your living situation today?: I have a steady place to live Within the past 12 months, did the food you bought not last and you didn't have the money to get more?: Never true Within the past 12 months, did you worry whether your food would run out before you got money to buy more?: Never true Do you have trouble paying for medicines?: No Do you have trouble getting transportation to medical appointments?: No Do you have trouble paying your heating and electricity bill?: No Do you have trouble taking care of your child, family member or friend?: No Do you have trouble with day-to-day activities such as bathing, preparing meals, shopping, managing finances, etc.?: No Are you currently unemployed and looking for a job?: No Are you interested in more education?: No Please select the resources that you would like help with: None Currently or been in a relationship where the following occur: No concerns reported THRIVE Score: 0 AUDIT C Alcohol Use Questionnaire (AUDIT-C) 1. How often do you have a drink containing alcohol?: 4 or more times a week 2. How many drinks containing alcohol do you have on a typical day when you are drinking?: 1 or 2 3. How often do you have six or more drinks on one occasion?: Never Total Score: 4 Score Reviewed/Action Taken: No ABDIRASHID-7 AMB Questionnaire ABDIRASHID-7 Date ABDIRASHID - 7 assessed: 01/04/25 Feeling nervous, anxious, or on edge: 0 = Not at all Not being able to stop or control worryin = Not at all Worrying too much about different things: 0 = Not at all Trouble relaxin = Not at all Being so restless that it is hard to sit still: 0 = Not at all Becoming easily annoyed or irritable: 0 = Not at all Feeling afraid as if something awful might happen: 0 = Not at all Total ABDIRASHID-7 score (0-4 normal; 5-9 mild; 10-14 moderate; 15-21 severe): 0 Source: Developed by Drs. Dm Medina, Sabrina Lora, Junito Iyer and colleagues, with an educational janessa from [employer] ABDIRASHID-7 Assessment Billing ABDIRASHID-7 Assessment Tool: ABDIRASHID-7 Assessment 30376 Physical exam (Primary Care) Vital Signs: Last Vital Signs Temp 96.9 F 01/04/25 10:38 Pulse 67 01/04/25 10:38 Resp 16 01/04/25 10:38 BP 114/72 01/04/25 10:38 Pulse Ox 96 01/04/25 10:38 Oxygen Delivery Method Room Air 01/04/25 10:38 Care Plan Goal for BP management: <130/80 at goal BMI result Body Mass Index 26.8 BMI Assessment/Plan discussion: High BMI High, discussed plan: lifestyle, weight reduction, dietary, physical activity and alcohol moderation Tobacco/Smoking Status: Tobacco use Status Tobacco use date assessed 01/04/25 01/04/25 10:41 Patient Tobacco Use Status Former Tobacco user 01/04/25 10:58 Tobacco use type Cigarette 01/04/25 10:58 e-Cigarette/Vaping Use Never Used 01/04/25 10:58 PHQ-9: PHQ-9 Score PHQ-9: Total score 0 01/04/25 11:30 Depression Screening Interpretation: Negative Thrive Assessment: Date of Thrive Assessment Date Thrive assessed 01/04/25 01/04/25 10:41 Currently or been in a relationship where the following occur: No concerns reported Coding Level of Care Code Est Pt Level 4 (21882) Complex EM visit Add On G2211 Diagnoses Follow-up exam, 3-6 months since previous exam Z09 Carpal tunnel syndrome of right wrist G56.01 Essential hypertension I10 Osteopenia M85.80 COPD (chronic obstructive pulmonary disease) J44.9 Hypercholesteremia E78.00 Overweight with body mass index (BMI) of 26 to 26.9 in adult E66.3; Z68.26 Atrial fibrillation I48.91 Additional Codes ABDIRASHID-7 Assessment Billing - ABDIRASHID-7 Assessment Tool: ABDIRASHID-7 Assessment 47598 ([id number]) PHQ-9 - 35954 - PHQ-9 Billing: Yes ([id number]) Assessment & Plan Assessment & Plan (1) Follow-up exam, 3-6 months since previous exam: Code(s): Z09 - Encounter for follow-up examination after completed treatment for conditions other than malignant neoplasm Category: Medical (2) Carpal tunnel syndrome of right wrist: Code(s): G56.01 - Carpal tunnel syndrome, right upper limb Category: Medical Plan: Positive tests confirm carpal tunnel syndrome on the right wrist. I've prescribed a wrist brace for nighttime use to minimize symptoms. An orthopedic referral will evaluate the need for potential surgical intervention. Benefits and risks of the brace and surgery were discussed. Condition is stable continue to monitor. (3) Essential hypertension: Code(s): I10 - Essential (primary) hypertension Category: Medical Plan: Blood pressure goal less than 130/80 at goal. Patient to continue Eliquis 5 mg b.i.d., enalapril-hydrochlorothiazide, 5-12.5 mg combo daily, rosuvastatin 5 mg daily. Condition is chronic and stable continue to monitor. (4) Osteopenia: Code(s): M85.80 - Other specified disorders of bone density and structure, unspecified site Category: Medical Plan: Patient to continue multivitamin [id number]-[id number]. Condition is chronic and stable continue to monitor. (5) COPD (chronic obstructive pulmonary disease): Comment: HAS CHRONIC OBSTRUCTIVE PULMONARY DISEASE, MODERATELY SEVERE, AND IT HAS REMAINED VERY STABLE OVER THE PAST FEW YEARS. CURRENTLY SHE IS ON BREZTRI 160-4.8 2 PUFFS B.I.D. BUT TAKING MOSTLY IN THE MORNING AND SKIPPING THE EVENING DOSE. SHE IS USING ALBUTEROL ONLY SPARINGLY. Code(s): J44.9 - Chronic obstructive pulmonary disease, unspecified Category: Medical Plan: COPD management with Breztri Aerosphere remains effective. No recent exacerbations. I emphasized medication adherence and avoidance of triggers. Condition is chronic and stable continue to monitor. (6) Hypercholesteremia: Code(s): E78.00 - Pure hypercholesterolemia, unspecified Category: Medical Plan: Patient to continue rosuvastatin 5 mg daily. Condition is chronic and stable continue to monitor. (7) Overweight with body mass index (BMI) of 26 to 26.9 in adult: Code(s): E66.3 - Overweight; Z68.26 - Body mass index [BMI] 26.0-26.9, adult Category: Medical Plan: Patient to improve her diet and exercise regimen. Condition is chronic and stable will continue to monitor. (8) Atrial fibrillation: Code(s): I48.91 - Unspecified atrial fibrillation Category: Medical Plan: The patient's atrial fibrillation is stable. Current management includes Eliquis 5 mg BID. I reiterated the importance of adherence to reduce stroke risk. Regular monitoring of symptoms will continue. Condition is chronic and stable continue to monitor. Plan Plan Patient was informed and verbally consented to the use of an ambient scribe for clinic note documentation during this visit. 1. Chronic Obstructive Pulmonary Disease Copd COPD management with [employer] remains effective. No recent exacerbations. I emphasized medication adherence and avoidance of triggers. 2. Carpal Tunnel Syndrome Positive tests confirm carpal tunnel syndrome on the right wrist. I've prescribed a wrist brace for nighttime use to minimize symptoms. An orthopedic referral will evaluate the need for potential surgical intervention. Benefits and risks of the brace and surgery were discussed. 3. Atrial Fibrillation The patient's atrial fibrillation is stable. Current management includes Eliquis 5 mg BID. I reiterated the importance of adherence to reduce stroke risk. Regular monitoring of symptoms will continue. Discussion Notes I discussed with the patient that her symptoms and positive tests are consistent with carpal tunnel syndrome. I recommended wearing a wrist brace at night to alleviate symptoms. Surgical options were outlined should conservative management prove insufficient, with discussion on the risks and benefits. For her atrial fibrillation, I confirmed it remained stable under Eliquis and stressed the importance of medication adherence to prevent complications. The patient?s COPD is well-managed with prescribed inhalers; no further exacerbat ions were noted. Preventative care with regular screenings and monitoring was advised. Orders: Orders Complete Blood Count Auto Diff Today Jennifer Collins PA-C Z00.00 - Encounter for general adult medical examination without abnormal findings Comprehensive [place]. Panel Fast Today Jennifer Collins PA-C Z00.00 - Encounter for general adult medical examination without abnormal findings Erythrocyte Sedimentation Rate Today Jennifer Collins PA-C Z00.00 - Encounter for general adult medical examination without abnormal findings Magnesium Today Jennifer Collins PA-C Z00.00 - Encounter for general adult medical examination without abnormal findings Lipid Panel Today Jennifer Collins PA-C Z00.00 - Encounter for general adult medical examination without abnormal findings Liver Panel Today Jennifer Collins PA-C Z00.00 - Encounter for general adult medical examination without abnormal findings Hemoglobin A1c Today Jennifer Collins PA-C Z00.00 - Encounter for general adult medical examination without abnormal findings C Reactive Protein Today Jennifer Collins PA-C Z00.00 - Encounter for general adult medical examination without abnormal findings Vitamin D 25-OH Total Today Jennifer Collins PA-C Z00.00 - Encounter for general adult medical examination without abnormal findings Vitamin B12 and Folate Today Jennifer Collins PA-C Z00.00 - Encounter for general adult medical examination without abnormal findings TSH reflex Free T4 Today Jennifer Collins PA-C Z00.00 - Encounter for general adult medical examination without abnormal findings Referrals Orthopedics Referral Jennifer Collins PA-C G56.01 - Carpal tunnel syndrome, right upper limb Medications: Changed From hgnfsengcz-uwjvnpbl-guatuvptct 160-9-4.8 mcg/actuation (Breztri Aerosphere) 2 inhalations inhalation BID 30 days 10.7 grams 4RF COPD To cxnemdxfgt-zhtebtdb-iqgsummzgz 160-9-4.8 mcg/actuation (Breztri Aerosphere) 2 inhalations inhalation ONCE COPD Trang James MD Patient Instructions: Patient Instructions - Wear the wrist brace at night to reduce symptoms of carpal tunnel syndrome. - Attend follow-up with orthopedics when scheduled for potential surgical interventions. - Continue all medications as prescribed, including Eliquis and COPD inhalers. - Monitor for new or worsening symptoms of atrial fibrillation and COPD. - Get follow-up blood tests when convenient, fast if possible. - Schedule a six-month follow-up appointment. - Maintain activity as tolerated and avoid known respiratory irritants. Scribe Plan - Not visible on output: History of Present Illness The patient is a 79-year-old female presenting for a six-month follow-up for her chronic medical conditions which include obesity, peripheral neuropathy, diverticulosis, essential hypertension, hypercholesterolemia, IBS, COPD and osteopenia. In addition she would like to discuss right wrist pain/numbness to her 1st 3 digits usually worse when she wakes up. This is symptoms suggestive of carpal tunnel syndrome in the right hand. 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 Symptoms were first noted prior to her last visit and have been present consistently. There is no similar involvement of the left hand or lower extremities. Social History - Exercise: Engages in walking but limited due to weather conditions. - Family: Lives with who is undergoing a period of post-transplant isolation, influencing their social interactions and travel plans. Review of Systems - Musculoskeletal: Reports no joint pain or swelling. - Cardiovascular: Denies chest pain, irregular heartbeat at present. - Genitourinary: Denies blood in urine. - Gastrointestinal: Denies black or bloody stools, constipation reported occasionally. Physical Exam Appearance: Alert. Oriented X3. No acute distress. Head: Normal external exam. Normocephalic. Atraumatic. Eyes: Pupils are equal, round, and reactive to light. Extraocular movements intact. Conjunctiva and sclera normal. Eyelids normal. Ears: External auditory canal normal. Tympanic membranes normal. Throat: Pharynx normal. Uvula midline. Moist mucous membranes. Neck: Normal inspection. Neck supple. Full range of motion. No adenopathy. Thyroid Normal. No meningeal signs. No neck mass noted. Cardiovascular: Normal heart rate and rhythm. Heart sound normal. No murmurs noted. Pulses normal throughout. Respiratory: No respiratory distress. Painless inspiration. Breath sounds normal. No wheezes/rales/rhonchi noted. Chest nontender. No accessory muscle usage noted or decreased air movement noted. Abdomen: Soft and nontender. Bowel sounds normal in all 4 quadrants. No distention noted. No organomegaly noted. No visible injury noted. Back: No costovertebral angle tenderness. Full range of motion noted. Skin: Skin warm and dry. Normal skin color. Normal skin turgor. No rashes/lesions/lacerations noted. Extremities: No lower extremity edema. Extremities exhibit normal range of motion. Extremities nontender. Neuro: Oriented X 3. No motor deficit. No sensory deficit. Positive Tinel's test and positive Prayer's test indicating carpal tunnel syndrome of the right wrist. Reflexes normal. Results - Labs: Previous blood work in May showed slightly low red blood cells (3.99), with normal white blood cell count (4.5), kidney function, glucose levels, liver enzymes, and thyroid function. - Screening: Normal mammogram (August 2024), Normal DEXA scan (October previous year).
== END 2025-01-04 11:22 | disposition home or self-care (01) ==
LOC: HO.HMCH 10:28
PROVIDERS: PCP Internal Medicine; Visit Provider Physician Assistant Medical
DX: Z09 Encounter for follow-up examination after completed treatment for conditions other than malignant neoplasm (principal); G56.01 Carpal tunnel syndrome, right upper limb; I10 Essential (primary) hypertension; M85.80 Other specified disorders of bone density and structure, unspecified site; J44.9 Chronic obstructive pulmonary disease, unspecified; E78.00 Pure hypercholesterolemia, unspecified; E66.3 Overweight; Z68.26 Body mass index [BMI] 26.0-26.9, adult; I48.91 Unspecified atrial fibrillation

== ENCOUNTER → 2025-01-04 10:27 | Outpatient (BNVA) | payer MEDICARE, SELFPAY | PROVIDERS: PCP Internal Medicine; Visit Provider Physician Assistant Medical | DX: G56.01 Carpal tunnel syndrome, right upper limb (principal); I10 Essential (primary) hypertension; M85.80 Other specified disorders of bone density and structure, unspecified site; J44.9 Chronic obstructive pulmonary disease, unspecified; E78.00 Pure hypercholesterolemia, unspecified; E66.3 Overweight; I48.91 Unspecified atrial fibrillation; Z09 Encounter for follow-up examination after completed treatment for conditions other than malignant neoplasm; Z68.26 Body mass index [BMI] 26.0-26.9, adult | CPT/HCPCS: 96127; 99212 ==

== ENCOUNTER 2025-01-10 08:32 | Outpatient (REF) | payer MEDICARE, SELFPAY ==
[2025-01-10 08:47] LABS: MANUAL DIFF FLAG NO
[2025-01-10 09:24] LABS: Basophils Percent Auto 0.8 % (0-2); Eosinophils Absolute Auto 0.3 X10*3/uL (0.0-0.4); Eosinophils Percent Auto 6.2 % (0-4); Hematocrit 41.7 % (37.0-47.0); Hemoglobin 13.2 g/dl (12.0-16.0); Imm Gran Abs Auto 0.01 X10*3/uL (0.00-0.03); Imm Gran Pct Auto 0.2 % (0.0-0.4); Lymphocytes Absolute Auto 1.9 X10*3/uL (1.2-4.9); Mean Corpuscular HGB Conc 31.7 g/dl (31.0-35.0); Mean Corpuscular Hemoglobin 30.2 pg (27.0-33.0); Mean Corpuscular Volume 95.4 fL (80.0-98.0); Mean Platelet Volume 10.3 fL (9.4-12.3); Monocytes Absolute Auto 0.4 X10*3/uL (0.1-1.2); Monocytes Percent Auto 8.2 % (2-11); Neutrophils Absolute Auto 2.3 x10*3/uL (2.0-8.3); Neutrophils Percent Auto 46.6 % (45-73); Platelet Count 180 X10*3/uL (160-400); Red Blood Count 4.37 X10*6/uL (4.20-5.50); Red Cell Distribution Width 13.2 % (11.0-16.0); White Blood Count 4.9 X10*3/uL (4.8-10.8)
[2025-01-10 09:40] LABS: Estimated Average Glucose 114 mg/dL; Hemoglobin A1c % 5.6 % (<6.0); Total Hemoglobin (HGBA1C) 3589.4101 umol/L
[2025-01-10 10:02] LABS: Alanine Aminotransferase 20 U/L (0-31); Albumin Level 4.3 g/dL (3.5-5.0); Alkaline Phosphatase 67 U/L (39-117); Anion Gap 10 (12-20); Aspartate Amino Transferase 25 U/L (5-31); Bilirubin Direct 0.3 mg/dL (0.0-0.5); Bilirubin Total 1.2 mg/dL (0.0-1.0); Blood Urea Nitrogen 21 mg/dL (9-16); C Reactive Protein 0.12 mg/dL (< or = 0.50); Calcium 9.7 mg/dL (8.4-10.2); Carbon Dioxide 28 mmol/L (22-29); Chloride 108 mmol/L (96-108); Cholesterol 210 mg/dL (<200); Estimated Glomerular Filt Rate > 60; Glucose Fasting 101 mg/dL (60-99); HDL Cholesterol 53 mg/dL (>40); LDL Cholesterol Calculated 110 mg/dL (<100); Magnesium 2.1 mg/dL (1.6-2.6); Potassium 4.1 mmol/L (3.3-5.1); Sodium 142 mmol/L (135-145); Total Protein 7.1 g/dL (6.5-8.0); Triglycerides 237 mg/dL (<150)
[2025-01-10 10:15] LABS: Erythrocyte Sedimentation Rate 13 MM/HR (0-20)
[2025-01-10 10:23] LABS: Folate 13.8 ng/mL (> or = 4.0); Vitamin B12 437 pg/mL (200-900)
[2025-01-10 10:24] LABS: TSH reflex Free T4 3.42 uIU/mL (0.32-4.0); Vitamin D 25-OH Total 46.1 ng/mL (>30)
== END 2025-01-10 08:33 | disposition home or self-care (01) ==
LOC: HO.LAB 08:32
PROVIDERS: PCP Internal Medicine; Visit Provider Physician Assistant Medical
DX: Z00.00 Encounter for general adult medical examination without abnormal findings (principal); Z13.1 Encounter for screening for diabetes mellitus; Z13.6 Encounter for screening for cardiovascular disorders
CPT/HCPCS: 36415; 80053; 80061; 80076; 82248; 82306; 82607; 82746; 83036; 83735; 84443; 85025; 85652; 86140

== ENCOUNTER 2025-03-14 13:16 | Outpatient (REF) | payer MEDICARE, SELFPAY ==
--- NOTE | 2025-03-14 13:19 | EMG_ITS ---
Chief complaint: Numbness of right 1st to 3rd digits, denies neck pain Reason for referral: Evaluate for Carpal Tunnel Syndrome Referred by: Fabian JEREZ Procedure done: Right upper extremity NCS/EMG Precautions and/or limitations: She has been off Eliquis for the last 5 days The limb temperature was monitored continuously and remained between 32-36 degrees C during the performance of the NCS. Nerve Conduction Studies Anti Sensory Summary Table ?Stim Site NR Onset (ms) Norm Onset (ms) Peak (ms) Norm Peak (ms) O-P Amp (?V) Norm O-P Amp Site1 Site2 Delta-0 (ms) Dist (cm) Zeyad (m/s) Norm Zeyad (m/s) Right Median Anti Sensory (2nd Digit) Wrist NR <3.6 >10 Wrist 2nd Digit 14.0 Right Radial Anti Sensory (Thumb) Forearm ? 1.7 2.1 <3.1 19.6 Forearm Thumb 1.7 0.0 Right Ulnar Anti Sensory (5th Digit) Wrist ? 2.5 3.3 <3.7 23.0 >15.0 Wrist 5th Digit 2.5 14.0 56 Motor Summary Table ?Stim Site NR Onset (ms) Norm Onset (ms) O-P Amp (mV) Norm O-P Amp iAmp (mV) Amp (1st) (%) Site1 Site2 Delta-0 (ms) Dist (cm) Zeyad (m/s) Norm Zeyad (m/s) Right Median Motor (Abd Poll Brev) Wrist NR <3.9 >4.5 Elbow Wrist 0.0 >45 Elbow NR Right Ulnar Motor (Abd Dig Minimi) Wrist ? 3.0 <3.0 11.6 >5 13.7 100.0 B Elbow Wrist 2.9 19.0 66 >45 B Elbow ? 5.9 10.7 12.7 92.2 A Elbow B Elbow 1.0 10.0 100 >45 A Elbow ? 6.9 9.7 11.8 83.6 EMG ?Side Muscle Nerve Root Ins Act Fibs Psw Amp Dur Poly Recrt Int Pat Comment Right 1stDorInt Ulnar C8-T1 Nml Nml Nml Nml Nml 0 Nml Complete Right FlexCarRad Median C6-7 Nml Nml Nml Nml Nml 0 Nml Complete Right Biceps Musculocut C5-6 Nml Nml Nml Nml Nml 0 Nml Complete Right Triceps Radial C6-7-8 Nml Nml Nml Nml Nml 0 Nml Complete Right Deltoid Axillary C5-6 Nml Nml Nml Nml Nml 0 Nml Complete FINDINGS: Right median motor nerve showed absent response. Right median sensory nerve showed absent response. All other nerves tested were within normal. Concentric needle EMG was performed in selected muscles of the right upper extremity. Study revealed signs of electric abnormalities as shown in the table above. IMPRESSION: 1. This is an abnormal study. 2. There is electrodiagnostic evidence for bilateral severe median neuropathy at the wrist, consistent with carpal tunnel syndrome. 3. There is no electrodiagnostic evidence for ulnar neuropathy, brachial plexopathy, or cervical radiculopathy. Thank you for your kind referral. Sariah Byrd MD, BARBRA Board Certified, [place] [employer] and [employer] (ABPMR) Board Certified, [place] [employer] Electrodiagnostic [employer] (ABEM) CODIN [id number] MTDD
--- OUTSIDE RECORDS SUMMARY | 2025-03-14 14:59 | XMS_ITS | Data Portability ---
Author Organization [facility], [facility] Address [address] [place] [address] Care Team Providers Care Guest Services Associate Name Role Phone THI SUÁREZ Referring Provider [phone] THI SUÁREZ Primary Care Provider [phone] Assessment Encounter Date Assessment Date Assessment LastModified by Organization Details LastModified Time 05/04/2024 05/04/2024 History: Patient is a 78-year-old female who presents to me for initial evaluation of primarily right sided knee pain. She has had knee pain for greater than one year. Cortisone and gel injections did not provide significant relief. She is losing significant range of motion. Takes Tylenol and ibuprofen for discomfort. She reports pain at rest and significant limitations in activities including difficulty with stairs and getting out of a chair. Unable to kneel or squat. Does report a limp. PMH/PSH/MEDS/ALL/FM H/SOC HX/ROS are reviewed in detail per my medical intake sheet. Of note: High cholesterol, asthma, bilateral hips by me in 2005 and 2006 General Exam: Vital signs are as noted below Mental status: Alert and lucid. Normal insight, affect and grooming. TAILING HAND: Gross motor coordination is intact. No spasticity or clonus noted. Extremities: Calves are soft nontender, skin intact Orthopedic Examination: Right Knee: Neutral alignment. Range of motion quite limited 5-90? ? ?. Severe tenderness and crepitus throughout. No instability. Mild effusion. Left Knee: Neutral alignment. Range of motion 5-110. Moderate tenderness and crepitus throughout. No instability. Mild effusion. Antalgic gait pattern favoring the right side. Full strength and sensation distally X-rays: Radiographs reviewed from her previous visit including a standing AP, Robles view, nonweightbearing lateral views, and merchant view. These radiographs demonstrate end-stage osteoarthrits of the bilateral knees. There is ipgp-na-qhbu articulation, subchondral sclerosis, and osteophyte formation. Assessment: End-stage osteoarthritis of the right knee which has failed greater than 3 months of nonoperative treatment including medication, activity modification, and injections. The patient is in too much discomfort to participate in any meaningful physical therapy. PLAN: The patient was thoroughly counseled today regarding their knee condition, its natural history and the options, both operative and non-operative. The nature of knee replacement surgery, the potential risks, benefits, and complications, the magnitude of the surgery, the intensity of postoperative recovery as well as its elective nature were explained at length today. Although it is impossible to list all of the possible complications of any operation or procedure, I explained that some of the major complications that may arise include the following: Blood loss requiring transfusion, infection (early or late), blood clots, dislocation, pain (persistent or new), scars numbness or tenderness, unequal leg lengths, weakness, stiffness, loss of motion, clicking of implant, calcification, fracture of bone, instability of leg, nerve damage (paralysis or numbness), blood vessel damage, implant loosening, implant breakage, wearing of the implant, need for future surgery, allergic reaction, metal toxicity, medical complications including confusion, heart attack, stroke, or ). Issues regarding lifelong infection and activity precautions were reviewed. The longevity of the implants was discussed. The patient understands the potential need for revision surgery. We discussed performing the surgery in either an inpatient or outpatient setting as well as the pros and cons of both. The patient has elected to proceed in a inpatient setting. The patient understands that they are at potential increased risk of arthrofibrosis due to her limited preoperative range of motion The patient will require clearance from a medical doctor prior to surgery. The patient wishes to schedule an elective total knee replacement at this time. Next planned follow-up is at the history and physical. The patient knows I will be happy to meet with them at any time in order to review any additional questions or concerns that they might have. [email or web address] Not available 05/04/2024 12:33:50 05/18/2024 05/18/2024 Assessment: Abiola ent presents with symptoms that are consistent with knee OA. Demonstrates good understanding of home program, post-operative mechanics for gait and stairs, and expectations following surgery. Plan: Discharge patient to knee OA [facility]. Follow up with patient post-operatively. [email or web address] Not available 05/17/2024 21:30:04 05/29/2024 05/29/2024 PRIMARY DIAGNOSI S: Osteoarthritis of the right knee. REASON FOR ADMISSION: The patient is being admitted for right total knee arthroplasty by Dr. Neely on 06/02/2024. HISTORY OF PRESENT ILLNESS: Ms. Maria is a pleasant 78-year-old female who presents today for surgical history and physical prior to undergoing a right total knee arthroplasty with Dr. Neely on 06/02/2024. She has a longstanding history of right knee osteoarthritis and has undergone a lengthy course of conservative management with generalized failure of nonsurgical options. Her pain is severe and worsens with activity, has gotten to the point where significantly interfering with her ability to perform activities of daily living as well as daily social tasks. She is now interested in pursuing a right total knee arthroplasty with Dr. Neeyl. PAST MEDICAL HISTORY: 1. Osteoarthritis of the right knee. 2. Hypertension. 3. Hyperlipidemia. 4. Asthma. 5. Diverticulitis with her most recent GI flare 4-5 months ago. 6. Varicose veins. 7. Sciatica. 8. GERD. PAST SURGICAL HISTORY: 1. Left hip arthroplasty [place] [address] Neely. 2. Right hip arthroplasty [place] [address] Neely. 3. Appendectomy. CURRENT MEDICATIONS: 1. Albuterol inhaler 90 mcg as needed. 2. Amoxicillin 2 tablets prior to a dental procedure. 3. Breztri inhaler 2 puffs daily in the morning. 4. Restasis eyedrop b.i.d. 5. Dulcolax 100 mg at bedtime. 6. Enalapril-hydrochlo rothiazide 5 mg-12.5 mg tablet daily in the morning. 7. Mesalamine 0.375, she takes 4 tablets in the morning. 8. Rosuvastatin 5 mg daily in the morning. ALLERGIES: MAGNESIUM, which causes nausea and vomiting. SOCIAL HISTORY: She is . She states that she has approximately 1 alcoholic beverage a day. She is a former smoker and quit in 1979 and she denies illicit drug use. PHYSICIANS: The patient's primary care physician is Dr. 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 Lindsey. REVIEW OF SYSTEMS: The patient's 12-point review of systems negative unless mentioned in HPI. PHYSICAL EXAMINATION: VITAL SIGNS: Weight is 149 pounds. GENERAL: Alert and oriented. Normal insight, affect, and grooming. SKIN: Intact without rash or lesions. Nails without clubbing or cyanosis. HEENT: Normocephalic. Conjunctivae pink. Sclerae are anicteric. NECK: Supple. Trachea midline. No lymphadenopathy. LUNGS: Clear to auscultation bilaterally. Breathing is unlabored. HEART: Regular rate and rhythm, normal S1, S2. No murmurs, rubs or gallops appreciated. ABDOMEN: Soft, nontender. ORTHOPEDIC: Right knee with neutral alignment. Range of motion quite limited at 5-90 degrees. Severe tenderness and crepitus throughout, no instability, mild effusion. Left knee, neutral alignment, range of motion 5-110 degrees. There is moderate tenderness and crepitus throughout, no instability. Mild effusion. She has an antalgic gait pattern favoring the right side. There is full strength and sensation distally. There is 2+ dorsalis pedis pulse. PREOPERATIVE DIAGNOSTIC DATA: Orthopedic x-rays demonstrate end-stage osteoarthritis of the bilateral knees. There is sytl-wp-nply articulation, subchondral sclerosis and osteophyte formation. Preoperative EKG shows sinus rhythm with premature atrial complexes, heart rate was 62. PREOPERATIVE LABORATORY DATA: CBC, coags and chemistries were reviewed and are satisfactory for surgery. Her glucose level is 105 with a hemoglobin A1c of 5.9. Her BUN was 24. Her GFR was 65. ASSESSMENT AND PLAN: The patient has advanced osteoarthritis of the right knee and is now scheduled for right total knee arthroplasty with Dr. Neely on 06/02/2024. She was seen by the medicine preop clinic, who deemed her to be a low cardiovascular and a low pulmonary risk. There are no medical contraindications identified with proceeding with procedure. She will receive IV TXA and be placed on Eliquis 2.5 mg b.i.d. x30 days for DVT prophylaxis due to recent flare of diverticulitis. We will monitor point of cares and order sliding scale insulin when needed. She will not receive Celebrex due to recent GI flare. Discharge plan has been home with services. She will be admitted overnight after surgery. She has been counseled regarding the risks and benefits of the proposed procedure. Questions have been answered and she acknowledges understanding. The patient wished to proceed with a right total knee arthroplasty with Dr. Neely. CONTACTS: Her , Feng at [phone]. Prescriptions given at the time of the history and physical include none. She will require prescription for Colace, Eliquis, pantoprazole and pain medication at the time of discharge. [email or web address] Not available 05/29/2024 14:45:10 Plan of Treatment Reminders Order Date Submit Date Provider Last Modified By Organization Details Last Modified Time Details Appointments None record ed. Lab None record ed. Referral None record ed. Procedures None record ed. Surgeries None record ed. Imaging None record ed. Medication Orders None record ed. Patient TargetsNo targets recorded. Patient InstructionsNo instructions recorded. Reason for Referral None Reported. Results Created Date Observation Date Name Description Value Unit Range Abnormal Flag Note LastModifiedBy Organization Detail LastModifiedTime 06/02/20 24 06/02/2024 XR, chest No observ ation record ed. [facility] [address] [place], [address], 06/03/2024 08:01:45 Result Notes None recorded. Problems Name Problem SNOMED Code Status Onset Date Resolution Date Notes Provider Name and Address Organization Details Recorded Time Osteoarthri tis of right knee joint 6488396482323 00 Active 2024 Gina Perez PA-C [email or web address], [place], [address], [facility] 5 09:47:35 Problem Notes None recorded. Procedures Surgical History Date Name Laterality Status Provider Name and Address Organization Details Recorded Time 5 Gel-One Knee Injection completed Gina Perez PA-C [address], [place], [address], [facility] 02/21/2025 09:48:25 4 Gel-One Knee Injection completed Gina Perez PA-C [address], [place], [address], [facility] 07/26/2024 09:53:21 4 23363 Therapeutic Exercise (1:1) completed Alejandro Ellis, PT [address], [place], [address], [facility] 05/17/2024 21:28:27 4 06181: Low complexity PT Eval completed Alejandro Ellis, PT [address], [place], [address], [facility] 05/17/2024 21:28:29 4 G8417 BMI Above Upper Parameters, F/U Documented completed Alejandro Ellis, PT [address], [place], [address], [facility] 05/17/2024 21:28:34 4 G8427 Current Medication Documented completed Alejandro Ellis, PT [address], [place], [address], [facility] 05/17/2024 21:28:53 4 Gel-One Knee Injection completed Laz Atkins PA-C [address] [facility], [place], [address], [facility] 01/18/2024 16:54:48 4 Sports Knee 4&1 completed Laz Atkins PA-C [address], [place], [address], [facility] 12/27/2023 11:19:20 Imaging Results None recorded. Procedure Notes None recorded. Medical Equipment None Reported. Allergies Allergen ID Allergen Name Allergen Category Reaction Reaction Severity Criticality Documentation Date Start Date Code Code System Note Provider Name and Address Organization Details Recorded Time 835288 magnesium medicatio n Not available Not available Not available 05/04/2024 6574 [facility] 10:37:01 Medications Name Sig Start Date Stop Date Status Note LastModified by Organization Details LastModified Time amoxicillin 500 mg capsule TAKE 4 CAPSULES BY MOUTH 1 HOUR BEFORE DIRECTED BY 05/04 completed Not Available Not Available Not Available senna 8.6 mg tablet TAKE 1 TABLET BY MOUTH EVERY DAY AT BEDTIME FOR CONSTIPAT ION 12/26 completed Not Available Not Available Not Available enalapril 5 mg-hydrochl orothiazide 12.5 mg tablet TAKE 1 TABLET BY MOUTH EVERY DAY active Not Available Not Available No t Available metronidazo le 500 mg tablet 500 MG ORALLY 3 TIMES A DAY 12/26 completed Not Available Not Available Not Available ciprofloxac in 500 mg tablet TAKE 1 TABLET (500 MG) BY MOUTH 2 TIMES A DAY active Not Available Not Available No t Available amoxicillin 875 mg tablet TAKE 1 TABLET BY MOUTH TWICE A DAY UNTIL FINISHED 05/04 completed Not Available Not Available Not Available cephalexin 500 mg capsule TAKE 1 CAPSULE BY MOUTH 4 TIMES A DAY FOR 7 DAYS active Not Available Not Available No t Available levofloxaci n 750 mg tablet TAKE 1 TABLET BY MOUTH EVERY DAY 05/04 completed Not Available Not Available Not Available ondansetron 4 mg disintegrat ing tablet TAKE 1 TABLET EVERY 8 HOURS NEEDED FOR NASUEA AND VOMITING 12/26 completed Not Available Not Available Not Available amoxicillin 875 mg-potassiu m clavulanate 125 mg tablet TAKE 1 TABLET BY MOUTH TWICE A DAY FOR 7 DAYS active Not Available Not Available No t Available oxycodone 5 mg tablet TAKE 1 TABLET BY MOUTH EVERY 6 HOURS NEEDED FOR MODERATE PAIN active Not Available Not Available No t Available Laxative (bisacodyl) 5 mg tablet,fanny yed release TAKE 2 TABLETS BY MOUTH AT NOON THE DAY BEFORE YOUR COLONOSCO PY 12/26 completed Not Available Not Available Not Available Restasis 0.05 % eye drops in a dropperette INSTILL 1 DROP INTO BOTH EYES TWICE DAILY NEEDED active Not Available Not Available No t Available rosuvastati n 5 mg tablet TAKE 1 TABLET BY MOUTH EVERY DAY active Not Available Not Available No t Available Symbicort 160 mcg-4.5 mcg/actuati on HFA aerosol inhaler TAKE 2 PUFFS 2 TIMES A DAY 05/04 completed Not Available Not Available Not Available mesalamine ER 0.375 gram capsule,ext ended release 24 hr TAKE 4 CAPSULES BY MOUTH EVERY AM active Not Available Not Available No t Available Gavilax 17 gram/dose oral powder MIX 238 GRAMS ORALLY ONCE DIRECTED BY [facility] EROLOGY DEPARTMEN T AT [facility] 05/04 completed Not Available Not Available Not Available Eliquis 5 mg tablet TAKE 1 TABLET BY MOUTH TWICE A DAY FOR 30 DAYS active Not Available Not Available No t Available albuterol sulf 90 mcg/actuati on breath activated powder inhaler,sen sor Inhale 2 puffs every 4 hours by inhalatio n route. active Not Available Not Available No t Available Breztri Aerosphere 160 mcg-9mcg-4. 8mcg/actuat ion HFA aerosol inhaler INHALE 2 PUFFS 2 TIMES A DAY FOR COPD FOR 30 DAYS active Not Available Not Available No t Available Paxlovid 300 mg (150 mg x 2)-100 mg tablets in a dose pack TAKE 2 TABLETS (NIRMATRE LVIR) AND TAKE 1 TABLET (RITONAVI R) BY MOUTH TWICE A DAY FOR 5 DAYS active Not Available Not Available No t Available Vitals Date Recorded Body height Body mass index (BMI) Body weight Provider Name and Address Organization Details Last Updated DateTime 02/21/2025 159.39 cm 26.6 kg/m2 66539.26 g [facility] 02/21/2025 09:04:14 Date Recorded Body height Body mass index (BMI) Body weight Provider Name and Address Organization Details Last Updated DateTime 05/04/2024 159.39 cm 26.8 kg/m2 86939.86 g DESTINEY SHAH [facility] 05/04/2024 10:36:26 Date Recorded Body height Body mass index (BMI) Body weight Provider Name and Address Organization Details Last Updated DateTime 05/29/2024 159.39 cm 26.6 kg/m2 24866.26 g NAPOLEON KAUR [facility] 05/29/2024 11:32:02 Date Recorded Body height Body mass index (BMI) Body weight Provider Name and Address Organization Details Last Updated DateTime 07/26/2024 159.39 cm 26.6 kg/m2 40079.26 g [facility] 07/26/2024 09:21:16 Social History Question Answer Notes LastModified by Organizat ion Details LastModified Time Tobacco Smoking Status Never Smoker MADELAINE hunt [facility] 12/27/2023 08:51:44 Have You Ever Been Counseled For Unhealthy Alcohol Use? No Information not available 12/27/2023 Sex: Unknown Functional Status Question Answer Note LastModified by Organizat ion Details LastModified Time How many times per week do you consume alcohol? 1-2 times per week Information not available 12/27/2023 Do you use any illicit or recreational drugs? No [email or web address] Information not available 12/27/2023 Do you or have you ever used any other forms of tobacco or nicotine? No [email or web address] Information not available 12/27/2023 What is your level of alcohol consumption? Occasional [email or web address] Information not available 12/27/2023 Mental Status None recorded. Family History Nothing Reported. Medical History No medical history recorded. Gynecological HistoryNo gynecological history recorded. Obstetrics History GPAL:G 0 P 0 0 0 0 Past Encounters Encounter ID Performer Location Encounter Start Date Encounter Closed Date Diagnosis/Indication Diagnosis SNOMED-CT Code Diagnosis ICD10 Code Diagnosis Note [id number] JERMAINE Farris [address] [place] [address] 12/27/2023 08:15:04 12/27/2023 09:22:24 Pain of right knee joint 5886773860 87933 M25.561 Osteoarthr itis of right knee joint 6588993538 41124 M17.11 [id number] JERMAINE Farris [address] [place] [address] 01/18/2024 16:26:06 01/28/2024 09:03:56 Osteoarthritis of right knee joint 1136320409 00197 M17.11 [id number] JERMAINE Pineda [address] [place] [address] 03/20/2024 11:07:04 04/18/2024 14:36:24 Osteoarthritis of right knee joint 9277040389 23288 M17.11 [id number] Fabian Neely MD [address] [place] [address] 05/04/2024 10:29:07 05/26/2024 09:24:38 Osteoarthritis of right knee joint 9506467672 63490 M17.11 [id number] Alejandro Pyser, PT [facility] [address] [place] [address] 05/18/2024 13:11:02 05/18/2024 14:57:47 Osteoarthritis of knee 713058118 M17.11 [id number] Kenneth Quintero, SOLAR LAB TECHNICIAN [facility] [address] [place] [address] 05/29/2024 11:20:11 06/15/2024 18:35:32 [id number] Gina Perez PA-C [facility] [address] [place] [address] 07/26/2024 09:08:08 08/18/2024 10:37:29 Osteoarthritis of right knee joint 4027690314 34715 M17.11 [id number] Gina Perez PA-C [facility] [address] [place] [address] 02/21/2025 09:00:22 03/02/2025 12:18:48 Osteoarthritis of right knee joint 0295846317 46972 M17.11 Health Concerns Section Related Observation LastModified by Organization Detai ls LastModified Time None Recorded Concern Status LastModified by Organization Details LastModified Time None Recorded Advance Directives Directive None Recorded Payers Encounter Date Sequence Insurance Name Policy Number Policy Christie Covered Member ID Christie Member ID Guarantor Name 05/04/2024 2 [place] [id number] Laura P Bourbeau [id number] Laura Bourbeau 05/04/2024 1 [place] Laura P Bourbeau [id number] Laura Bourbeau 05/18/2024 2 [place] [id number] Laura P Bourbeau [id number] Laura Bourbeau 05/18/2024 1 [place] Laura P Bourbeau [id number] Laura Bourbeau 05/29/2024 2 [place] [id number] Laura P Bourbeau [id number] Laura Bourbeau 05/29/2024 1 [place] Laura Molina Bourbeau [id number] Laura Bourbeau 07/26/2024 2 [place] [id number] Laura P Bourbeau [id number] Laura Bourbeau 07/26/2024 1 [place] Laura P Bourbeau [id number] Laura Bourbeau 02/21/2025 2 [place] [id number] Laura P Bourbeau [id number] Laura Bourbeau 02/21/2025 1 [place] Laura Molina Bourbeau [id number] Laura Bourbeau Notes Date Note Type Note Provider Name and Address Organization Details Recorded Time 05/18/2024 text/html Patient is 78 ye ar old female, pain started in April 2023 without any specific inciting events or injuries. Presents today for prehab visit for scheduled R TKA on 06/02/24. Arrives today ambulating with no AD. Reviewed post-operative mobility and mechanics with appropriate assistive device. Has 4 steps into home and 12 steps inside home. Demonstrates good understanding of post-operative expectations and HEP. Current vocational status is...RetiredFunction al limitations include restricted knee ROM, difficulty ambulating community distances, and pain navigating stairs. Patient goal is to resume gardening, shop, pain free car transfers, and housework w/o pain. Watch grandchildren sports, walk on beach. H/o B THR: R 2005, L 2007, Excellent Results Alejandro Ellis, PT [address], [place], [address], [place] [facility] 05/18/2024 15:07:08 07/26/2024 text/html I am seeing the patient today under the supervision of Dr. Agustin who was available but who did not see the patient. HPI: Patient presenting today with known osteoarthritis of the right knee. Not happy with pain level and function of the knees. Is authorized for Gel One injection today. No new injury. She was scheduled for a right total knee arthroplasty but following her spinal she went into cardiac arrest. She is following up with her mask design engineer in September. Past family, medical, social history and review of systems has been reviewed, updated, and is located in the patient? s chart. Examination: Examination of the right knee reveals no effusion, erythema, or warmth. Injection site benign. Decreased range of motion. Point tender lateral joint line. Calf is soft and nontender. 5/5 strength knee flexion and extension Impression: Right knee osteoarthritis Plan: Nature of the diagnosis discussed with the patient today. Patient agreed to proceed with an injection. Utilizing sterile technique, the right knee was injected with Gel One. Patient tolerated the procedure well. Postinjection precautions reviewed. Recommended ice and rest for the next 24-48 hours. Follow-up as symptoms dictate. [employer] speech recognition snack bar attendant software was used to create portions of this document. An attempt at proofreading has been made to minimize errors. Please call for corrections. Gina Perez PA-C [address] [place] [address] Suite [facility], [place], [address], [facility] 07/26/2024 09:53:39 02/21/2025 text/html I am seeing the patient today under the supervision of Dr. Tran who was available but who did not see the patient. HPI: Patient presenting today with known osteoarthritis of the right knee. Not happy with pain level and function of the knees. Is authorized for Gel One injection today. No new injury. Her most recent Gel One injection was in July. She continues to take zinm-myt-xrgugop medication intermittently for her pain. Past family, medical, social history and review of systems has been reviewed, updated, and is located in the patient? s chart. Examination: Examination of the right knee reveals no effusion, erythema, or warmth. Injection site benign. Decreased range of motion. Point tender medial joint line. Calf is soft and nontender. 5/5 strength knee flexion and extension Impression: Right knee osteoarthritis Plan: Nature of the diagnosis discussed with the patient today. Patient agreed to proceed with an injection. Utilizing sterile technique, the right knee was injected with Gel One. Patient tolerated the procedure well. Postinjection precautions reviewed. Recommended ice and rest for the next 24-48 hours. Follow-up as symptoms dictate. [facility] speech recognition snack bar attendant software was used to create portions of this document. An attempt at proofreading has been made to minimize errors. Please call for corrections. Gina Perez PA-C [address] [facility] [address], [place], [address], [facility] 02/21/2025 09:48:35 OBGyn Episode No OBEpisode recorded.
== END 2025-03-14 13:17 | disposition home or self-care (01) ==
LOC: HO.NEURO 13:16
PROVIDERS: PCP Internal Medicine
DX: R20.0 Anesthesia of skin (principal); R20.2 Paresthesia of skin
CPT/HCPCS: 95886; 95909

== ENCOUNTER → 2025-03-14 13:19 | Outpatient (BNV) | payer MEDICARE, SELFPAY | PROVIDERS: PCP Internal Medicine; Visit Provider Physical Medicine & Rehabilitation | DX: G56.03 Carpal tunnel syndrome, bilateral upper limbs (principal) | CPT/HCPCS: 95886; 95909 ==

== ENCOUNTER 2025-04-10 10:51 | Outpatient (AMB) | payer MEDICARE, SELFPAY ==
--- NOTE | 2025-04-10 10:57 | A.OFFVIS_ITS ---
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 Patient reports that the right thumb,ring finger and middle finger have been having tingling/numbness for months. She states no injury to report. 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 Patient reports no physical therapy or injections, she does take arthritis tylenol that does have mild relief. EMG/NCS done on 03/14/25 IMPRESSION: 1. This is an abnormal study. 2. There is electrodiagnostic evidence for bilateral severe median neuropathy at the wrist, consistent with carpal tunnel syndrome. 3. There is no electrodiagnostic evidence for ulnar neuropathy, brachial plexopathy, or cervical radiculopathy. Allergies magnesium Allergy (Intermediate, Verified 04/10/25 11:03) upset stomach spinal anesthesia Adverse Reaction (Severe, Uncoded 01/04/25 11:28) neuromonic shock [facility] Medical History (Updated 01/04/25 @ 13:17 by Jennifer Collins PA-C) Atrial fibrillation Follow-up exam, 3-6 months since previous exam Overweight with body mass index (BMI) of 26 to 26.9 in adult History of mammogram (~08/2024) Carpal tunnel syndrome of right wrist Colon cancer screening (~01/15/24) History of bone density study (~10/08/23) Breast cancer screening by mammogram (~08/22/24) Abnormal inflammatory bowel disease panel Peripheral neuropathy Diverticulosis Essential hypertension Tubular adenoma History of diverticulitis Osteopenia Screening for diabetes mellitus COPD (chronic obstructive pulmonary disease) Surgical History History of colonoscopy (~11/28/21) History of partial hysterectomy History of hip replacement History of appendectomy Family History Father No problems noted. Mother No problems noted. Social History Housing: House Are you a primary day care supervisor to a significant other at home: No Do you presently have visiting nurse or other home services: No Alcohol intake: current Alcohol intake frequency: 0-2 drinks per day Patient Tobacco Use Status: Former Tobacco user Tobacco use type: Cigarette e-Cigarette/Vaping Use: Never Used Second Hand Smoke Exposure: No service: No Current occupational status: retired Cognitive needs: No Hearing needs: No Vision needs: Yes (Contact lenses) Review of Systems Const All systems reviewed & are unremarkable except as noted in HPI and below Physical Exam Extrem Other: Neuro: Diminished sensation in the median nerve distribution of right hand in the office today No thenar or intrinsic wasting. Good APB muscle firing and good finger cross. Vascular: Capillary refill brisk. ROM: Patient can make a fist and extend all their digits. Skin: No lacerations or abrasions noted. General: No ecchymosis. No erythema or evidence of infection. Assessment & Plan Assessment & Plan (1) Carpal tunnel syndrome of right wrist: Code(s): G56.01 - Carpal tunnel syndrome, right upper limb Category: Medical Plan 1. Right carpal tunnel syndrome Patient is educated about this condition Patient is educated about the typical treatment course At this time, patient is advised that the recommended treatment for her carpal tunnel syndrome is surgical intervention Patient states she would like to have some time to think about her surgery, as well as to get through the summer, as she has many plans that would be significantly hampered by recovery from surgery Patient will follow-up in 2-3 months for discussion of potential surgical intervention for her carpal tunnel syndrome Patient is amenable to this plan Coding Level of Care Code Est Pt Level 3 (37916) Diagnoses Carpal tunnel syndrome of right wrist G56.01
--- OUTSIDE RECORDS SUMMARY | 2025-04-10 11:55 | XMS_ITS | Data Portability ---
Author Organization [facility], [facility] [place] Address [address] [place] [address] Care Team Providers Care Inspector Assemblies And Installations Name Role Phone THI SUÁREZ Referring Provider [phone] THI SUÁREZ Primary Care Provider Assessment Encounter Date Assessment Date Assessment LastModified [...] and lucid. Normal insight, affect and grooming. 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 No spasticity or clonus noted. Extremities: Calves are soft nontender, skin intact Orthopedic Examination: Right Knee: Neutral alignment. Range of motion quite limited 5-90 . Severe tenderness and crepitus throughout. No instability. [...] osteoarthrits of the bilateral knees. There is fuah-jb-fklz articulation, subchondral sclerosis, and osteophyte formation. Assessment: [...] questions or concerns that they might have. Not available 05/04/2024 12:33:50 05/18/2024 05/18/2024 Assessment: Abiola ent presents with symptoms that are consistent with knee OA. Demonstrates good understanding of home program, post-operative mechanics for gait and stairs, and expectations following surgery. Plan: Discharge patient to knee OA safe HEP. Follow up with patient post-operatively. tpyser Not [...] right total knee arthroplasty with Dr. Neely. PAST MEDICAL HISTORY: 1. Osteoarthritis of the right knee. 2. Hypertension. 3. Hyperlipidemia. 4. Asthma. 5. Diverticulitis with her most recent GI flare 4-5 months ago. 6. Varicose veins. 7. Sciatica. 8. GERD. PAST SURGICAL HISTORY: 1. Left hip arthroplasty [place] [address] Neely. 2. Right hip arthroplasty [...] is Dr. 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 Lindsey. REVIEW [...] osteoarthritis of the bilateral knees. There is iqef-xk-gzpx articulation, subchondral sclerosis and osteophyte formation. Preoperative [...] Dr. Neely. CONTACTS: Her , Feng at [phone]. Prescriptions given at the time of the [...] XR, chest No observ ation record ed. [facility] [address] [place], [address], 06/03/2024 08:01:45 Result Notes None recorded. Problems Name Problem SNOMED Code Status Onset Date Resolution Date Notes Provider Name and Address Organization Details Recorded Time Osteoarthri tis of right knee joint 8409428016213 00 Active 2024 Gina Perez PA-C [address] [facility], [place], [address], [facility] 5 09:47:35 Problem Notes None recorded. Procedures Surgical History Date Name Laterality Status Provider Name and Address Organization Details Recorded Time 5 Gel-One Knee Injection completed Gina Perez PA-C [address], [place], [address], [facility] 02/21/2025 09:48:25 4 Gel-One Knee Injection completed Gina Perez PA-C [address], [place], [address], [facility] 07/26/2024 09:53:21 4 79117 Therapeutic Exercise (1:1) completed Alejandro Obregonser, PT [address], [place], [address], [facility] 05/17/2024 21:28:27 4 [address]27: Low complexity PT Eval completed Alejandro Ellis, PT [address], [place], [address], [facility] 05/17/2024 21:28:29 4 G8417 BMI Above Upper Parameters, F/U Documented completed Alejandro Ellis, PT [address], [place], [address], [facility] 05/17/2024 21:28:34 4 G8427 Current Medication Documented completed Alejandro Ellis, PT [address], [place], [address], [facility] 05/17/2024 21:28:53 4 Gel-One Knee Injection completed Laz Atkins PA-C [address] [facility], [place], [address], [facility] 01/18/2024 16:54:48 4 Sports Knee 4&1 completed Laz Atkins PA-C [address], [place], [address], [facility] 12/27/2023 11:19:20 Imaging Results None recorded. Procedure Notes None recorded. Medical Equipment None Reported. Allergies Allergen ID Allergen Name Allergen Category Reaction Reaction Severity Criticality Documentation Date Start Date Code Code System Note Provider Name and Address Organization Details Recorded Time 293704 magnesium medicatio n Not available Not available Not available 05/04/2024 6574 RxNorm DESTINEY SHAH [facility] 10:37:01 Medications Name Sig Start Date [...] MIX 238 GRAMS ORALLY ONCE DIRECTED BY [facility] T AT [facility] 05/04 completed Not Available Not Available Not [...] Updated DateTime 02/21/2025 159.39 cm 26.6 kg/m2 50820.26 g [facility] 02/21/2025 09:04:14 Date Recorded Body height Body mass index (BMI) Body weight Provider Name and Address Organization Details Last Updated DateTime 05/04/2024 159.39 cm 26.8 kg/m2 38274.86 g DESTINEY SHAH [facility] 05/04/2024 10:36:26 Date Recorded Body height Body mass index (BMI) Body weight Provider Name and Address Organization Details Last Updated DateTime 05/29/2024 159.39 cm 26.6 kg/m2 46773.26 g NAPOLEON KAUR [facility] 05/29/2024 11:32:02 Date Recorded Body height Body mass index (BMI) Body weight Provider Name and Address Organization Details Last Updated DateTime 07/26/2024 159.39 cm 26.6 kg/m2 25256.26 g [facility] 07/26/2024 09:21:16 Social History Question Answer Notes LastModified by Organizat ion Details LastModified Time Tobacco Smoking Status Never Smoker MADELAINE [place] [facility] [place] [facility] 12/27/2023 08:51:44 Have You Ever Been Counseled For Unhealthy Alcohol Use? No Information not available 12/27/2023 Sex: Unknown Functional Status Question Answer Note LastModified by Organizat ion Details LastModified Time How many times per week do you consume alcohol? 1-2 times per week Information not available 12/27/2023 Do you use any illicit or recreational drugs? No pratima Information not available 12/27/2023 Do you or have you ever used any other forms of tobacco or nicotine? No abrahamjia Information not available 12/27/2023 What is your level of alcohol consumption? Occasional shereemejia Information not available 12/27/2023 Mental Status None recorded. Family History Nothing Reported. Medical History No medical history recorded. Gynecological HistoryNo gynecological history recorded. Obstetrics History GPAL:G 0 P 0 0 0 0 Past Encounters Encounter ID Performer Location Encounter Start Date Encounter Closed Date Diagnosis/Indication Diagnosis SNOMED-CT Code Diagnosis ICD10 Code Diagnosis Note [id number] JERMAINE Farris [address] [place] [address] 12/27/2023 08:15:04 12/27/2023 09:22:24 Pain of right knee joint 8883759040 51861 M25.561 Osteoarthr itis of right knee joint 1332344716 38764 M17.11 [id number] JERMAINE Farris [address] [place] [address] 01/18/2024 16:26:06 01/28/2024 09:03:56 Osteoarthritis of right knee joint 9094518686 57006 M17.11 [id number] JERMAINE Pineda [address] [place] [address] 03/20/2024 11:07:04 04/18/2024 14:36:24 Osteoarthritis of right knee joint 0677536265 69543 M17.11 [id number] Fabian Neely MD [address] [place] [address] 05/04/2024 10:29:07 05/26/2024 09:24:38 Osteoarthritis of right knee joint 4037525301 49636 M17.11 [id number] Alejandro Obregonser, PT [facility] [address] [place] [address] 05/18/2024 13:11:02 05/18/2024 14:57:47 Osteoarthritis of knee 767153106 M17.11 [id number] Kenneth Quintero, LICENSED PHYSICAL THERAPIST [facility] [address] [place] [address] 05/29/2024 11:20:11 06/15/2024 18:35:32 [id number] Gina Perez PA-C [facility] [address] [place] [address] 07/26/2024 09:08:08 08/18/2024 10:37:29 Osteoarthritis of right knee joint 4413862465 90024 M17.11 [id number] Gina Perez PA-C [facility] [address] [place] [address] 02/21/2025 09:00:22 03/02/2025 12:18:48 Osteoarthritis of right knee joint 5441901921 78232 M17.11 Health Concerns Section Related Observation LastModified by Organization Detai ls LastModified Time None Recorded Concern Status LastModified by Organization Details LastModified Time None Recorded Advance Directives Directive None Recorded Payers Insurance Date Sequence Insurance Name Policy Number Policy Christie Covered Member ID Christie Member ID Guarantor Name 03/02/2025 2 [place] [id number] Laura Maria [id number] Laura Maria 02/21/2025 1 [place] [employer]OVERNMENT [place] Laura Maria [id number] Laura Maria Notes Date Note Type Note Provider Name [...] beach. H/o B THR: R 2005, L 2006, Excellent Results Alejandro Ellis, PT [address], [place], [address], [facility] 05/18/2024 15:07:08 07/26/2024 text/html [...] arrest. She is following up with her grocery stocker in September. Past family, medical, social history and review of systems has been reviewed, updated, and is located in the patient s chart. Examination: Examination of the right [...] next 24-48 hours. Follow-up as symptoms dictate. [facility] speech recognition channel marketing coordinator software was used to create portions of this document. An attempt at proofreading has been made to minimize errors. Please call for corrections. Gina Perez PA-C [address], [place], [address], [facility] 07/26/2024 09:53:39 02/21/2025 text/html I am seeing [...] was in July. She continues to take qwqb-pwq-jvjhdtk medication intermittently for her pain. Past family, medical, social history and review of systems has been reviewed, updated, and is located in the patient s chart. Examination: Examination of the right [...] next 24-48 hours. Follow-up as symptoms dictate. [facility] speech recognition channel marketing coordinator software was used to create portions of this document. An attempt at proofreading has been made to minimize errors. Please call for corrections. Gina Perez PA-C [address] [facility] [address], [place], [address], [facility] - [facility] 02/21/2025 09:48:35 OBGyn Episode No OBEpisode recorded.
== END 2025-04-10 11:23 | disposition home or self-care (01) ==
LOC: HO.HOS 10:52
PROVIDERS: PCP Internal Medicine
DX: G56.01 Carpal tunnel syndrome, right upper limb (principal)
CPT/HCPCS: 99213

== ENCOUNTER → 2025-04-10 10:51 | Outpatient (BNVA) | payer MEDICARE, SELFPAY | PROVIDERS: PCP Internal Medicine | DX: G56.01 Carpal tunnel syndrome, right upper limb (principal) | CPT/HCPCS: 99212 ==

== ENCOUNTER 2025-04-25 09:06 | Outpatient (REF) | payer MEDICARE, SELFPAY | END 2025-04-25 09:07 | disposition home or self-care (01) | LOC: HO.LAB 09:06 | PROVIDERS: PCP Internal Medicine; Visit Provider Nurse Practitioner Family | DX: R85.7 Abnormal histological findings in specimens from digestive organs and abdominal cavity (principal); K58.2 Mixed irritable bowel syndrome; K57.90 Diverticulosis of intestine, part unspecified, without perforation or abscess without bleeding; R15.9 Full incontinence of feces; R10.9 Unspecified abdominal pain | CPT/HCPCS: 99212 ==

== ENCOUNTER 2025-04-25 09:06 | Outpatient (AMB) | payer MEDICARE, SELFPAY ==
--- NOTE | 2025-04-25 09:10 | A.OFFVIS_ITS ---
Vital Signs 04/25/25 09:16 Height 5 ft 3 in Weight 150 lb BMI 26.6 BP 134/58 L Blood Pressure Location Rt brachial Position Sitting Pulse 66 Pulse Source Pulse Oximeter Pulse Oximetry (%) 96 Oxygen Delivery Method Room Air Intake Visit Reasons: 6 mo f/u r/s 03/16/25 Intake Note: Est pt for mgmt of CIC + Diverticulosis. CC; C.O. chronic sx mgmt as well as concerns regarding mesalamine mgmt and whether she needs to continue it or change the Rx. 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 Patient is reporting that she is doing well. Avoid dietary triggers. Continue low FODMAP diet as much as possible. Patient will stay away from lactose as it is making her have multiple diarrhea after. Patient will be going to [place] with her for treatment. She is worried that she might have symptoms would like to have Cipro on hand as she will not be able to leave the treatment area where her will be staying. Script for 7 day supply given to patient. Patient was encouraged to move her bowels daily and take MiraLax as needed as well as increase fluid intake. I will see patient in 6 months, sooner on as needed basis. She is agreeable to this plan and verbalizes understanding of instructions. She was given the opportunity to ask questions and all questions answered. ? Thank you for allowing me to participate in her care New ciprofloxacin HCl 500 mg PO BID 14 tabs 0RF TODAY'S VISIT Patient is here today for follow-up. Patient reports that she has been feeling fairly well. Last symptoms of abdominal pain was when she was with her in [place] in November. Patient reports that she stopped taking mesalamine as she felt like it was not helping her. Patient reports frequent incidence of loose stools. Patient states that she will use Imodium. She is not taking any fiber supplements at this time. Patient denies any melena, hematochezia, unintentional weight loss or ribbon like stools. Patient admits to be under a lot of stress. 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 Patient reports that she has very close and strong relationship with her relatives and feels like there is enough support. Patient denies any dyspepsia, dysphagia or odynophagia. [facility] Medical History (Updated 04/25/25 @ 19:[address] [facility]) Colon cancer screening (~01/15/24) Atrial fibrillation Follow-up exam, 3-6 months since previous exam Overweight with body mass index (BMI) of 26 to 26.9 in adult History of mammogram (~08/2024) Carpal tunnel syndrome of right wrist History of bone density study (~10/08/23) Breast cancer screening by mammogram (~08/22/24) Abnormal inflammatory bowel disease panel Peripheral neuropathy Diverticulosis Essential hypertension Tubular adenoma History of diverticulitis Osteopenia Screening for diabetes mellitus COPD (chronic obstructive pulmonary disease) Surgical History History of colonoscopy (~11/28/21) History of partial hysterectomy History of hip replacement History of appendectomy Family History Father No problems noted. Mother No problems noted. Social History Housing: House Are you a primary child day care provider to a significant other at home: No Do you presently have visiting nurse or other home services: No Alcohol intake: current Alcohol intake frequency: 0-2 drinks per day Patient Tobacco Use Status: Former Tobacco user Tobacco use type: Cigarette e-Cigarette/Vaping Use: Never Used Second Hand Smoke Exposure: No service: No Current occupational status: retired Cognitive needs: No Hearing needs: No Vision needs: Yes (Contact lenses) Review of Systems Const Denies weight gain and Denies weight loss ENT Reports no additional complaints, Denies dysphagia and Denies odynophagia Card Reports no additional complaints Resp Reports no additional complaints GI Denies abdominal pain, Denies belching, Denies melena, Denies bloating, Denies change in bowel habits, Denies dysphagia, Denies excessive flatus, Denies dyspepsia, Denies heartburn, Denies diarrhea, Reports loose stools, Denies nausea, Denies odynophagia and Denies vomiting Reports no additional complaints Musc Reports no additional complaints Neuro Reports no additional complaints Psych Reports no additional complaints Endo Reports no additional complaints Physical Exam Vital Signs: Last Vital Signs Pulse 66 04/25/25 09:16 BP 134/58 L 04/25/25 09:16 Pulse Ox 96 04/25/25 09:16 Oxygen Delivery Method Room Air 04/25/25 09:16 BMI result Body Mass Index 26.6 Const General: healthy appearing, no acute distress and well developed Nutritional Appearance: well nourished Orientation/consciousness: patient oriented x3 Resp Effort & Inspection: normal respiratory effort, able to speak in complete sentences, no tracheal deviation and symmetric chest movement Auscultation: clear to auscultation bilaterally Cardio Rate: regular rate GI Inspection: Yes normal to inspection and No distended Palpation (GI): Soft to palpation, not firm, nontender and No hepatosplenomegaly present Auscultation: normal bowel sounds General: Yes no CVA tenderness Back/Spine/Pelvis Back: no CVA tenderness Skin General skin exam: elasticity normal, turgor normal and dry skin Neuro General: patient oriented x3 Psych Appearance: grossly normal Mental Status: mental status grossly normal Assessment & Plan Assessment & Plan (1) Irritable bowel syndrome: Code(s): K58.9 - Irritable bowel syndrome, unspecified Category: Medical Qualifiers: Irritable bowel syndrome type: with both diarrhea and constipation Qualified Code(s): K58.2 - Mixed irritable bowel syndrome (2) Diverticulosis: Code(s): K57.90 - Diverticulosis of intestine, part unspecified, without perforation or abscess without bleeding Category: Medical (3) Abnormal inflammatory bowel disease panel: Code(s): R85.7 - Abnormal histological findings in specimens from digestive organs and abdominal cavity Category: Medical Plan Patient stopped taking mesalamine. We will send her to check fecal calprotectin. Inflammatory bowel disease promethius lab was negative for inflammatory bowel disease. Patient however was encouraged to take more fiber to help her bulk her stool. Avoid using loperamide as this will complicate and patient will end up with diverticulitis. Patient has severe diverticulosis throughout the entire colon. Increase fluid intake and activity to promote better bowel motility. Patient will follow-up in 3-4 months, sooner on as needed basis. She is agreeable to this plan and verbalizes understanding of instructions. She was given the opportunity to ask questions and all questions answered. Thank you for allowing me to participate in her care Orders: Orders Calprotectin, Fecal Today R15.9 - Full incontinence of feces Coding Level of Care Code Est Pt Level 4 (17089) Diagnoses Irritable bowel syndrome with both constipation and diarrhea K58.2 Irritable bowel syndrome type: with both diarrhea and constipation Diverticulosis K57.90 Abnormal inflammatory bowel disease panel R85.7 Time Spent (min) 35 Comment 25 minutes spent with patient and additional 10 minutes spent reviewing her records
[2025-04-25 09:16] VITALS: BP 134/58; PULSE 66; O2SAT 96; BMI 26.6
--- OUTSIDE RECORDS SUMMARY | 2025-04-25 09:36 | XMS_ITS | Data Portability ---
Author Organization [facility], [facility] [place] Address [address] [place] [address] Care Team Providers Care Clinical Nursing Coordinator Name Role Phone THI SUÁREZ Referring Provider [phone] THI SUÁREZ Primary Care Provider Assessment Encounter [...] and lucid. Normal insight, affect and grooming. 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 No spasticity [...] osteoarthrits of the bilateral knees. There is wkye-co-qocx articulation, subchondral sclerosis, and osteophyte formation. Assessment: [...] is Dr. Suárez who is also her nail artist and her GI doctor, Dr. Lindsey. REVIEW [...] osteoarthritis of the bilateral knees. There is nipo-tg-ouou articulation, subchondral sclerosis and osteophyte formation. Preoperative [...] Dr. Neely. CONTACTS: Her , Feng at [phone]. Prescriptions given at the time of the [...] XR, chest No observ ation record ed. [facility] [address] [place], [address], 06/03/2024 08:01:45 Result Notes None recorded. Problems Name Problem SNOMED Code Status Onset Date Resolution Date Notes Provider Name and Address Organization Details Recorded Time Osteoarthri tis of right knee joint 5349939626118 00 Active 2024 Gina Perez PA-C [address] [facility], [place], [address], [facility] 5 09:47:35 Problem Notes None recorded. Procedures Surgical History Date Name Laterality Status Provider Name and Address Organization Details Recorded Time 5 Gel-One Knee Injection completed Gina Perez PA-C [address], [place], [address], [facility] 02/21/2025 09:48:25 4 Gel-One Knee Injection completed Gina Perez PA-C [address], [place], [address], [facility] 07/26/2024 09:53:21 4 22589 Therapeutic Exercise (1:1) completed Alejandro Obregonser, PT [address], [place], [address], [facility] 05/17/2024 21:28:27 4 66713: Low complexity PT Eval completed Alejandro Ellis, PT [address], [place], [address], [facility] 05/17/2024 21:28:29 4 G8417 BMI Above Upper Parameters, F/U Documented completed Alejandro Ellis, PT [address], [place], [address], [facility] 05/17/2024 21:28:34 4 G8427 Current Medication Documented completed Alejandro Ellis, PT [address], [place], [address], [facility] 05/17/2024 21:28:53 4 Gel-One Knee Injection completed Laz Atkins PA-C [address] [facility], [place], [address], [facility] 01/18/2024 16:54:48 4 Sports Knee 4&1 completed Laz Atkins PA-C [address], [place], [address], [facility] 12/27/2023 11:19:20 Imaging Results None recorded. Procedure Notes None recorded. Medical Equipment None Reported. Allergies Allergen ID Allergen Name Allergen Category Reaction Reaction Severity Criticality Documentation Date Start Date Code Code System Note Provider Name and Address Organization Details Recorded Time 417708 magnesium medicatio n Not available Not available Not available 05/04/2024 6574 RxNorm DESTINEY SHAH [facility] 10:37:01 Medications Name Sig Start Date Stop [...] MIX 238 GRAMS ORALLY ONCE DIRECTED BY [facility] AT [facility] 05/04 completed Not Available Not Available Not [...] Updated DateTime 02/21/2025 159.39 cm 26.6 kg/m2 39997.26 g [facility] 02/21/2025 09:04:14 Date Recorded Body height Body mass index (BMI) Body weight Provider Name and Address Organization Details Last Updated DateTime 05/04/2024 159.39 cm 26.8 kg/m2 39786.86 g DESTINEY SHAH [facility] 05/04/2024 10:36:26 Date Recorded Body height Body mass index (BMI) Body weight Provider Name and Address Organization Details Last Updated DateTime 05/29/2024 159.39 cm 26.6 kg/m2 38533.26 g NAPOLEON KAUR [facility] 05/29/2024 11:32:02 Date Recorded Body height Body mass index (BMI) Body weight Provider Name and Address Organization Details Last Updated DateTime 07/26/2024 159.39 cm 26.6 kg/m2 85579.26 g [facility] 07/26/2024 09:21:16 Social History Question Answer Notes LastModified by Organizat ion Details LastModified Time Tobacco Smoking Status Never Smoker MADELAINE hunt [place] - [facility] 12/27/2023 08:51:44 Have You Ever Been Counseled [...] SNOMED-CT Code Diagnosis ICD10 Code Diagnosis Note [id number] JERMAINE Farris [address] [place] [address] 12/27/2023 08:15:04 12/27/2023 09:22:24 Pain of right knee joint 4415529622 07036 M25.561 Osteoarthr itis of right knee joint 9218672814 64089 M17.11 [id number] JERMAINE Farris [address] [place] [address] 01/18/2024 16:26:06 01/28/2024 09:03:56 Osteoarthritis of right knee joint 1665860915 63137 M17.11 [id number] JERMAINE Pineda [address] [place] [address] 03/20/2024 11:07:04 04/18/2024 14:36:24 Osteoarthritis of right knee joint 3673232539 44447 M17.11 [id number] Fabian Neely MD [address] [place] [address] 05/04/2024 10:29:07 05/26/2024 09:24:38 Osteoarthritis of right knee joint 2442620137 74660 M17.11 [id number] Alejandro Obregonser, PT [facility] [address] [place] [address] 05/18/2024 13:11:02 05/18/2024 14:57:47 Osteoarthritis of knee 408951743 M17.11 [id number] Kenneth Quintero, CONSTRUCTION JOB COST ESTIMATOR [address] [place] [address] 05/29/2024 11:20:11 06/15/2024 18:35:32 [id number] Gina Perez PA-C [address] [place] [address] 07/26/2024 09:08:08 08/18/2024 10:37:29 Osteoarthritis of right knee joint 6709089220 52610 M17.11 [id number] Gina Perez PA-C [facility] - [facility] [address] [place] [address] 02/21/2025 09:00:22 03/02/2025 12:18:48 Osteoarthritis of right knee joint 4500395014 05652 M17.11 Health Concerns Section Related Observation LastModified by Organization Detai ls LastModified Time None Recorded Concern Status LastModified by Organization Details LastModified Time None Recorded Advance Directives Directive None Recorded Payers Insurance Date Sequence Insurance Name Policy Number Policy Christie Covered Member ID Christie Member ID Guarantor Name 03/02/2025 2 [place] [id number] Laura Maria [id number] Laura Maria 02/21/2025 1 [place] GOVERNMENT [place] Laura Maria [id number] Laura Maria Notes Date Note Type [...] 2006, Excellent Results Alejandro Ellis, PT [address] [facility] [address], [place], [address], [facility] 05/18/2024 15:07:08 07/26/2024 text/html [...] arrest. She is following up with her boiler water tester in September. Past family, medical, social history [...] next 24-48 hours. Follow-up as symptoms dictate. [facility] speech recognition hand candle molder software was used to create portions of this document. An attempt at proofreading has been made to minimize errors. Please call for corrections. Gina Perez PA-C [address], [place], [address], [facility] 07/26/2024 09:53:39 02/21/2025 text/html [...] was in July. She continues to take ghzx-uiw-acrfzla medication intermittently for her pain. Past family, [...] next 24-48 hours. Follow-up as symptoms dictate. [facility] speech recognition hand candle molder software was used to create portions of this document. An attempt at proofreading has been made to minimize errors. Please call for corrections. Gina Perez PA-C [address] [facility] [address], [place], [address], [facility] 02/21/2025 09:48:35 OBGyn Episode No OBEpisode recorded.
== END 2025-04-25 09:38 | disposition home or self-care (01) ==
LOC: HO.HGI 09:07
PROVIDERS: PCP Internal Medicine; Visit Provider Nurse Practitioner Family
DX: K58.2 Mixed irritable bowel syndrome (principal); K57.90 Diverticulosis of intestine, part unspecified, without perforation or abscess without bleeding; R85.7 Abnormal histological findings in specimens from digestive organs and abdominal cavity
CPT/HCPCS: 99214

== ENCOUNTER 2025-05-01 09:34 | Outpatient (REF) | payer MEDICARE, SELFPAY ==
--- OUTSIDE RECORDS SUMMARY | 2025-05-01 10:07 | XMS_ITS | Data Portability ---
Author Organization [facility], [facility] [place] Address [address] [place] [address] Care Team Providers Care Pharmacometrician Name Role Phone THI SUÁREZ Referring Provider [phone] THI SUÁREZ Primary Care Provider [phone] Assessment Encounter Date Assessment Date Assessment LastModified [...] and lucid. Normal insight, affect and grooming. 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 No spasticity [...] osteoarthrits of the bilateral knees. There is xghx-ry-zcte articulation, subchondral sclerosis, and osteophyte formation. Assessment: [...] questions or concerns that they might have. [email or web address] Not available 05/04/2024 12:33:50 05/18/2024 05/18/2024 Assessment: [...] is Dr. Suárez who is also her starcher and tenter range feeder and her GI doctor, Dr. Lindsey. REVIEW [...] osteoarthritis of the bilateral knees. There is xzrw-is-zgkr articulation, subchondral sclerosis and osteophyte formation. Preoperative [...] Dr. Neely. CONTACTS: Her , Feng at [phone]. Prescriptions given at the time of the [...] XR, chest No observ ation record ed. [facility] [address] [place], [address], 06/03/2024 08:01:45 Result Notes None recorded. Problems Name Problem SNOMED Code Status Onset Date Resolution Date Notes Provider Name and Address Organization Details Recorded Time Osteoarthri tis of right knee joint 5306219437113 00 Active 2024 Gina Perez PA-C [address] [facility], [place], [address], [facility] 5 09:47:35 Problem Notes None recorded. Procedures Surgical History Date Name Laterality Status Provider Name and Address Organization Details Recorded Time 5 Gel-One Knee Injection completed Gina Perez PA-C [address], [place], [address], [facility] 02/21/2025 09:48:25 4 Gel-One Knee Injection completed Gina Perez PA-C [address], [place], [address], [facility] 07/26/2024 09:53:21 4 37594 Therapeutic Exercise (1:1) completed Alejandro Obregonser, PT [address], [place], [address], [facility] 05/17/2024 21:28:27 4 72789: Low complexity PT Eval completed Alejandro Ellis, PT [address], [place], [address], [facility] 05/17/2024 21:28:29 4 G8417 BMI Above Upper Parameters, F/U Documented completed Alejandro Ellis, PT [address], [place], [address], [facility] 05/17/2024 21:28:34 4 G8427 Current Medication Documented completed Alejandro Ellis, PT [address], [place], [address], [facility] 05/17/2024 21:28:53 4 Gel-One Knee Injection completed Laz Atkins PA-C [address] [facility], [place], [address], [facility] 01/18/2024 16:54:48 4 Sports Knee 4&1 completed Laz Atkins PA-C [address], [place], [address], [facility] 12/27/2023 11:19:20 Imaging Results None recorded. Procedure Notes None recorded. Medical Equipment None Reported. Allergies Allergen ID Allergen Name Allergen Category Reaction Reaction Severity Criticality Documentation Date Start Date Code Code System Note Provider Name and Address Organization Details Recorded Time 507255 magnesium medicatio n Not available Not available Not available 05/04/2024 6574 RxNorm DESTINEY SHAH [facility] 10:37:01 Medications Name Sig Start Date [...] MIX 238 GRAMS ORALLY ONCE DIRECTED BY [facility] T AT [facility] 05/04 completed Not Available Not Available [...] Updated DateTime 02/21/2025 159.39 cm 26.6 kg/m2 02231.26 g [facility] 02/21/2025 09:04:14 Date Recorded Body height Body mass index (BMI) Body weight Provider Name and Address Organization Details Last Updated DateTime 05/04/2024 159.39 cm 26.8 kg/m2 48386.86 g DESTINEY SHAH [facility] 05/04/2024 10:36:26 Date Recorded Body height Body mass index (BMI) Body weight Provider Name and Address Organization Details Last Updated DateTime 05/29/2024 159.39 cm 26.6 kg/m2 21488.26 g NAPOLEON KAUR [facility] 05/29/2024 11:32:02 Date Recorded Body height Body mass index (BMI) Body weight Provider Name and Address Organization Details Last Updated DateTime 07/26/2024 159.39 cm 26.6 kg/m2 65128.26 g [facility] 07/26/2024 09:21:16 Social History Question Answer Notes LastModified by Organizat ion Details LastModified Time Tobacco Smoking Status Never Smoker MADELAINE hunt [place] - [place] [facility] 12/27/2023 08:51:44 Have You Ever Been [...] SNOMED-CT Code Diagnosis ICD10 Code Diagnosis Note [id number] JERMAINE Farris [address] [place] [address] 12/27/2023 08:15:04 12/27/2023 09:22:24 Pain of right knee joint 6723334484 88438 M25.561 Osteoarthr itis of right knee joint 5688654982 43273 M17.11 [id number] JERMAINE Farris [address] [place] [address] 01/18/2024 16:26:06 01/28/2024 09:03:56 Osteoarthritis of right knee joint 6378933599 46960 M17.11 [id number] JERMAINE Pineda [address] [address] 03/20/2024 11:07:04 04/18/2024 14:36:24 Osteoarthritis of right knee joint 9824674099 89941 M17.11 [id number] Fabian Neely MD [address] [place] [address] 05/04/2024 10:29:07 05/26/2024 09:24:38 Osteoarthritis of right knee joint 9034050425 70265 M17.11 [id number] Alejandro Pyser, PT [facility] [address] [place] [address] 05/18/2024 13:11:02 05/18/2024 14:57:47 Osteoarthritis of knee 112899411 M17.11 [id number] Kenneth Quintero, MACHINE GROUP LEADER [facility] [address] [place] [address] 05/29/2024 11:20:11 06/15/2024 18:35:32 [id number] Gina Perez PA-C [facility] [address] [place] [address] 07/26/2024 09:08:08 08/18/2024 10:37:29 Osteoarthritis of right knee joint 1689237039 19822 M17.11 [id number] Gina Perez PA-C [facility] - [facility] [address] [place] [address] 02/21/2025 09:00:22 03/02/2025 12:18:48 Osteoarthritis of right knee joint 8404759331 38981 M17.11 Health Concerns Section Related Observation LastModified by Organization Detai ls LastModified Time None Recorded Concern Status LastModified by Organization Details LastModified Time None Recorded Advance Directives Directive None Recorded Payers Insurance Date Sequence Insurance Name Policy Number Policy Christie Covered Member ID Christie Member ID Guarantor Name 03/02/2025 2 [place] [id number] Laura Molina Boshirleyeau [id number] Laura Bourbeau 02/21/2025 1 [place] Laura Becketteau [id number] Lauracontreras [place] OBGyn Episode No OBEpisode recorded.
[2025-05-07 00:48] LABS: Calprotectin, Fecal 46 mcg/g
== END 2025-05-01 09:35 | disposition home or self-care (01) ==
LOC: HO.LNP 09:34
PROVIDERS: Visit Provider Nurse Practitioner Family
DX: R15.9 Full incontinence of feces (principal)
CPT/HCPCS: 83993

== ENCOUNTER 2025-07-04 09:52 | Outpatient (AMB) | payer MEDICARE, SELFPAY ==
[2025-07-04 09:56] VITALS: BP 112/58; PULSE 69; O2SAT 96; BMI 27.5
--- NOTE | 2025-07-04 09:56 | A.OFFVIS_ITS ---
Vital Signs 07/04/25 09:56 Height 5 ft 3 in Weight 155 lb 6.814 oz BMI 27.5 BP 112/58 L Blood Pressure Location Lt brachial Position Sitting Pulse 69 Pulse Source Pulse Oximeter Pulse Oximetry (%) 96 Oxygen Delivery Method Room Air Intake Visit Reasons: COPD Intake Note: pt is here for follow up and states she started Breztri and she noticed she finds she wakes up in am with a cough and phlegm and it is every day but every morning. pt is not in A-fib, had episode of neurogenic shock. Reuse Technician Required: No Gasoline Engine Inspector: Gasoline Engine Inspector offered & declined Allergies magnesium Allergy (Intermediate, Verified 07/04/25 10:20) upset stomach spinal anesthesia Adverse Reaction (Severe, Uncoded 07/04/25 10:20) neuromonic shock Medication List - Last Reconciled 07/04/25 by Trang James MD albuterol sulfate 90 mcg/actuation (ProAir HFA) 2 puffs inhalation Q6H PRN 30 days amoxicillin 2,000 mg PO pglchkizen-zjbyzath-sbkvszyrxk 160-9-4.8 mcg/actuation (Breztri Aerosphere) 2 inhalations inhalation ONCE cyclosporine 0.05% (Restasis) 1 drp ophthalmic (eye) Q12H docusate sodium 100 mg PO BEDTIME enalapril-hydrochlorothiazide 5-12.5 mg 1 tab PO DAILY mesalamine (Lialda) 1.2 grams PO DAILY multivitamin 1 tab PO DAILY rosuvastatin 5 mg PO DAILY Do you need a note to return to daycare/school/sports/work: No HPI HPI COPD: Details: 79 YEARS OLD FEMALE A LONGSTANDING PATIENT OF COPD, IS HERE FOR YEARLY CHECKUP. SHE STATES THAT THE BREATHING HAS BEEN. VERY STABLE ON LONG SHE IS USING BREZTRI 2 PUFFS B.I.D., AND HARDLY NEEDS TO USE ALBUTEROL. HER MAIN SYMPTOM IS THAT SHE HAS SOME EXTRA MUCUS IN THE NASOPHARYNX WHICH SHE HAS TO CLEAR IN THE MORNING HOURS. FOR REST OF THE DAY SHE IS OKAY. SHE HAS ONLY MILD DYSPNEA ON EXERTION SUCH CLIMBING STAIRS OR WALKING UP HILL. SHE HAS NOT HAD ANY ACUTE RESPIRATORY INFECTIONS. [facility] Medical History Colon cancer screening (~01/15/24) Atrial fibrillation Follow-up exam, 3-6 months since previous exam Overweight with body mass index (BMI) of 26 to 26.9 in adult History of mammogram (~08/2024) Carpal tunnel syndrome of right wrist History of bone density study (~10/08/23) Breast cancer screening by mammogram (~08/22/24) Abnormal inflammatory bowel disease panel Peripheral neuropathy Diverticulosis Essential hypertension Tubular adenoma History of diverticulitis Osteopenia Screening for diabetes mellitus COPD (chronic obstructive pulmonary disease) Surgical History History of colonoscopy (~11/28/21) History of partial hysterectomy History of hip replacement History of appendectomy Family History Father No problems noted. Mother No problems noted. Social History Housing: House Are you a primary resident care supervisor to a significant other at home: No Do you presently have visiting nurse or other home services: No Alcohol intake: current Alcohol intake frequency: 0-2 drinks per day Patient Tobacco Use Status: Former Tobacco user Tobacco use type: Cigarette e-Cigarette/Vaping Use: Never Used Second Hand Smoke Exposure: No service: No Current occupational status: retired Cognitive needs: No Hearing needs: No Vision needs: Yes (Contact lenses) Review of Systems Const All systems reviewed & are unremarkable except as noted in HPI and below Eyes Reports no additional complaints ENT Reports no additional complaints and Reports other (Occasional self-limiting bleeding from the left nostril, during winter) Card Denies chest pain, Denies irregular heart rhythm and Denies leg edema Resp Reports as per HPI GI Reports no additional complaints and Reports heartburn (CONTROLLED WITH OMEPRAZOLE) Reports no additional complaints Musc Reports no additional complaints Skin/Breast Reports system reviewed and no additional complaints, except as documented Neuro Reports no additional complaints Psych Reports no additional complaints Physical Exam Vital Signs: Last Vital Signs Pulse 69 07/04/25 09:56 BP 112/58 L 07/04/25 09:56 Pulse Ox 96 07/04/25 09:56 Oxygen Delivery Method Room Air 07/04/25 09:56 BMI result Body Mass Index 27.5 Const General: healthy appearing, comfortable, no acute distress, alert and awake Orientation/consciousness: patient oriented x3 HEENT Head: Yes normal to inspection General nose exam: No nasal polyps present, No nasal discharge present and Other nasal findings present (No active bleeding spot noted at this time) Face and sinus: Yes sinuses nontender Mouth: oropharynx normal Throat: Yes posterior oropharynx normal Eyes General: appearance normal, both eyes and all related structures Neck Neck: Yes normal visual inspection, Yes no lymphadenopathy, Yes trachea midline and Yes no JVD Thyroid: Thyroid normal Chest Chest palpation & inspection: normal inspection of the chest, normal palpation of entire chest wall and no tenderness Resp Other: Percussion note resonant, breath sounds are normal, slightly prolonged expiratory phase. No wheezes or rhonchi are heard. Cardio Palpation: normal PMI Rate: regular rate Rhythm: regular rhythm Heart sounds: no gallops and no murmurs Peripheral pulses: Peripheral pulses 2+ throughout GI Palpation (GI): Soft to palpation, nontender, No hepatosplenomegaly present and no masses Auscultation: normal bowel sounds Back/Spine/Pelvis Thoracic/Lumbar Spine: thoracic and lumbar spine normal to inspection Skin General skin exam: no rashes or lesions noted Neuro General: patient oriented x3 and no focal motor deficits Cranial nerves: Yes CN's II-XII intact bilaterally Extrem General: Yes normal to inspection, Yes no calf tenderness and Yes edema (Only trace of pitting edema around the ankles) Psych Appearance: grossly normal and well kempt Speech and movement: Normal speech and movement present Office Procedures Spirometry Testing Spirometry Comments: Spirometry done in the office, Dr. James has the results results scanned to her chart. [address]803- Spirometry Results Reviewed Results Reviewed: SPIROMETRY FVC 80%, FEV1 74%, FEV1/FVC 70 FEF 25-75 59% Assessment & Plan Assessment & Plan (1) COPD (chronic obstructive pulmonary disease): Comment: HAS CHRONIC OBSTRUCTIVE PULMONARY DISEASE, MODERATELY SEVERE, AND IT HAS BEEN WELL CONTROLLED WITH THE CURRENT REGIMEN. CURRENTLY SHE IS ON BREZTRI 160-4.8 2 PUFFS B.I.D. BUT TAKING MOSTLY IN THE MORNING . SHE IS USING ALBUTEROL ONLY SPARINGLY. Code(s): J44.9 - Chronic obstructive pulmonary disease, unspecified Category: Medical Plan: ADVISED TO CONTINUE SAME MEDICATION. FOR MORNING TIME MUCUS , USE STEAM INHALATION, AND MAY USE ALBUTEROL 1 OR 2 PUFFS IN THE MORNING HOURS. Orders: Orders AMB Spirometry Testing Today J44.9 - Chronic obstructive pulmonary disease, unspecified Coding Level of Care Code Est Pt Level 3 (08437) Diagnoses COPD (chronic obstructive pulmonary disease) J44.9 CPT Codes Spirometry - CPT: 48996- Spirometry ([id number])
== END 2025-07-04 10:55 | disposition home or self-care (01) ==
LOC: HO.HPS 09:52
PROVIDERS: PCP Internal Medicine; Visit Provider Internal Medicine
DX: J44.9 Chronic obstructive pulmonary disease, unspecified (principal)
CPT/HCPCS: 94010; 99213

== ENCOUNTER → 2025-07-04 09:52 | Outpatient (BNVA) | payer MEDICARE, SELFPAY | PROVIDERS: PCP Internal Medicine; Visit Provider Internal Medicine | DX: J44.9 Chronic obstructive pulmonary disease, unspecified (principal); Z87.891 Personal history of nicotine dependence | CPT/HCPCS: 94010; 99212 ==

== ENCOUNTER 2025-07-17 10:43 | Outpatient (AMB) | payer MEDICARE, SELFPAY ==
--- NOTE | 2025-07-17 10:45 | MHC.OFFVIS ---
Vital Signs 07/17/25 11:00 Height 5 ft 3 in Weight 152 lb BMI 26.9 Intake Visit Reasons: OV- Disscuss R CTR Intake Note: Laura is a 79 year old right hand dominant female who presents today for follow up of her Bilateral Carpal Tunnel Syndrome. Patient was last seen on 04/10/25 where Right Carpal Tunnel Release was discussed however patient wished to think about it further. Patient reports her symptoms have worsened. She feels like she does not feel when she is holding on to something. She has trouble doing things like holding a fork or writing. She is using hand braces periodically. She wishes to schedule surgery today. IMPRESSION 03/14/25: 1. This is an abnormal study. 2. There is electrodiagnostic evidence for bilateral severe median neuropathy at the wrist, consistent with carpal tunnel syndrome. 3. There is no electrodiagnostic evidence for ulnar neuropathy, brachial plexopathy, or cervical radiculopathy. Allergies magnesium Allergy (Intermediate, Verified 07/17/25 10:59) upset stomach spinal anesthesia Adverse Reaction (Severe, Uncoded 07/17/25 10:59) neuromonic shock HPI HPI OV- Disscuss R CTR: Details: Laura is a 79 year old right hand dominant female who presents today for follow up of her Bilateral Carpal Tunnel Syndrome. Patient was last seen on 04/10/25 where Right Carpal Tunnel Release was discussed however patient wished to think about it further. Patient reports her symptoms have worsened. She feels like she does not feel when she is holding on to something. She has trouble doing things like holding a fork or writing. She is using hand braces periodically. She wishes to schedule surgery today. IMPRESSION 03/14/25: 1. This is an abnormal study. 2. There is electrodiagnostic evidence for bilateral severe median neuropathy at the wrist, consistent with carpal tunnel syndrome. 3. There is no electrodiagnostic evidence for ulnar neuropathy, brachial plexopathy, or cervical radiculopathy. [facility] Medical History Colon cancer screening (~01/15/24) Atrial fibrillation Follow-up exam, 3-6 months since previous exam Overweight with body mass index (BMI) of 26 to 26.9 in adult History of mammogram (~08/2024) Carpal tunnel syndrome of right wrist History of bone density study (~10/08/23) Breast cancer screening by mammogram (~08/22/24) Abnormal inflammatory bowel disease panel Peripheral neuropathy Diverticulosis Essential hypertension Tubular adenoma History of diverticulitis Osteopenia Screening for diabetes mellitus COPD (chronic obstructive pulmonary disease) Surgical History History of colonoscopy (~11/28/21) History of partial hysterectomy History of hip replacement History of appendectomy Family History Father No problems noted. Mother No problems noted. Social History Housing: House Are you a primary field care advocate to a significant other at home: No Do you presently have visiting nurse or other home services: No Alcohol intake: current Alcohol intake frequency: 0-2 drinks per day Patient Tobacco Use Status: Former Tobacco user Tobacco use type: Cigarette e-Cigarette/Vaping Use: Never Used Second Hand Smoke Exposure: No service: No Current occupational status: retired Cognitive needs: No Hearing needs: No Vision needs: Yes (Contact lenses) Review of Systems Const All systems reviewed & are unremarkable except as noted in HPI and below Physical Exam Vital Signs: BMI result Body Mass Index 26.9 Extrem Other: Neuro: Diminished sensation in the median nerve distribution of right hand in the office today No thenar or intrinsic wasting. Good APB muscle firing and good finger cross. Vascular: Capillary refill brisk. ROM: Patient can make a fist and extend all their digits. Skin: No lacerations or abrasions noted. General: No ecchymosis. No erythema or evidence of infection. Assessment & Plan Assessment & Plan (1) Carpal tunnel syndrome of right wrist: Code(s): G56.01 - Carpal tunnel syndrome, right upper limb Category: Medical Plan 1. Right carpal tunnel syndrome Intermittent, daily, worse at night I educated the patient about the condition. I discussed both operative and nonoperative treatment options. The patient would like to proceed with surgery. The risks and benefits of operative treatment were discussed with the patient and the patient wishes to proceed with surgery. These risks include, but are not limited to, risk of damage to blood vessels, nerves, tendons, infection, recurrence, incomplete relief of preoperative symptoms, persistent pain, possible need for further surgery, and the risks associated with regional blocks and/or anesthesia. Plan is to take the patient to the operating room at some point in the next few weeks for the following procedures: 1. Right carpal tunnel release under local All of the preoperative paperwork including the consent was discussed today. All of the patient's questions were answered in the clinic today. The patient understands that they will be in contact with our neurosurgical nurse to discuss scheduling their procedure. Patient denies diabetes, blood thinners, asthma, heart issues, lung issues, kidney issues, or current smoking. Coding Level of Care Code Est Pt Level 4 (57456) Diagnoses Carpal tunnel syndrome of right wrist G56.01
[2025-07-17 11:00] VITALS: BMI 26.9
--- OUTSIDE RECORDS SUMMARY | 2025-07-17 12:40 | XMS_ITS | Data Portability ---
Author Organization [facility], [facility] [place] Address [address] [place] [address] Care Team Providers Care Territory Supervisor Name Role Phone THI SUÁREZ Referring Provider [phone] THI SUÁREZ Primary Care Provider Assessment Encounter [...] and lucid. Normal insight, affect and grooming. ASSISTANT SERVICE MANAGER: Gross motor coordination is intact. No spasticity [...] osteoarthrits of the bilateral knees. There is pxaa-qj-nuzs articulation, subchondral sclerosis, and osteophyte formation. Assessment: [...] questions or concerns that they might have. [email or web address] Not available 05/04/2024 12:33:50 05/18/2024 05/18/2024 Assessment: [...] is Dr. Suárez who is also her schedule clerk and her GI doctor, Dr. Lindsey. REVIEW [...] osteoarthritis of the bilateral knees. There is axvk-kx-jjyo articulation, subchondral sclerosis and osteophyte formation. Preoperative [...] a right total knee arthroplasty with Dr. Neley. CONTACTS: Her , Feng at [phone]. Prescriptions given at the time of the [...] XR, chest No observ ation record ed. [facility] [address] [place], [address], 06/03/2024 08:01:45 Result Notes None recorded. Problems Name Problem SNOMED Code Status Onset Date Resolution Date Notes Provider Name and Address Organization Details Recorded Time Osteoarthri tis of right knee joint 0616341756241 00 Active 2024 Gina Perez PA-C [address] [facility], [place], [address], [facility] 5 09:47:35 Problem Notes None recorded. Procedures Surgical History Date Name Laterality Status Provider Name and Address Organization Details Recorded Time 5 Gel-One Knee Injection completed Gina Perez PA-C [address], [place], [address], [facility] 02/21/2025 09:48:25 4 Gel-One Knee Injection completed Gina Perez PA-C [address], [place], [address], [facility] 07/26/2024 09:53:21 4 75407 Therapeutic Exercise (1:1) completed Alejandro Obregonser, PT [address], [place], [address], [facility] 05/17/2024 21:28:27 4 05363: Low complexity PT Eval completed Alejandro Ellis, PT [address], [place], [address], [facility] 05/17/2024 21:28:29 4 G8417 BMI Above Upper Parameters, F/U Documented completed Alejandro Ellis, PT [address], [place], [address], [facility] 05/17/2024 21:28:34 4 G8427 Current Medication Documented completed Alejandro Ellis, PT [address], [place], [address], [facility] 05/17/2024 21:28:53 4 Gel-One Knee Injection completed Laz Atkins PA-C [address] [facility], [place], [address], [facility] 01/18/2024 16:54:48 4 Sports Knee 4&1 completed Laz Atkins PA-C [address], [place], [address], [facility] 12/27/2023 11:19:20 Imaging Results None recorded. Procedure Notes None recorded. Medical Equipment None Reported. Allergies Allergen ID Allergen Name Allergen Category Reaction Reaction Severity Criticality Documentation Date Start Date Code Code System Note Provider Name and Address Organization Details Recorded Time 870037 magnesium medicatio n Not available Not available Not available 05/04/[address] [facility] 10:37:01 Medications Name Sig Start Date [...] MIX 238 GRAMS ORALLY ONCE DIRECTED BY [facility] 05/04 completed Not Available Not Available [...] Updated DateTime 02/21/2025 159.39 cm 26.6 kg/m2 36679.26 g [facility] 02/21/2025 09:04:14 Date Recorded Body height Body mass index (BMI) Body weight Provider Name and Address Organization Details Last Updated DateTime 05/04/2024 159.39 cm 26.8 kg/m2 67316.86 g DESTINEY SHAH [facility] 05/04/2024 10:36:26 Date Recorded Body height Body mass index (BMI) Body weight Provider Name and Address Organization Details Last Updated DateTime 05/29/2024 159.39 cm 26.6 kg/m2 36094.26 g NAPOLEON KAUR [facility] 05/29/2024 11:32:02 Date Recorded Body height Body mass index (BMI) Body weight Provider Name and Address Organization Details Last Updated DateTime 07/26/2024 159.39 cm 26.6 kg/m2 46620.26 g [facility] 07/26/2024 09:21:16 Social History Question Answer Notes LastModified by Organizat ion Details LastModified Time Tobacco Smoking Status Never Smoker [place] [place] [facility] 12/27/2023 08:51:44 Have You Ever Been Counseled For Unhealthy Alcohol Use? No Information not available 12/27/2023 Sex: Unknown Functional Status Question Answer Note LastModified by Organizat ion Details LastModified Time How many times per week do you consume alcohol? 1-2 times per week Information not available 12/27/2023 Do you use any illicit or recreational drugs? No Information not available 12/27/2023 Do you or have you ever used any other forms of tobacco or nicotine? No [email or web address] Information not available 12/27/2023 What is your level of alcohol consumption? Occasional stacijia Information not available 12/27/2023 Mental Status None recorded. Family History Nothing Reported. Medical History No medical history recorded. Gynecological HistoryNo gynecological history recorded. Obstetrics History GPAL:G 0 P 0 0 0 0 Past Encounters Encounter ID Performer Location Encounter Start Date Encounter Closed Date Diagnosis/Indication Diagnosis SNOMED-CT Code Diagnosis ICD10 Code Diagnosis IMO Codes Diagnosis Note [id number] JERMAINE Farris [address] [place] [address] 12/27/2023 08:15:04 12/27/2023 09:22:24 Pain of right knee joint 0790144916 91157 M25.561 Osteoarthr itis of right knee joint 8597519923 83065 M17.11 [id number] JERMAINE Farris [address] [place] [place] [address] 01/18/2024 16:26:06 01/28/2024 09:03:56 Osteoarthritis of right knee joint 2903977037 71440 M17.11 [id number] JERMAINE Pineda [address] [place] [address] 03/20/2024 11:07:04 04/18/2024 14:36:24 Osteoarthritis of right knee joint 2085017509 17459 M17.11 [id number] Fabian Neely MD [facility] [address] [place] [address] 05/04/2024 10:29:07 05/26/2024 09:24:38 Osteoarthritis of right knee joint 9776590366 55652 M17.11 [id number] Alejandro Pyser, PT [facility] [address] [place] [address] 05/18/2024 13:11:02 05/18/2024 14:57:47 Osteoarthritis of knee 558513985 M17.11 [id number] Kenneth Quintero, VP PUBLIC [employer] [address] [place] [address] 05/29/2024 11:20:11 06/15/2024 18:35:32 [id number] Gina Perez PA-C [facility] [address] [place] [address] 07/26/2024 09:08:08 08/18/2024 10:37:29 Osteoarthritis of right knee joint 8959538446 68645 M17.11 [id number] Gina Perez PA-C [facility] [address] [place] [address] 02/21/2025 09:00:22 03/02/2025 12:18:48 Osteoarthritis of right knee joint 4563639889 08619 M17.11 [id number] Health Concerns Section Related Observation LastModified by Organization Detai ls LastModified Time None Recorded Concern Status LastModified by Organization Details LastModified Time None Recorded Advance Directives Directive None Recorded Payers Insurance Date Sequence Insurance Name Policy Number Policy Christie Covered Member ID Christie Member ID Guarantor Name 03/02/2025 2 [place] [id number] Laura Maria [id number] Laura Maria 02/21/2025 1 [place] [employer] [place] Laura Maria [id number] Laura Maria Notes Date Note Type Note Provider Name and Address Organization Details Recorded Time 05/18/2024 text/html Patient is 78 year old female, pain started in April 2023 [...] 2006, Excellent Results Alejandro Ellis, PT [address], [place], [address], [facility] 05/18/2024 15:07:08 07/26/2024 text/html [...] arrest. She is following up with her functional skills tutor in September. Past family, medical, social history [...] next 24-48 hours. Follow-up as symptoms dictate. [facility] speech recognition systems analyst developer software was used to create portions of this document. An attempt at proofreading has been made to minimize errors. Please call for corrections. Gina Perez PA-C [address], [place], [address], [facility] 07/26/2024 09:53:39 02/21/2025 text/html [...] was in July. She continues to take lgzk-yoq-phxouov medication intermittently for her pain. Past family, [...] next 24-48 hours. Follow-up as symptoms dictate. [facility] speech recognition systems analyst developer software was used to create portions of this document. An attempt at proofreading has been made to minimize errors. Please call for corrections. Gina Perez PA-C [address] [place], [place] [address] [address], [place], [address], [facility] 02/21/2025 09:48:35 OBGyn Episode No OBEpisode recorded.
== END 2025-07-17 11:28 | disposition home or self-care (01) ==
LOC: HO.HOS 10:43
PROVIDERS: PCP Internal Medicine
DX: G56.01 Carpal tunnel syndrome, right upper limb (principal)
CPT/HCPCS: 99214

== ENCOUNTER → 2025-07-17 10:43 | Outpatient (BNVA) | payer MEDICARE, SELFPAY | PROVIDERS: PCP Internal Medicine | DX: G56.01 Carpal tunnel syndrome, right upper limb (principal) | CPT/HCPCS: 99212 ==

== ENCOUNTER 2025-08-02 10:29 | Outpatient (AMB) | payer MEDICARE, SELFPAY ==
--- NOTE | 2025-08-02 10:44 | A.OFFPC_ITS ---
Vital Signs 08/02/25 10:45 Height 5 ft 3 in Weight 154 lb 8 oz BMI 27.4 BP 110/62 Blood Pressure Location Lt brachial Position Sitting Temp 96.6 F L Temp Source Temporal Artery Scan Intake Visit Reasons: 6 month follow up Intake Note: Patient is here to follow up on Afib, HTN, COPD, IBS. Web Site Designer Required: No Web Press Jogger: Not Required per policy Accompanied by: Self / Same As Patient Allergies magnesium Allergy (Intermediate, Verified 08/02/25 10:45) upset stomach spinal anesthesia Adverse Reaction (Severe, Uncoded 08/02/25 10:45) neuromonic shock Tobacco use date assessed: 08/02/25 Fall risk assessment: No Falls in past year Last assessed Fall Risk: 08/02/25 Dental Screening Dental Screen Date: 01/04/25 [facility] Medical History Colon cancer screening (~01/15/24) Atrial fibrillation Follow-up exam, 3-6 months since previous exam Overweight with body mass index (BMI) of 26 to 26.9 in adult History of mammogram (~08/2024) Carpal tunnel syndrome of right wrist History of bone density study (~10/08/23) Breast cancer screening by mammogram (~08/22/24) Abnormal inflammatory bowel disease panel Peripheral neuropathy Diverticulosis Essential hypertension Tubular adenoma History of diverticulitis Osteopenia Screening for diabetes mellitus COPD (chronic obstructive pulmonary disease) Surgical History History of colonoscopy (~11/28/21) History of partial hysterectomy History of hip replacement History of appendectomy Family History Father No problems noted. Mother No problems noted. Social History Housing: House Are you a primary care provider to a significant other at home: No Do you presently have visiting nurse or other home services: No Alcohol intake: current Alcohol intake frequency: 0-2 drinks per day Patient Tobacco Use Status: Former Tobacco user Tobacco use type: Cigarette e-Cigarette/Vaping Use: Never Used Second Hand Smoke Exposure: Yes service: No Current occupational status: retired Cognitive needs: No Hearing needs: No Vision needs: Yes (Contact lenses) Questionnaire PHQ-9 Over the last 2 weeks, how often have you been bothered by any of the following problems? 1. Little interest or pleasure in doing things: not at all 2. Feeling down, depressed, or hopeless: not at all 3. Trouble falling or staying asleep, or sleeping too much: not at all 4. Feeling tired or having little energy: not at all 5. Poor appetite or overeating: not at all 6. Feeling bad about yourself - or that you are a failure or have let yourself or your family down: not at all 7. Trouble concentrating on things, such as reading the newspaper or watching television: not at all 8. Moving or speaking so slowly that other people could have noticed. Or the opposite - being so fidgety or restless that you have been moving around a lot more than usual: not at all 9. Thoughts that you would be better off or of hurting yourself in some way: not at all Total score: 0 Depression Screening Interpretation: Negative Depression Screening Done: Yes Source: Developed by Drs. Dm Medina, Sabrina Lora, Junito Iyer and colleagues, with an educational janessa from [employer]. Thrive Questionnaire Date Thrive assessed: 07/27/25 I am a: Patient What is your living situation today?: I have a steady place to live Within the past 12 months, did the food you bought not last and you didn't have the money to get more?: Never true Within the past 12 months, did you worry whether your food would run out before you got money to buy more?: Never true Do you have trouble paying for medicines?: No Do you have trouble getting transportation to medical appointments?: No Do you have trouble paying your heating and electricity bill?: No Do you have trouble taking care of your child, family member or friend?: No Do you have trouble with day-to-day activities such as bathing, preparing meals, shopping, managing finances, etc.?: No Are you currently unemployed and looking for a job?: No Are you interested in more education?: No Please select the resources that you would like help with: None Currently or been in a relationship where the following occur: No concerns reported THRIVE Score: 0 AUDIT C Alcohol Use Questionnaire (AUDIT-C) 1. How often do you have a drink containing alcohol?: 4 or more times a week 2. How many drinks containing alcohol do you have on a typical day when you are drinking?: 1 or 2 Total Score: 4 ABDIRASHID-7 AMB Questionnaire ABDIRASHID-7 Date ABDIRASHID - 7 assessed: 01/04/25 Feeling nervous, anxious, or on edge: 0 = Not at all Not being able to stop or control worryin = Not at all Worrying too much about different things: 0 = Not at all Trouble relaxin = Not at all Being so restless that it is hard to sit still: 0 = Not at all Becoming easily annoyed or irritable: 0 = Not at all Feeling afraid as if something awful might happen: 0 = Not at all Total ABDIRASHID-7 score (0-4 normal; 5-9 mild; 10-14 moderate; 15-21 severe): 0 Source: Developed by Drs. Dm Medina, Sabrina Lora, Junito Iyer and colleagues, with an educational janessa from [employer]. Physical exam (Primary Care) Vital Signs: Last Vital Signs Temp 96.6 F L 08/02/25 10:45 BP 110/62 08/02/25 10:45 BMI result Body Mass Index 27.4 Tobacco/Smoking Status: Tobacco use Status Tobacco use date assessed 08/02/25 08/02/25 10:51 Patient Tobacco Use Status Former Tobacco user 08/02/25 10:51 Tobacco use type Cigarette 08/02/25 10:51 e-Cigarette/Vaping Use Never Used 08/02/25 10:51 PHQ-9: PHQ-9 Score PHQ-9: Total score 0 08/02/25 10:51 Depression Screening Interpretation: Negative Thrive Assessment: Date of Thrive Assessment Date Thrive assessed 07/27/25 08/02/25 10:51 Currently or been in a relationship where the following occur: No concerns reported Coding Level of Care Code Est Pt Level 4 (13818) Complex EM visit Add On G2211 Diagnoses Essential hypertension I10 Assessment & Plan Assessment & Plan (1) Essential hypertension: Code(s): I10 - Essential (primary) hypertension Category: Medical Plan: History of Present Illness - The patient is a 79-year-old female presenting with rosacea and carpal tunnel syndrome. - Rosacea: The patient experiences small, non-pustular blemishes on her face, particularly on the cheeks, which are erythematous but not itchy. Treatment includes a metrogel wash and oral medication. - Carpal tunnel syndrome: Scheduled for surgery in October, the patient finds the condition manageable and plans the surgery around her 's health issues. - Hypertension: The patient's blood pressure is well-controlled, and she reports feeling good. - Atrial fibrillation (resolved): After wearing a groundwater monitoring technician, the patient was found not to have atrial fibrillation and has stopped taking Eliquis. Social History Review of Systems - Dermatological: Reports erythematous areas on the cheeks, denies itching. - Cardiovascular: Denies atrial fibrillation, reports well-controlled blood pressure. Physical Exam General: Cooperative and healthy appearing Nutritional Appearance: Well nourished Orientation/consciousness: Patient oriented x3 Limitations: No limitations Head: Normal to inspection General: Appearance normal, both eyes and all related structures Neck: Normal visual inspection Chest: Normal palpation of entire chest wall Respiratory: Normal respiratory effort Neurology: Patient oriented x3 Results Plan - Prescribe metrogel wash and oral medication for rosacea management. - Schedule carpal tunnel surgery for October, with the option to cancel if necessary. Discussion Notes I discussed with the patient the diagnosis of rosacea and the treatment plan involving a metrogel wash and oral medication. We also reviewed the plan for her upcoming carpal tunnel surgery, ensuring she is aware of the option to cancel if her 's health issues persist. Additionally, we confirmed the resolution of her atrial fibrillation and the discontinuation of Eliquis. Patient Instructions - Use the prescribed metrogel wash and take the oral medication as directed for rosacea. - Prepare for carpal tunnel surgery in October, but remember you can cancel if needed.
[2025-08-02 10:45] VITALS: BP 110/62; TEMP 35.9; BMI 27.4
--- OUTSIDE RECORDS SUMMARY | 2025-08-02 12:48 | XMS_ITS | Data Portability ---
Author Organization [facility], [facility] [place] Address [address] [place] [address] Care Team Providers Care Pre Sales Systems Engineer Name Role Phone THI SUÁREZ Referring Provider [phone] THI SUÁREZ Primary Care Provider Assessment Encounter [...] and lucid. Normal insight, affect and grooming. 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 No spasticity [...] osteoarthrits of the bilateral knees. There is svvr-jf-rtqd articulation, subchondral sclerosis, and osteophyte formation. Assessment: [...] questions or concerns that they might have. [email or web address] Not available 05/04/2024 12:33:50 05/18/2024 05/18/2024 Assessment: [...] is Dr. Suárez who is also her dry cans operator and her GI doctor, Dr. Lindsey. REVIEW [...] osteoarthritis of the bilateral knees. There is ntsv-pm-bugj articulation, subchondral sclerosis and osteophyte formation. Preoperative [...] Dr. Neely. CONTACTS: Her , Feng at [phone]. Prescriptions given at the time of the history and physical include none. She will require prescription for Colace, Eliquis, pantoprazole and pain medication at the time of discharge. [email or web address] Not available 05/29/2024 14:45:10 Plan of Treatment Reminders Order Date Submit Date Provider Last Modified By Organization Details Last Modified Time Details Appointments INJECTION ONLY 15 2024 10:45A M Laz Atkins PA-C Not available Not available Not available Lab None recorded. Referral None recorded. Procedures None recorded. Surgeries None recorded. Imaging None recorded. Medication Orders None recorded. Patient TargetsNo targets recorded. Patient InstructionsNo instructions recorded. Reason for Referral None Reported. Results Created Date Observation Date Name Description Value Unit Range Abnormal Flag Note LastModifiedBy Organization Detail LastModifiedTime 06/02/20 24 06/02/2024 XR, chest No observ ation record ed. [facility] [address], [place], [address], 06/03/2024 08:01:45 Result Notes None recorded. Problems Name Problem SNOMED Code Status Onset Date Resolution Date Notes Provider Name and Address Organization Details Recorded Time Osteoarthri tis of right knee joint 4418344311917 00 Active 2024 Gina Perez PA-C [address], [place], [address], [facility] 09:47:35 Problem Notes None recorded. Procedures Surgical History Date Name Laterality Status Provider Name and Address Organization Details Recorded Time 5 Gel-One Knee Injection completed Gina Perez PA-C [address] [facility] [place], [place], [address], [facility] 02/21/2025 09:48:25 4 Gel-One Knee Injection completed Gina Perez PA-C [address], [place], [address], [facility] 07/26/2024 09:53:21 4 31742 Therapeutic Exercise (1:1) completed Alejandro Mindiser, PT [address], [place], [address], [facility] 05/17/2024 21:28:27 4 74236: Low complexity PT Eval completed Alejandro Pyser, PT [address], [place], [address], [facility] 05/17/2024 21:28:29 4 G8417 BMI Above Upper Parameters, F/U Documented completed Alejandro Mindiser, PT [address], [place], [address], [facility] 05/17/2024 21:28:34 4 G8427 Current Medication Documented completed Alejandro Obregonser, PT [address], [place], [address], [facility] 05/17/2024 21:28:53 4 Gel-One Knee Injection completed Laz Atkins PA-C [address], [place], [address], [facility] 01/18/2024 16:54:48 4 Sports Knee 4&1 completed Laz Atkins PA-C [address] [facility] [place], [place], [address], [facility] 12/27/2023 11:19:20 Imaging Results None recorded. Procedure Notes None recorded. Medical Equipment None Reported. Allergies Allergen ID Allergen Name Allergen Category Reaction Reaction Severity Criticality Documentation Date Start Date Code Code System Note Provider Name and Address Organization Details Recorded Time 506830 magnesium medicatio n Not available Not available Not available 05/04/2024 6574 [facility] 10:37:01 Medications Name Sig Start Date [...] ORALLY ONCE DIRECTED BY [facility] 05/04 completed Not Available Not Available [...] Updated DateTime 02/21/2025 159.39 cm 26.6 kg/m2 48008.26 g [facility] 02/21/2025 09:04:14 Date Recorded Body height Body mass index (BMI) Body weight Provider Name and Address Organization Details Last Updated DateTime 05/04/2024 159.39 cm 26.8 kg/m2 88867.86 g DESTINEY SHAH [facility] 05/04/2024 10:36:26 Date Recorded Body height Body mass index (BMI) Body weight Provider Name and Address Organization Details Last Updated DateTime 05/29/2024 159.39 cm 26.6 kg/m2 37128.26 g NAPOLEON KAUR [facility] 05/29/2024 11:32:02 Date Recorded Body height Body mass index (BMI) Body weight Provider Name and Address Organization Details Last Updated DateTime 07/26/2024 159.39 cm 26.6 kg/m2 10121.26 g [facility] 07/26/2024 09:21:16 Social History Question Answer Notes LastModified by Organizat ion Details LastModified Time Tobacco Smoking Status Never Smoker MADELAINE MICHELLE hunt [place] [facility] [place] [facility] 12/27/2023 08:51:44 Have You Ever Been Counseled For Unhealthy Alcohol Use? No [email or web address] Information not available 12/27/2023 Sex: Unknown Functional Status Question Answer Note LastModified by Organizat ion Details LastModified Time How many times per week do you consume alcohol? 1-2 times per week [email or web address] Information not available 12/27/2023 Do you use any illicit or recreational drugs? No Information not available 12/27/2023 Do you or have you ever used any other forms of tobacco or nicotine? No [email or web address] Information not available 12/27/2023 What is your level of alcohol consumption? Occasional Information not available 12/27/2023 Mental Status None recorded. Family History Nothing Reported. Medical History No medical history recorded. Gynecological HistoryNo gynecological history recorded. Obstetrics History GPAL:G 0 P 0 0 0 0 Past Encounters Encounter ID Performer Location Encounter Start Date Encounter Closed Date Diagnosis/Indication Diagnosis SNOMED-CT Code Diagnosis ICD10 Code Diagnosis IMO Codes Diagnosis Note [id number] JERMAINE Farris [address] [place] [address] 12/27/2023 08:15:04 12/27/2023 09:22:24 Pain of right knee joint 6844318552 62169 M25.561 Osteoarthr itis of right knee joint 3383299863 76233 M17.11 [id number] JERMAINE Farris [address] [place] [address] 01/18/2024 16:26:06 01/28/2024 09:03:56 Osteoarthritis of right knee joint 5749793216 05035 M17.11 [id number] JERMAINE Pineda [address] [place] [address] 03/20/2024 11:07:04 04/18/2024 14:36:24 Osteoarthritis of right knee joint 5940138087 42246 M17.11 [id number] MD [facility] [address] [place] [id number] 05/04/2024 10:29:07 05/26/2024 09:24:38 Osteoarthritis of right knee joint 1170289027 11209 M17.11 [id number] Alejandro Pyser, PT [facility] [address] [place] [address] 05/18/2024 13:11:02 05/18/2024 14:57:47 Osteoarthritis of knee 220433808 M17.11 [id number] Kenneth Quintero, RAGHU [facility] [address] [place] [address] 05/29/2024 11:20:11 06/15/2024 18:35:32 [id number] Gina Perez PA-C [facility] [address] [place] [address] 07/26/2024 09:08:08 08/18/2024 10:37:29 Osteoarthritis of right knee joint 7375547354 53960 M17.11 [id number] Gina Perez PA-C [facility] [address] [place] [address] 02/21/2025 09:00:22 03/02/2025 12:18:48 Osteoarthritis of right knee joint 3103347689 01263 M17.11 [id number] Health Concerns Section Related Observation LastModified by Organization Detai ls LastModified Time None Recorded Concern Status LastModified by Organization Details LastModified Time None Recorded Advance Directives Directive None Recorded Payers Insurance Date Sequence Insurance Name Policy Number Policy Christie Covered Member ID Christie Member ID Guarantor Name 03/02/2025 2 [place] [id number] Laura Maria [id number] Laura Maria 02/21/2025 1 [place] [employer] Laura Maria [id number] Laura Maria Notes Date Note Type [...] car transfers, and housework w/o pain. Watch [employer] sports, walk on beach. H/o B THR: R 2005, L 2006, Excellent Results Alejandro Ellis, PT [address] [facility], [place], [address], [facility] 05/18/2024 15:07:08 07/26/2024 text/html I am seeing [...] arrest. She is following up with her physiognomist in September. Past family, medical, social history [...] next 24-48 hours. Follow-up as symptoms dictate. [facility] speech recognition tmd teacher assistant software was used to create portions of this document. An attempt at proofreading has been made to minimize errors. Please call for corrections. Gina Perez PA-C [address], [place], [address], [facility] 07/26/2024 09:53:39 02/21/2025 text/html I am [...] was in July. She continues to take nqmv-vng-olyvwvx medication intermittently for her pain. Past family, [...] next 24-48 hours. Follow-up as symptoms dictate. [facility] speech recognition tmd teacher assistant software was used to create portions of this document. An attempt at proofreading has been made to minimize errors. Please call for corrections. Gina Perez PA-C [address], [place], [address], [facility] 02/21/2025 09:48:35 OBGyn Episode No OBEpisode recorded.
== END 2025-08-02 11:13 | disposition home or self-care (01) ==
LOC: HO.HMCH 10:30
PROVIDERS: PCP Internal Medicine; Visit Provider Internal Medicine
DX: I10 Essential (primary) hypertension (principal)

== ENCOUNTER → 2025-08-02 10:29 | Outpatient (BNVA) | payer MEDICARE, SELFPAY | PROVIDERS: PCP Internal Medicine; Visit Provider Internal Medicine | DX: I10 Essential (primary) hypertension (principal) | CPT/HCPCS: 99212 ==

== ENCOUNTER 2025-08-27 08:35 | Outpatient (AMB) | payer MEDICARE, SELFPAY ==
--- NOTE | 2025-08-27 08:38 | A.OFFVIS_ITS ---
Vital Signs 08/27/25 08:45 Height 5 ft 3 in Weight 152 lb BMI 26.9 BP 128/66 Blood Pressure Location Rt brachial Position Sitting Pulse 92 Pulse Source Pulse Oximeter Pulse Oximetry (%) 98 Oxygen Delivery Method Room Air Intake Visit Reasons: 4 mo f/u Intake Note: Est pt for mgmt of IBS-C. CC; C.O. LLQ pain onset of yesterday. Pt states that she had a brief episode of constipation recently as well and is concerned that this may be a flare up of diverticulitis. No additional sx or concerns at this time. 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 We will send her to check fecal calprotectin. Inflammatory bowel disease promethius lab was negative for inflammatory bowel disease. Patient however was encouraged to take more fiber to help her bulk her stool. Avoid using loperamide as this will complicate and patient will end up with diverticulitis. Patient has severe diverticulosis throughout the entire colon. Increase fluid intake and activity to promote better bowel motility. Patient will follow-up in 3-4 months, sooner on as needed basis. She is agreeable to this plan and verbalizes understanding of instructions. She was given the opportunity to ask questions and all questions answered. ? Thank you for allowing me to participate in her care Orders Calprotectin, Fecal Today R15.9 TODAY'S VISIT Patient is here today for follow-up. Patient reports that she has been doing well. Patient reports that she had not had abdominal pain or what would feel like diverticulitis in the long time, however patient reports that last night she had left lower and upper abdominal pain. Patient reports that she was constipated on Wednesday and Wednesday and last night developed pain. She is taking Colace in the evening and fiber supplement in the morning. Patient reports that she has been drinking fluids were, however still was constipated for couple days. Patient reports that until yesterday she was having normal bowel movements every morning. Patient reports stress S her 's cancer came back and he is going for chemo treatments daily. Patient no longer has to drive with her [facility] they are having the treatments local with Dr. Yanes. Patient denies melena, hematochezia, unintentional weight loss or ribbon like stools. Patient denies any dyspepsia, dysphagia or odynophagia. [facility] Medical History Colon cancer screening (~01/15/24) Atrial fibrillation Follow-up exam, 3-6 months since previous exam Overweight with body mass index (BMI) of 26 to 26.9 in adult History of mammogram (~08/2024) Carpal tunnel syndrome of right wrist History of bone density study (~10/08/23) Breast cancer screening by mammogram (~08/22/24) Abnormal inflammatory bowel disease panel Peripheral neuropathy Diverticulosis Essential hypertension Tubular adenoma History of diverticulitis Osteopenia Screening for diabetes mellitus COPD (chronic obstructive pulmonary disease) Surgical History History of colonoscopy (~11/28/21) History of partial hysterectomy History of hip replacement History of appendectomy Family History Father No problems noted. Mother No problems noted. Social History Housing: House Are you a primary resident care coordinator to a significant other at home: No Do you presently have visiting nurse or other home services: No Alcohol intake: current Alcohol intake frequency: 0-2 drinks per day Patient Tobacco Use Status: Former Tobacco user Tobacco use type: Cigarette e-Cigarette/Vaping Use: Never Used Second Hand Smoke Exposure: Yes service: No Current occupational status: retired Cognitive needs: No Hearing needs: No Vision needs: Yes (Contact lenses) Review of Systems Const Denies weight gain and Denies weight loss ENT Reports no additional complaints, Denies dysphagia and Denies odynophagia Card Reports no additional complaints Resp Reports no additional complaints GI Reports abdominal pain (LLQ), Denies belching, Denies melena, Denies bloating, Denies change in bowel habits, Reports constipation, Denies dysphagia, Denies excessive flatus, Denies dyspepsia, Denies heartburn, Denies diarrhea, Reports loose stools, Denies nausea, Denies odynophagia and Denies vomiting Reports no additional complaints Musc Reports no additional complaints Neuro Reports no additional complaints Psych Reports no additional complaints Endo Reports no additional complaints Physical Exam Vital Signs: BMI result Body Mass Index 26.9 Const General: healthy appearing, no acute distress and well developed Nutritional Appearance: well nourished Orientation/consciousness: patient oriented x3 Resp Effort & Inspection: normal respiratory effort, able to speak in complete sentences, no tracheal deviation and symmetric chest movement Auscultation: clear to auscultation bilaterally Cardio Rate: regular rate GI Inspection: Yes normal to inspection and No distended Palpation (GI): Soft to palpation, not firm, nontender and No hepatosplenomegaly present Auscultation: normal bowel sounds General: Yes no CVA tenderness Back/Spine/Pelvis Back: no CVA tenderness Skin General skin exam: elasticity normal, turgor normal and dry skin Neuro General: patient oriented x3 Psych Appearance: grossly normal Mental Status: mental status grossly normal Assessment & Plan Assessment & Plan (1) Irritable bowel syndrome: Code(s): K58.9 - Irritable bowel syndrome, unspecified Category: Medical Qualifiers: Irritable bowel syndrome type: with both diarrhea and constipation Qualified Code(s): K58.2 - Mixed irritable bowel syndrome (2) Diverticulosis: Code(s): K57.90 - Diverticulosis of intestine, part unspecified, without perforation or abscess without bleeding Category: Medical (3) Abnormal inflammatory bowel disease panel: Code(s): R85.7 - Abnormal histological findings in specimens from digestive organs and abdominal cavity Category: Medical Plan Patient will start Cipro. Will increase stool softeners to 2 capsules daily. Patient was encouraged to increase fluid intakeactivity to promote bowel motilit y. Patient was encouraged to follow FODMAP diet. List of food recommended as well as list of food to avoid given to patient. Patient will return to the office in 6 months, sooner on as needed basis. She is agreeable to this plan and verbalizes understanding of instructions. She was given the opportunity to ask questions and all questions answered. Thank you for allowing me to participate in her care is as Medications: New ciprofloxacin HCl 500 mg PO BID 14 tabs 1RF Changed From docusate sodium 100 mg PO BEDTIME 90 caps 4RF K59.00 - Constipation, unspecified To docusate sodium 200 mg (2 x 100 mg) PO BEDTIME 180 caps 4RF K59.00 - Constipation, unspecified Coding Level of Care Code Est Pt Level 4 (00562) Complex visit Add On G2211 Diagnoses Irritable bowel syndrome with both constipation and diarrhea K58.2 Irritable bowel syndrome type: with both diarrhea and constipation Diverticulosis K57.90 Abnormal inflammatory bowel disease panel R85.7 Time Spent (min) 35 Comment 25 minutes spent with patient and additional 10 minutes spent reviewing her records
[2025-08-27 08:45] VITALS: BP 128/66; PULSE 92; O2SAT 98; BMI 26.9
--- OUTSIDE RECORDS SUMMARY | 2025-08-27 08:53 | XMS_ITS | Data Portability ---
Author Organization [facility], [facility], [facility] [place] Address [address] [place] [address] Care Team Providers Care Audio Visual Production Specialist Name Role Phone THI SUÁREZ Referring Provider [phone] THI SUÁREZ Primary Care Provider Assessment Encounter [...] and lucid. Normal insight, affect and grooming. 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 No spasticity [...] osteoarthrits of the bilateral knees. There is cgrp-dg-trby articulation, subchondral sclerosis, and osteophyte formation. Assessment: [...] questions or concerns that they might have. [email or web address] Not available 05/04/2024 12:33:50 05/18/2024 05/18/2024 Assessment: [...] is Dr. 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 Lindsey. REVIEW [...] osteoarthritis of the bilateral knees. There is nggz-jy-xcmq articulation, subchondral sclerosis and osteophyte formation. Preoperative [...] Dr. Neely. CONTACTS: Her , Feng at [phone]. Prescriptions given at the time of the [...] XR, chest No observ ation record ed. [facility] [address] [facility], [place], [address], 06/03/2024 08:01:45 Result Notes None recorded. Problems Name Problem SNOMED Code Status Onset Date Resolution Date Notes Provider Name and Address Organization Details Recorded Time Osteoarthri tis of right knee joint 6331835924804 00 Active 2024 Gina Perez PA-C [address], [place], [address], [facility] 09:47:35 Problem Notes None recorded. Procedures Surgical History Date Name Laterality Status Provider Name and Address Organization Details Recorded Time 5 Gel-One Knee Injection completed Gina Perez PA-C [address] [facility], [place], [address], [facility] 02/21/2025 09:48:25 4 Gel-One Knee Injection completed Gina Perez PA-C [address], [place], [address], [facility] 07/26/2024 09:53:21 4 02125 Therapeutic Exercise (1:1) completed Alejandro Mindiser, PT [address], [place], [address], [facility] 05/17/2024 21:28:27 4 12588: Low complexity PT Eval completed Alejandro Pyser, PT [address], [place], [address], [facility] 05/17/2024 21:28:29 4 G8417 BMI Above Upper Parameters, F/U Documented completed Alejandro Mindiser, PT [address], [place], [address], [facility] 05/17/2024 21:28:34 4 G8427 Current Medication Documented completed Alejandro Obregonser, PT [address], [place], [address], [facility] 05/17/2024 21:28:53 4 Gel-One Knee Injection completed Laz Atkins PA-C [address], [place], [address], [facility] 01/18/2024 16:54:48 4 Sports Knee 4&1 completed Laz Atkins PA-C [address] [facility], [place], [address], [facility] 12/27/2023 11:19:20 Imaging Results None recorded. Procedure Notes None recorded. Medical Equipment None Reported. Allergies Allergen ID Allergen Name Allergen Category Reaction Reaction Severity Criticality Documentation Date Start Date Code Code System Note Provider Name and Address Organization Details Recorded Time 236518 magnesium medicatio n Not available Not available Not available 05/04/2024 6574 [facility] 10:37:01 Medications Name Sig Start [...] MIX 238 GRAMS ORALLY ONCE DIRECTED BY [facility] DEPART[facility] T AT [facility] 05/04 completed Not Available Not Available Not [...] Updated DateTime 02/21/2025 159.39 cm 26.6 kg/m2 72706.26 g [facility] 02/21/2025 09:04:14 Date Recorded Body height Body mass index (BMI) Body weight Provider Name and Address Organization Details Last Updated DateTime 05/04/2024 159.39 cm 26.8 kg/m2 40622.86 g DESTINEY SHAH [facility] 05/04/2024 10:36:26 Date Recorded Body height Body mass index (BMI) Body weight Provider Name and Address Organization Details Last Updated DateTime 05/29/2024 159.39 cm 26.6 kg/m2 81305.26 g NAPOLEON KAUR [facility] 05/29/2024 11:32:02 Date Recorded Body height Body mass index (BMI) Body weight Provider Name and Address Organization Details Last Updated DateTime 07/26/2024 159.39 cm 26.6 kg/m2 07368.26 g [facility] 07/26/2024 09:21:16 Social History Question Answer Notes LastModified by Organizat ion Details LastModified Time Tobacco Smoking Status Never Smoker MADELAINE MICHELLE hunt [place] - [facility] 12/27/2023 08:51:44 Have You Ever [...] ICD10 Code Diagnosis IMO Codes Diagnosis Note [id number] JERMAINE Farris [address] [place] [address] 12/27/2023 08:15:04 12/27/2023 09:22:24 Pain of right knee joint 3993014831 47789 M25.561 Osteoarthr itis of right knee joint 6611729722 85462 M17.11 [id number] JERMAINE Farris [address] [place] [address] 01/18/2024 16:26:06 01/28/2024 09:03:56 Osteoarthritis of right knee joint 9918496556 04405 M17.11 [id number] JERMAINE Pineda [address] [place] [address] 03/20/2024 11:07:04 04/18/2024 14:36:24 Osteoarthritis of right knee joint 5210429327 59013 M17.11 [id number] MD Froylna [facility] [address] [place] [address] 05/04/2024 10:29:07 05/26/2024 09:24:38 Osteoarthritis of right knee joint 3701773791 48244 M17.11 [id number] Alejandro Pyser, PT [facility] [address] [place] [address] 05/18/2024 13:11:02 05/18/2024 14:57:47 Osteoarthritis of knee 665089263 M17.11 [id number] Kenneth Quintero, RAGHU [address] [place] [address] 05/29/2024 11:20:11 06/15/2024 18:35:32 [id number] Gina Perez PA-C [facility] [place] [address] 07/26/2024 09:08:08 08/18/2024 10:37:29 Osteoarthritis of right knee joint 5224200808 65635 M17.11 [id number] Gina Perez PA-C [facility] - [facility] [address] [place] [address] 02/21/2025 09:00:22 03/02/2025 12:18:48 Osteoarthritis of right knee joint 6378920783 92422 M17.11 [id number] Health Concerns Section Related Observation LastModified by Organization Detai ls LastModified Time None Recorded Concern Status LastModified by Organization Details LastModified Time None Recorded Advance Directives Directive None Recorded Payers Insurance Date Sequence Insurance Name Policy Number Policy Christie Covered Member ID Christie Member ID Guarantor Name 03/02/2025 2 [place] [id number] Laura Maria [id number] Laura Maria 02/21/2025 1 [place] [employer] Laura Maria [id number] Laura Maria Notes Date Note Type [...] car transfers, and housework w/o pain. Watch [employer] sports, walk on beach. H/o B THR: R 2005, L 2006, Excellent Results Alejandro Ellis, PT [address], [place], [address], [facility] 05/18/2024 15:07:08 07/26/2024 text/html I am [...] arrest. She is following up with her experimental plastics fabricator in September. Past family, medical, social history [...] next 24-48 hours. Follow-up as symptoms dictate. [facility] speech recognition global program manager software was used to create portions of this document. An attempt at proofreading has been made to minimize errors. Please call for corrections. Gina Perez PA-C [address], [place], [address], [facility] 07/26/2024 09:53:39 02/21/2025 text/html I am [...] was in July. She continues to take ihrd-xoy-zlptfkf medication intermittently for her pain. Past family, [...] next 24-48 hours. Follow-up as symptoms dictate. [facility] speech recognition global program manager software was used to create portions of this document. An attempt at proofreading has been made to minimize errors. Please call for corrections. Gina Perez PA-C [address], [place], [address], [facility] 02/21/2025 09:48:35 OBGyn Episode No OBEpisode recorded.
== END 2025-08-27 09:05 | disposition home or self-care (01) ==
LOC: HO.HGI 08:36
PROVIDERS: PCP Internal Medicine; Visit Provider Nurse Practitioner Family
DX: K58.2 Mixed irritable bowel syndrome (principal); K57.90 Diverticulosis of intestine, part unspecified, without perforation or abscess without bleeding; R85.7 Abnormal histological findings in specimens from digestive organs and abdominal cavity
CPT/HCPCS: 99214; G2211

== ENCOUNTER → 2025-08-27 08:35 | Outpatient (BNVA) | payer MEDICARE, SELFPAY | PROVIDERS: PCP Internal Medicine; Visit Provider Nurse Practitioner Family | DX: K58.2 Mixed irritable bowel syndrome (principal); R10.32 Left lower quadrant pain; K57.90 Diverticulosis of intestine, part unspecified, without perforation or abscess without bleeding; R85.7 Abnormal histological findings in specimens from digestive organs and abdominal cavity; Z87.891 Personal history of nicotine dependence | CPT/HCPCS: 99212 ==

== ENCOUNTER 2025-08-29 07:48 | Outpatient (REF) | payer MEDICARE, SELFPAY ==
--- NOTE | ~2025-08-29 | MM_ITS ---
EXAMINATION: MM SCREENING DIGITAL BREAST TOMOSYNTHESIS, BILATERAL CLINICAL INFORMATION: Screening. Asymptomatic. COMPARISON: Comparison made to multiple prior, most recent August 22, 2024, and most remote July 18, 2018. TECHNIQUE: Digital breast tomosynthesis is performed in mediolateral oblique and craniocaudal views along with computer-aided detection (CAD). Synthesized 2D images are generated from the tomosynthesis. FINDINGS: BREAST COMPOSITION: The breasts are heterogeneously dense, which may obscure small masses. BILATERAL BREASTS: No significant masses, suspicious calcifications or other abnormalities are seen in either breast. MM/MM tomosynthesis screening BI IMPRESSION: BILATERAL BREASTS: Negative, no mammographic evidence of malignancy. Normal interval follow-up is recommended in 12 months. ASSESSMENT: BI-RADS: Category 1: Negative RECOMMENDATION: Routine annual mammography screening. FOLLOW-UP: 1 year F/U This examination should not preclude the clinical evaluation of a suspicious palpable abnormality. This patient's information was entered into a reminder system with a target due date for their next mammogram. Electronically signed by: Flavio Ordonez MD 08/29/2025 07:50 PM [facility]
--- OUTSIDE RECORDS SUMMARY | 2025-08-29 07:52 | XMS_ITS | Data Portability ---
Author Organization [facility], [facility] [place] Address [address] [place] [address] Care Team Providers Care Sand Screener Name Role Phone THI SUÁREZ Referring Provider [phone] THI SUÁREZ Primary Care Provider Assessment Encounter [...] and lucid. Normal insight, affect and grooming. 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 No spasticity [...] osteoarthrits of the bilateral knees. There is ijpi-pz-ezed articulation, subchondral sclerosis, and osteophyte formation. Assessment: [...] questions or concerns that they might have. [email or web address] Not available 05/04/2024 12:33:50 05/18/2024 05/18/2024 Assessment: [...] is Dr. Suárez who is also her bung driver and her GI doctor, Dr. Lindsey. REVIEW [...] osteoarthritis of the bilateral knees. There is zsoo-ib-fgot articulation, subchondral sclerosis and osteophyte formation. Preoperative [...] Dr. Neely. CONTACTS: Her , Feng at [phone]. Prescriptions given at the time of the [...] XR, chest No observ ation record ed. [facility] [address] [facility], [place], [address], 06/03/2024 08:01:45 Result Notes None recorded. Problems Name Problem SNOMED Code Status Onset Date Resolution Date Notes Provider Name and Address Organization Details Recorded Time Osteoarthri tis of right knee joint 2317400904485 00 Active 2024 Gina Perez PA-C [address], [place], [address], [facility] 09:47:35 Problem Notes None recorded. Procedures Surgical History Date Name Laterality Status Provider Name and Address Organization Details Recorded Time 5 Gel-One Knee Injection completed Gina Perez PA-C [address] [facility], [place], [address], [facility] 02/21/2025 09:48:25 4 Gel-One Knee Injection completed Gina Perez PA-C [address], [place], [address], [facility] 07/26/2024 09:53:21 4 84676 Therapeutic Exercise (1:1) completed Alejandro Mindiser, PT [address], [place], [address], [facility] 05/17/2024 21:28:27 4 64657: Low complexity PT Eval completed Alejandro Pyser, PT [address], [place], [address], [facility] 05/17/2024 21:28:29 4 G8417 BMI Above Upper Parameters, F/U Documented completed Alejandro Mindiser, PT [address], [place], [address], [facility] 05/17/2024 21:28:34 4 G8427 Current Medication Documented completed Alejandro Obregonser, PT [address], [place], [address], [facility] 05/17/2024 21:28:53 4 Gel-One Knee Injection completed Laz Atkins PA-C [address], [place], [address], [facility] 01/18/2024 16:54:48 4 Sports Knee 4&1 completed Laz Atkins PA-C [address] [facility], [place], [address], [facility] 12/27/2023 11:19:20 Imaging Results None recorded. Procedure Notes None recorded. Medical Equipment None Reported. Allergies Allergen ID Allergen Name Allergen Category Reaction Reaction Severity Criticality Documentation Date Start Date Code Code System Note Provider Name and Address Organization Details Recorded Time 745797 magnesium medicatio n Not available Not available Not available 05/04/2024 6574 [facility]Norm [facility] 10:37:01 Medications Name Sig Start Date [...] MIX 238 GRAMS ORALLY ONCE DIRECTED BY [facility] AT [facility] [...] Updated DateTime 02/21/2025 159.39 cm 26.6 kg/m2 35480.26 g [facility] 02/21/2025 09:04:14 Date Recorded Body height Body mass index (BMI) Body weight Provider Name and Address Organization Details Last Updated DateTime 05/04/2024 159.39 cm 26.8 kg/m2 38910.86 g DESTINEY SHAH [facility] 05/04/2024 10:36:26 Date Recorded Body height Body mass index (BMI) Body weight Provider Name and Address Organization Details Last Updated DateTime 05/29/2024 159.39 cm 26.6 kg/m2 37859.26 g NAPOLEON KAUR [facility] 05/29/2024 11:32:02 Date Recorded Body height Body mass index (BMI) Body weight Provider Name and Address Organization Details Last Updated DateTime 07/26/2024 159.39 cm 26.6 kg/m2 93983.26 g [facility] 07/26/2024 09:21:16 Social History Question Answer Notes LastModified by Organizat ion Details LastModified Time Tobacco Smoking Status Never Smoker MADELAINE MICHELLE hunt [place] - [place] [facility] 12/27/2023 08:51:44 Have You Ever Been [...] ICD10 Code Diagnosis IMO Codes Diagnosis Note [id number] JERMAINE Farris [address] [place] [address] 12/27/2023 08:15:04 12/27/2023 09:22:24 Pain of right knee joint 1163277929 60598 M25.561 Osteoarthr itis of right knee joint 0340387155 80396 M17.11 [id number] JERMAINE Farris [address] [place] [address] 01/18/2024 16:26:06 01/28/2024 09:03:56 Osteoarthritis of right knee joint 0500401526 60782 M17.11 [id number] JERMAINE Pineda [address] [place] [address] 03/20/2024 11:07:04 04/18/2024 14:36:24 Osteoarthritis of right knee joint 8686251859 34393 M17.11 [id number] MD Froylan Ash [facility] [address] [place] [address] 05/04/2024 10:29:07 05/26/2024 09:24:38 Osteoarthritis of right knee joint 8522620609 79915 M17.11 [id number] Alejandro Pyser, PT [facility] [address] [place] [address] 05/18/2024 13:11:02 05/18/2024 14:57:47 Osteoarthritis of knee 050644596 M17.11 [id number] Kenneth Quintero, RAGHU [facility] [place] [address] 05/29/2024 11:20:11 06/15/2024 18:35:32 [id number] Gina Perez PA-C [facility] [address] [place] [address] 07/26/2024 09:08:08 08/18/2024 10:37:29 Osteoarthritis of right knee joint 9997624880 35018 M17.11 [id number] Gina Perez PA-C [facility] - [facility] [address] [place] [address] 02/21/2025 09:00:22 03/02/2025 12:18:48 Osteoarthritis of right knee joint 2488484260 50433 M17.11 [id number] Health Concerns Section Related Observation LastModified by Organization Detai ls LastModified Time None Recorded Concern Status LastModified by Organization Details LastModified Time None Recorded Advance Directives Directive None Recorded Payers Insurance Date Sequence Insurance Name Policy Number Policy Christie Covered Member ID Christie Member ID Guarantor Name 03/02/2025 2 [place] [id number] Laura Maria [id number] Laura Maria 02/21/2025 1 [place] [employer] Laura Maria [id number] Laura Maria Notes Date Note Type [...] car transfers, and housework w/o pain. Watch [employer] sports, walk on beach. H/o B THR: R 2005, L 2006, Excellent Results Alejandro Ellis, PT [address], [place], [address], [facility] 05/18/2024 15:07:08 07/26/2024 text/html I am [...] arrest. 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 Past family, medical, social history [...] next 24-48 hours. Follow-up as symptoms dictate. [facility] speech recognition printing mechanist software was used to create portions of this document. An attempt at proofreading has been made to minimize errors. Please call for corrections. Gina Perez PA-C [address], [place], [address], [facility] 07/26/2024 09:53:39 02/21/2025 text/html I am [...] was in July. She continues to take nykw-fzy-lxyamjl medication intermittently for her pain. Past family, [...] hours. Follow-up as symptoms dictate. [facility] speech recognition printing mechanist software was used to create portions of this document. An attempt at proofreading has been made to minimize errors. Please call for corrections. Gina Perez PA-C [address], [place], [address], [facility] 02/21/2025 09:48:35 OBGyn Episode No OBEpisode recorded.
== END 2025-08-29 07:49 | disposition home or self-care (01) ==
LOC: HO.MAMMO 07:48
PROVIDERS: PCP Internal Medicine; Visit Provider Internal Medicine
DX: Z12.31 Encounter for screening mammogram for malignant neoplasm of breast (principal)
CPT/HCPCS: 77063; 77067

== ENCOUNTER → 2025-08-29 08:00 | Outpatient (BNV) | payer MEDICARE, SELFPAY | PROVIDERS: PCP Internal Medicine; Visit Provider Radiology Body Imaging | DX: Z12.31 Encounter for screening mammogram for malignant neoplasm of breast (principal) | CPT/HCPCS: 77063; 77067 ==